=== PATIENT | female | born 1945 | race Caucasian/White ===

== ENCOUNTER 2016-07-20 14:56 | Emergency (ER) | payer MEDICARE, OTHER ==
[~2016-07-20] VITALS: Ht 170.2 cm; Wt 95.3 kg
[~2016-07-20 14:56] MED LIST: AMOX500C2 PO; ASP81TEC PO; CALC-80 PO; CIPR500T78 PO; CODE-54 PO; CYCL10TA45 PO; ESTR0.5T PO; HYDR-3583 PO; METO-272 PO; METO50TA2 PO; METR500T PO; MULT-608 PO; OMEG-9 PO; Sertraline Hcl PO; TRIA1CAP15 PO; TRIA1CAP4 PO; VANC125C4 PO
--- NOTE | 2016-07-20 15:04 | ED Fall/Injury ---
General Stated Complaint: FALL Source: patient, EMS Exam Limitations: no limitations History of Present Illness Time seen by provider: 15:02 Initial Comments To ER per EMS with reports of a fall that occurred at the all the grocery store. Patient normally walks with a "walking stick". She states that she was going inside to get some Lysol spray and while walking across the parking lot she fell face first. She does not recall why she fell as to whether or not she tripped/stumbled but she states she did not have any preceding lightheadedness, shortness of breath, chest pain or palpitations. At this time she feels back to normal other than that she does have some neck pain, bilateral knee pain, right foot pain. She arrives in a hard cervical collar Occurred: just prior to arrival Severity: moderate Injuries/Pain Location: neck, lower extremity Associated Symptoms (Fall): Denies Symptoms Allergies and Home Medications Allergies Coded Allergies: clindamycin (Verified Allergy, Unknown, SEVERE DIARRHEA, 09/07/14) acetaminophen (Verified Adverse Reaction, Severe, NAUSEA, 09/07/14) codeine (Verified Adverse Reaction, Severe, NAUSEA, 09/07/14) Home Medications Metoprolol Tartrate 50 Mg Tablet, 50 MG PO BID, (Reported) Metronidazole 500 Mg Tab, 1 EACH PO TID, #21 Ref 0 Prescribed by: ANAT BERNABE on 09/09/14 1003 Vancomycin Hcl 125 Mg Capsule, 125 MG PO QID, #28 Ref 0 Prescribed by: ANAT BERNABE on 09/09/14 1003 [Sertraline Hcl] 50 MG TABLET, 25 MG PO HS, #30 Ref 2 Prescribed by: ANAT BERNABE on 09/09/14 1003 Constitutional: see HPI Eyes: No Symptoms Reported Ears, Nose, Mouth, Throat: no symptoms reported Respiratory: no symptoms reported Cardiovascular: no symptoms reported Genitourinary: no symptoms reported Musculoskeletal: see HPI, neck pain Skin: no symptoms reported Psychiatric/Neurological: No Symptoms Reported Past Nkfvdjo-Fjqvjr-Jzrnwr Hx Immunizations Up To Date Tetanus Booster (TDap): More than 5yrs PED Vaccines UTD: Yes Seasonal Allergies Seasonal Allergies: No Surgeries HX Surgeries: Yes Surgeries: Adenoidectomy, Tonsillectomy Respiratory Hx Respiratory Disorders: No Cardiovascular Hx Cardiac Disorders: Yes Cardiac Disorders: Hypertension Neurological Hx Neurological Disorders: No Reproductive System Hx Reproductive Disorders: No Sexually Transmitted Disease: No Female Reproductive Disorders: Denies Genitourinary Hx Genitourinary Disorders: No Gastrointestinal Hx Gastrointestinal Disorders: No Musculoskeletal Hx Musculoskeletal Disorders: Yes (ARTHRITIS) Endocrine Hx Endocrine Disorders: No HEENT HX ENT Disorders: No Cancer Hx Cancer: No Psychosocial Hx Psychiatric Problems: No Integumentary HX Skin/Integumentary Disorder: No Blood Transfusions Hx Blood Disorders: No Family Medical History Family Medial History: Arthritis Completed stroke Seizure disorder No Family History of: AIDS Abdominal aortic aneurysm Sutter's disease Alcoholism Alzheimer's disease Aphasia Asthma Cancer of mouth Cardiovascular disease Cataracts Colon cancer Congenital disease Congenital heart disease Coronary thrombosis Cystic fibrosis Deafness or hearing loss Dementia Diabetes mellitus Drug abuse Dysphasia Fibrocystic disease of breast Gastroenteritis Glaucoma Headache disorder Hypercholesterolemia Hypertension Infertility Kidney disease Myocardial infarction Neoplasm Not obtainable due to adoption Osteoporosis Parkinson's disease Prostate cancer Psychosocial problem Respiratory disorder Severe allergy Thyroid disease Tuberculosis Visual disorder Physical Exam Vital Signs Vital Sign - Last 12Hours 07/20/16 07/20/16 15:12 15:18 Temp 97.5 Pulse 70 Resp 18 B/P (MAP) 155/86 Pulse Ox 98 O2 Delivery Room Air Capillary Refill : General Appearance: WD/WN, no apparent distress HEENT: PERRL/EOMI, normal ENT inspection Neck: normal inspection, other (she is in a rigid cervical collar) Respiratory: lungs clear, normal breath sounds, no respiratory distress, no accessory muscle use Gastrointestinal: normal bowel sounds, non tender, soft Neurologic/Psychiatric: alert, normal mood/affect, oriented x 3 Comments GCS 15, laughing, joking, very pleasant. Shari Coma Score Best Eye Response: (4) Open Spontaneously Best Verbal Response: (5) Oriented Best Motor Response: (6) Obeys Commands [place] Total: 15 Progress/Results/Core Measures Results/Orders Lab Results Laboratory Tests Test 07/20/16 15:37 Range/Units White Blood Count 7.9 4.3-11.0 10^3/uL Red Blood Count 3.85 L 4.35-5.85 10^6/uL Hemoglobin 11.2 L 11.5-16.0 G/DL Hematocrit 34 L 35-52 % Mean Corpuscular Volume 88 80-99 FL Mean Corpuscular Hemoglobin 29 25-34 PG Mean Corpuscular Hemoglobin Concent 33 32-36 G/DL Red Cell Distribution Width 14.0 10.0-14.5 % Platelet Count 252 130-400 10^3/uL Mean Platelet Volume 9.4 7.4-10.4 FL Neutrophils (%) (Auto) 59 42-75 % Lymphocytes (%) (Auto) 27 12-44 % Monocytes (%) (Auto) 10 0-12 % Eosinophils (%) (Auto) 4 0-10 % Basophils (%) (Auto) 0 0-10 % Neutrophils # (Auto) 4.7 1.8-7.8 X 10^3 Lymphocytes # (Auto) 2.2 1.0-4.0 X 10^3 Monocytes # (Auto) 0.8 0.0-1.0 X 10^3 Eosinophils # (Auto) 0.3 0.0-0.3 10^3/uL Basophils # (Auto) 0.0 0.0-0.1 10^3/uL Sodium Level 141 135-145 MMOL/L Potassium Level 4.3 3.6-5.0 MMOL/L Chloride Level 109 H 98-107 MMOL/L Carbon Dioxide Level 28 21-32 MMOL/L Anion Gap 4 L 5-14 MMOL/L Blood Urea Nitrogen 23 H 7-18 MG/DL Creatinine 1.34 H 0.60-1.30 MG/DL Estimat Glomerular Filtration Rate 39 BUN/Creatinine Ratio 17 Glucose Level 95 70-105 MG/DL Calcium Level 9.2 8.5-10.1 MG/DL Total Bilirubin 0.3 0.1-1.0 MG/DL Aspartate Amino Transf (AST/SGOT) 28 5-34 U/L Alanine Aminotransferase (ALT/SGPT) 25 0-55 U/L Alkaline Phosphatase 120 40-136 U/L Total Protein 6.8 6.4-8.2 G/DL Albumin 3.6 3.2-4.5 G/DL My Orders Orders - AVRIL STANLEY APRN Cbc With Automated Diff (07/20/16 15:02) Comprehensive Metabolic Panel (07/20/16 15:02) Ct Head/Face/Cervical Wo (07/20/16 15:02) Knee, 3 Views, Bilateral (07/20/16 15:02) Foot, Right, 3 View (07/20/16 15:02) Vital Signs/I&O Vital Sign - Last 12Hours 07/20/16 07/20/16 15:12 15:18 Temp 97.5 97.5 Pulse 70 70 Resp 18 16 B/P (MAP) 155/86 155/86 (109) Pulse Ox 98 98 O2 Delivery Room Air Diagnostic Imaging Diagonstic Imaging: CT Comments NAME: LYNNETTE CHOI [facility] REC#: [id number] PT STATUS: REG ER : 1945 PHYSICIAN: AVRIL STANLEY APRN ADMIT DATE: 07/20/16/ER Draft Date of Exam:07/20/16 CT HEAD/FACE/CERVICAL WO PROCEDURE: CT head, face, and cervical spine without contrast. TECHNIQUE: Multiple contiguous axial images were obtained through the head, neck, and facial bones without the use of intravenous contrast. Sagittal and coronal reformations through the cervical spine and facial bones were also performed. INDICATION: Fall. Split lip. FINDINGS: CT facial bones: There is soft tissue swelling over the upper lip on the right. No fractures are demonstrated throughout the facial bones. Paranasal sinuses are well-aerated. Nasal septum is mildly deviated to the right. No evidence of dental fractures. IMPRESSION: Soft tissue swelling over the lip with no dental fractures or bony fractures of the face. CT head: The ventricles and cortical gyral pattern show mild atrophic changes. No evidence of intracranial hemorrhage. There is no mass effect. No extra-axial fluid collection. Basal cisterns are clear. Mastoid air cells and paranasal sinuses are clear. Bone windows show no calvarial fractures. IMPRESSION: Cortical atrophy otherwise negative CT head. CT cervical spine: Sagittal and coronal reformatted images show good alignment of the vertebral bodies. Body heights are well maintained. There is loss of disc space at the C6-C7 level with hypertrophic lipping both anteriorly and posteriorly along the endplates. There is no evidence of fracture or subluxation. Facets show good alignment with mild degenerative change. The atlantoaxial joint is in good alignment with degenerative change. The prevertebral soft tissues appear normal. IMPRESSION: Degenerative cervical disc disease with no acute abnormalities. Dictated on workstation # [id number] Dict: 07/20/16 1533 Trans: 07/20/16 1615 [facility] [id number] Interpreted by: MAMADOU MORALES MD Electronically signed by: Departure Communication Progress Notes 1814-cervical collar removed at this time. Impression Impression: Primary Impression: Fall Additional Impression: Cervical sprain Disposition: HOME, SELF-CARE Condition: Stable Departure-Patient Inst. Decision time for Depature: 16:29 Referrals: ANAT BERNABE DO (PCP/Family) Primary Care Physician Add. Discharge Instructions: 1. Return to ER for any concerns 2. Follow-up with your doctor next week 3. AVRIL STANLEY APRN Jul 20, 2016 15:04
--- NOTE | 2016-07-20 15:44 | Diagnostic Imaging Report ---
INDICATION: Bilateral knee pain. History of fall. EXAMINATION: Nonweightbearing images of the knee were obtained. FINDINGS: Diffuse osteoarthritic changes throughout both knees. Hypertrophic bony lipping along the medial and lateral femoral condyles and tibial plateau as well as the patellofemoral joint. There are no fractures. IMPRESSION: Diffuse osteoarthritis, bilaterally, with no acute changes. Dictated by: Dictated on workstation # [id number]
--- NOTE | 2016-07-20 15:45 | Diagnostic Imaging Report ---
INDICATION: Fall. Foot pain. EXAMINATION: Three views of the right foot were obtained. FINDINGS: There are no fractures or dislocations. MP joints are in good alignment as are the interphalangeal joints. There is considerable osteoarthritic disease along the metatarsal tarsal joints. IMPRESSION: Degenerative osteoarthritic changes of the midfoot with no acute abnormalities. Dictated by: Dictated on workstation # [id number]
[2016-07-20 16:04] LABS: BASOPHILS % (AUTO) 0 % (0-10); EOSINOPHILS # (AUTO) 0.3 10^3/uL (0.0-0.3); EOSINOPHILS % (AUTO) 4 % (0-10); LYMPHOCYTES # (AUTO) 2.2 X 10^3 (1.0-4.0); LYMPHOCYTES % (AUTO) 27 % (12-44); MEAN CORPUSCULAR HEMOGLOBIN 29 PG (25-34); MEAN CORPUSCULAR HGB CONC 33 G/DL (32-36); MEAN CORPUSCULAR VOLUME 88 FL (80-99); MEAN PLATELET VOLUME 9.4 FL (7.4-10.4); MONOCYTES # (AUTO) 0.8 X 10^3 (0.0-1.0); MONOCYTES % (AUTO) 10 % (0-12); NEUTROPHILS # (AUTO) 4.7 X 10^3 (1.8-7.8); NEUTROPHILS % (AUTO) 59 % (42-75); PLATELET COUNT 252 10^3/uL (130-400); RED BLOOD COUNT 3.85 10^6/uL (4.35-5.85); WHITE BLOOD COUNT 7.9 10^3/uL (4.3-11.0)
--- NOTE | 2016-07-20 16:16 | Diagnostic Imaging Report ---
PROCEDURE: CT head, face, and cervical spine without contrast. TECHNIQUE: Multiple contiguous axial images were obtained through the head, neck, and facial bones without the use of intravenous contrast. Sagittal and coronal reformations through the cervical spine and facial bones were also performed. INDICATION: Fall. Split lip. FINDINGS: CT facial bones: There is soft tissue swelling over the upper lip on the right. No fractures are demonstrated throughout the facial bones. Paranasal sinuses are well-aerated. Nasal septum is mildly deviated to the right. No evidence of dental fractures. IMPRESSION: Soft tissue swelling over the lip with no dental fractures or bony fractures of the face. CT head: The ventricles and cortical gyral pattern show mild atrophic changes. No evidence of intracranial hemorrhage. There is no mass effect. No extra-axial fluid collection. Basal cisterns are clear. Mastoid air cells and paranasal sinuses are clear. Bone windows show no calvarial fractures. IMPRESSION: Cortical atrophy otherwise negative CT head. CT cervical spine: Sagittal and coronal reformatted images show good alignment of the vertebral bodies. Body heights are well maintained. There is loss of disc space at the C6-C7 level with hypertrophic lipping both anteriorly and posteriorly along the endplates. There is no evidence of fracture or subluxation. Facets show good alignment with mild degenerative change. The atlantoaxial joint is in good alignment with degenerative change. The prevertebral soft tissues appear normal. IMPRESSION: Degenerative cervical disc disease with no acute abnormalities. Dictated by: Dictated on workstation # [id number]
[2016-07-20 16:22] LABS: ALBUMIN 3.6 G/DL (3.2-4.5); BILIRUBIN,TOTAL 0.3 MG/DL (0.1-1.0); CALCIUM 9.2 MG/DL (8.5-10.1); CREATININE SERUM 1.34 MG/DL (0.60-1.30); POTASSIUM 4.3 MMOL/L (3.6-5.0); TOTAL PROTEIN 6.8 G/DL (6.4-8.2)
[2016-07-20 16:55] VITALS: BP 152/76
--- OUTSIDE RECORDS SUMMARY | 2016-08-12 08:51 | XMS REPORT | Continuity of Care Document ---
Author Author [facility] Organization [facility] Address Unknown Phone Unavailable Allergies Active Description Code Type Severity Reaction Onset Reported/Identified Relationship to Patient Clinical Status Yes No Known Drug Allergies [id number] Drug Allergy Unknown N/ A 07/17/2011 Yes acetaminophen [id number] Drug Allergy Severe NAUSEA 09/07/2014 Yes codeine [id number] Drug Allergy Severe NAUSEA 09/07/2014 Yes clindamycin [id number] Drug Allergy Unknown SEVERE DIARRHEA 09/07/2014 Medications Problems Date Dx Coded Attending Type Code Diagnosis Diagnosed By 07/17/2011 Ot 610.2 FIBROADENOSIS OF BREAST 07/17/2011 Ot 610.3 FIBROSCLEROSIS OF BREAST 07/17/2011 Ot 610.4 MAMMARY DUCT ECTASIA 07/17/2011 Ot 610.8 BENIGN MAMM DYSPLAS NEC 07/17/2011 Ot 722.4 CERVICAL DISC DEGEN 09/30/2011 Ot 451.2 THROMBOPHLEBITIS LEG NOS 09/30/2011 Ot 729.5 PAIN IN LIMB 11/30/2011 Ot 459.9 CIRCULATORY DISEASE NOS 04/18/2012 Ot 300.00 ANXIETY STATE NOS 04/18/2012 Ot 401.9 HYPERTENSION NOS 04/18/2012 Ot 473.9 CHRONIC SINUSITIS NOS 04/18/2012 Ot 785.1 PALPITATIONS 04/18/2012 Ot 787.02 NAUSEA ALONE 02/12/2014 ANAT GRIFFIN DO Ot 599.0 URIN TRACT INFECTION NOS 02/12/2014 ANAT GRIFFIN DO Ot 847.0 SPRAIN OF NECK 02/12/2014 ANAT GRIFFIN DO Ot 847.1 SPRAIN THORACIC REGION 02/12/2014 ANAT GRIFFIN DO Ot 847.2 SPRAIN LUMBAR REGION 02/12/2014 ANAT GRIFFIN DO Ot 920 CONTUSION FACE/SCALP/NCK 02/12/2014 ANAT GRIFFIN DO Ot 923.00 CONTUSION SHOULDER REG 02/12/2014 ANAT GRIFFIN DO Ot 924.11 CONTUSION OF KNEE 02/12/2014 ELIAS KIMBALL ANAT Toney Ot 959.09 INJURY OF FACE AND NECK 02/12/2014 ANAT GRIFFIN DO Ot E000.8 OTHER EXTERNAL CAUSE STATUS 02/12/2014 ANAT GRIFFIN DO Ot E849.0 ACCIDENT IN HOME 02/12/2014 ANAT GRIFFIN DO Ot E888.1 FALL STRIKING OBJECT NEC 04/21/2014 Ot V76.12 04/21/2014 Ot 626.8 04/21/2014 Ot 611.72 04/21/2014 Ot V76.12 04/21/2014 Ot 793.80 04/21/2014 Ot 610.0 04/21/2014 Ot 611.72 04/21/2014 Ot 610.3 04/21/2014 Ot 610.3 04/21/2014 Ot 793.89 04/21/2014 Ot V67.09 04/21/2014 Ot 610.0 04/21/2014 Ot 611.72 04/21/2014 Ot V72.63 04/21/2014 Ot V74.8 04/21/2014 Ot V67.09 04/21/2014 Ot 721.3 04/21/2014 Ot 722.4 04/21/2014 Ot 729.5 04/21/2014 Ot E000.8 04/21/2014 Ot E849.0 04/21/2014 Ot E888.9 04/21/2014 ANAT BERNABE DO Ot V76.12 04/21/2014 ANAT BERNABE DO Ot 722.4 04/21/2014 ANAT BERNABE DO Ot 959.9 04/21/2014 ANAT BERNABE DO Ot E928.9 04/21/2014 KELLI BERNABE LINOLEUM TILE LAYER Ot 729.5 04/21/2014 KELLI BERNABE LINOLEUM TILE LAYER Ot 729.81 04/21/2014 ANAT BERNABE DO Ot 959.4 04/21/2014 ANAT BERNABE DO Ot E000.8 04/21/2014 ANAT BERNABE DO Ot E849.0 04/21/2014 ANAT BERNABE DO Ot E888.9 05/22/2014 ANAT BERNABE DO Ot 465.9 05/22/2014 ANAT BERNABE DO Ot 787.91 08/23/2014 Ot V76.12 08/23/2014 Ot 626.8 08/23/2014 Ot 611.72 08/23/2014 Ot V76.12 08/23/2014 Ot 793.80 08/23/2014 Ot 610.0 08/23/2014 Ot 611.72 08/23/2014 Ot 610.3 08/23/2014 Ot 610.3 08/23/2014 Ot 793.89 08/23/2014 Ot V67.09 08/23/2014 Ot 610.0 08/23/2014 Ot 611.72 08/23/2014 Ot V72.63 08/23/2014 Ot V74.8 08/23/2014 Ot V67.09 08/23/2014 Ot 721.3 08/23/2014 Ot 722.4 08/23/2014 Ot 729.5 08/23/2014 Ot E000.8 08/23/2014 Ot E849.0 08/23/2014 Ot E888.9 08/23/2014 ANAT BERNABE DO Ot V76.12 08/23/2014 ANAT BERNABE DO Ot 722.4 08/23/2014 ANAT BERNABE DO Ot 959.9 08/23/2014 ANAT BERNABE DO Ot E928.9 08/23/2014 KELLI BERNABE LINOLEUM TILE LAYER Ot 729.5 08/23/2014 KELLI BERNABE LINOLEUM TILE LAYER Ot 729.81 08/23/2014 ANAT BERNABE DO Ot 959.4 08/23/2014 ANAT BERNABE DO Ot E000.8 08/23/2014 ANAT BERNABE DO Ot E849.0 08/23/2014 ANAT BERNABE DO Ot E888.9 08/23/2014 ANAT BERNABE DO Ot 465.9 08/23/2014 ANAT BERNABE DO Ot 787.91 09/09/2014 ANAT BERNABE DO Ot 008.45 INTESTINAL INFECTION DUE TO CLOSTRIDIUM 09/09/2014 ANAT BERNABE DO Ot 276.51 DEHYDRATION 09/09/2014 ANAT BERNABE DO Ot 278.00 OBESITY, NOS 09/09/2014 ANAT BERNABE DO Ot 311 DEPRESSIVE DISORDER NEC 09/09/2014 ANAT BERNABE DO Ot 401.9 HYPERTENSION NOS 09/09/2014 ANAT BERNABE DO Ot 455.6 HEMORRHOIDS NOS 09/09/2014 ANAT BERNABE DO Ot 459.81 VENOUS INSUFFICIENCY NOS 09/09/2014 ANAT BERNABE DO Ot 477.9 ALLERGIC RHINITIS NOS 09/09/2014 ANAT BERNABE DO Ot 584.9 ACUTE RENAL FAILURE, UNSPECIFIED 09/09/2014 ANAT BERNABE DO Ot 588.89 OTH SPEC DISORDERS RESULTING FROM IMPAIR 09/09/2014 ANAT BERNABE DO Ot 715.89 OSTEOARTHROSIS-MULT SITE 09/09/2014 ANAT BERNABE DO, Ot E930.9 ADV EFF ANTIBIOTIC NOS 09/09/2014 ANAT BERNABE DO, Ot E944.5 ADV EFF ELECTROLYTE AGNT 09/09/2014 ANAT BERNABE DO, Ot V58.62 ENCOUNT FOR LONG-TERM(CURRENT) USE OF AN 09/09/2014 ANAT BERNABE DO Ot V85.25 BODY MASS INDEX 29.0-29.9, ADULT 10/27/2014 ANAT BERNABE DO Ot 787.91 11/21/2014 ANAT BERNABE DO Ot 787.91 DIARRHEA 02/20/2016 Ot 610.0 SOLITARY CYST OF BREAST 02/20/2016 Ot 611.72 LUMP OR MASS IN BREAST 02/20/2016 Ot 610.3 FIBROSCLEROSIS OF BREAST 02/20/2016 Ot 610.3 FIBROSCLEROSIS OF BREAST 02/20/2016 Ot 793.89 OTH (ABN) FINDINGS ON RADIOLOGICAL EXAMI 02/20/2016 Ot V67.09 SURGERY FOLLOW-UP, OTHER SURGERY 02/20/2016 Ot 610.0 SOLITARY CYST OF BREAST 02/20/2016 Ot 611.72 LUMP OR MASS IN BREAST 02/20/2016 Ot V72.63 PRE-PROCEDURAL LABORATORY EXAMINATION 02/20/2016 Ot V74.8 SCREEN-BACTERIAL DIS NEC 02/20/2016 Ot V67.09 SURGERY FOLLOW-UP, OTHER SURGERY 02/20/2016 Ot 721.3 LUMBOSACRAL SPONDYLOSIS 02/20/2016 Ot 722.4 CERVICAL DISC DEGEN 02/20/2016 Ot 729.5 PAIN IN LIMB 02/20/2016 Ot E000.8 OTHER EXTERNAL CAUSE STATUS 02/20/2016 Ot E849.0 ACCIDENT IN HOME 02/20/2016 Ot E888.9 FALL NOS 02/20/2016 ANAT BERNABE DO Ot V76.12 OTH SCREEN MAMMO-MALIGN NEOPLASM OF ANITA 02/20/2016 ANAT BERNABE DO Ot 722.4 CERVICAL DISC DEGEN 02/20/2016 ANAT BERNABE DO Ot 959.9 INJURY-SITE NOS 02/20/2016 ANAT BERNABE DO Ot E928.9 ACCIDENT NOS 02/20/2016 FLORECITAKELLI Bryon LINOLEUM TILE LAYER Ot 729.5 PAIN IN LIMB 02/20/2016 KELLI BERNABE LINOLEUM TILE LAYER Ot 729.81 SWELLING OF LIMB 02/20/2016 ANAT BERNABE DO Ot 959.4 HAND INJURY NOS 02/20/2016 ANAT BERNABE DO Ot E000.8 OTHER EXTERNAL CAUSE STATUS 02/20/2016 ANAT BERNABE DO Ot E849.0 ACCIDENT IN HOME 02/20/2016 ANAT BERNABE DO Ot E888.9 FALL NOS 02/20/2016 ANAT BERNABE DO Ot 465.9 ACUTE URI NOS 02/20/2016 ANAT BERNABE DO Ot 787.91 DIARRHEA 02/20/2016 ANAT BERNABE DO Ot 787.91 DIARRHEA 02/24/2016 ANAT BERNABE DO Ot Z12.31 ENCNTR SCREEN MAMMOGRAM FOR MALIGNANT NE 03/01/2016 ANAT BERNABE DO Ot Z12.31 ENCNTR SCREEN MAMMOGRAM FOR MALIGNANT NE 03/06/2016 ANAT BERNABE DO Ot R92.8 OTH ABN AND INCONCLUSIVE FINDINGS ON DX 03/27/2016 ANAT BERNABE DO Ot R92.8 OTH ABN AND INCONCLUSIVE FINDINGS ON DX 07/23/2016 AVRIL STANLEY APRN Ot I10 ESSENTIAL (PRIMARY) HYPERTENSION 07/23/2016 AVRIL STANLEY APRN Ot M17.0 BILATERAL PRIMARY OSTEOARTHRITIS OF KNEE 07/23/2016 AVRIL STANLEY APRN Ot M19.071 PRIMARY OSTEOARTHRITIS, RIGHT ANKLE AND 07/23/2016 AVRIL STANLEY APRN Ot S13.4XXA SPRAIN OF LIGAMENTS OF CERVICAL SPINE, I 07/23/2016 AVRIL STANLEY APRN Ot S19.9XXA UNSPECIFIED INJURY OF NECK, INITIAL ENCO 07/23/2016 AVRIL STANLEY APRN Ot W18.30XA FALL ON SAME LEVEL, UNSPECIFIED, INITIAL 07/23/2016 AVRIL STANLEY APRN Ot Y92.[address] OF OCCURRENCE O 07/23/2016 AVRIL STANLEY APRN Ot Y99.8 OTHER EXTERNAL CAUSE STATUS 07/23/2016 AVRIL STANLEY APRN Ot Z79.899 OTHER RETORT ENGINEER (CURRENT) DRUG THERAPY Procedures Results Test Result Range Complete blood count (CBC) with automated white blood cell (WBC) differential - 07/20/16 15:37 Blood leukocytes automated count (number/volume) 7.9 10*3/ uL 4.3-11.0 Blood erythrocytes automated count (number/volume) 3.85 10*6 /uL 4.35-5.85 Venous blood hemoglobin measurement (mass/volume) 11.2 g/dL 11.5-16.0 Blood hematocrit (volume fraction) 34 % 35-52 Automated erythrocyte mean corpuscular volume 88 [foz_us] 80-99 Automated erythrocyte mean corpuscular hemoglobin (mass per erythrocyte) 29 pg 25-34 Automated erythrocyte mean corpuscular hemoglobin concentration measurement ( mass/volume) 33 g/dL 32-36 Automated erythrocyte distribution width ratio 14.0 % 10.0-14.5 Automated blood platelet count (count/volume) 252 10*3/uL 130-400 Automated blood platelet mean volume measurement 9.4 [foz_us ] 7.4-10.4 Automated blood neutrophils/100 leukocytes 59 % 42-75 Automated blood lymphocytes/100 leukocytes 27 % 12-44 Blood monocytes/100 leukocytes 10 % 0-12 Automated blood eosinophils/100 leukocytes 4 % 0-10 Automated blood basophils/100 leukocytes 0 % 0-10 Blood neutrophils automated count (number/volume) 4.7 10*3 1.8-7.8 Blood lymphocytes automated count (number/volume) 2.2 10*3 1.0-4.0 Blood monocytes automated count (number/volume) 0.8 10*3 0.0-1.0 Automated eosinophil count 0.3 10*3/uL 0.0-0.3 Automated blood basophil count (count/volume) 0.0 10*3/uL 0.0-0.1 Comprehensive metabolic panel - 07/20/16 15:37 Serum or plasma sodium measurement (moles/volume) 141 mmol/ L 135-145 Serum or plasma potassium measurement (moles/volume) 4.3 mmol/L 3.6-5.0 Serum or plasma chloride measurement (moles/volume) 109 mmol /L 98-107 Carbon dioxide 28 mmol/L 21-32 Serum or plasma anion gap determination (moles/volume) 4 mmol/L 5-14 Serum or plasma urea nitrogen measurement (mass/volume) 23 mg/dL 7-18 Serum or plasma creatinine measurement (mass/volume) 1.34 mg /dL 0.60-1.30 Serum or plasma urea nitrogen/creatinine mass ratio 17 NRG Serum or plasma creatinine measurement with calculation of estimated glomerular filtration rate 39 NRG Serum or plasma glucose measurement (mass/volume) 95 mg/dL 70-105 Serum or plasma calcium measurement (mass/volume) 9.2 mg/dL 8.5-10.1 Serum or plasma total bilirubin measurement (mass/volume) 0.3 mg/dL 0.1-1.0 Serum or plasma alkaline phosphatase measurement (enzymatic activity/volume) 120 U/L 40-136 Serum or plasma aspartate aminotransferase measurement (enzymatic activity/ volume) 28 U/L 5-34 Serum or plasma alanine aminotransferase measurement (enzymatic activity/volume ) 25 U/L 0-55 Serum or plasma protein measurement (mass/volume) 6.8 g/dL 6.4-8.2 Serum or plasma albumin measurement (mass/volume) 3.6 g/dL 3.2-4.5 Encounters ACCT No. Visit Date/Time Discharge Status Pt. Type Provider Facility Loc./Unit Complaint [id number] 07/20/2016 14:58:00 2016 16:55:00 DIS Outpatient AVRIL STANLEY APRN [facility] ER FALL [id number] 11/22/2014 00:14:00 2014 23:59:59 CLS Preadmit ANAT BERNABE DO [facility] LAB DIARRHEA [id number] 08/23/2014 16:43:00 2014 00:01:00 DIS Outpatient ANAT BERNABE DO [facility] LAB DIARRHEA [id number] 09/06/2014 17:39:00 2014 12:30:00 DIS Inpatient ANAT BERNABE DO [facility] SURGICAL DEHYDRATION CDIFF [id number] 04/21/2014 14:41:00 2013 23:59:59 CLS Outpatient ANAT BERNABE DO [facility] LAB DIZZINES,UTI [id number] 02/12/2014 18:54:00 2013 23:59:59 CLS Emergency ELIAS ANAT KIMBALL [facility] ER FALL ABDOMINAL/NECK PAIN [id number] 12/30/2013 17:27:00 2013 23:59:59 CLS Outpatient ANAT BERNABE DO [facility] RAD TRAUMA [id number] 09/18/2013 11:17:00 2013 23:59:59 CLS Outpatient KELLI BERNABE Bryon MARKS [facility] RAD LOWER BILAT SWELLING [id number] 09/03/2013 16:18:00 2013 23:59:59 CLS Outpatient ANAT BERNABE DO [facility] RAD TRAUMA [id number] 07/08/2013 10:56:00 2013 23:59:59 CLS Outpatient ANAT BERNABE DO [facility] RAD SCREENING [id number] 03/05/2016 08:07:00 ACT Outpatient ANAT BERNABE DO [facility] RAD ABNORMAL MAMMO [id number] 02/20/2016 10:51:00 ACT Outpatient ANAT BERNABE DO [facility] RAD SCREENING [id number] 05/02/2012 10:39:00 Document Registration [id number] 04/18/2012 12:08:00 Document Registration [id number] 02/06/2012 13:08:00 Document Registration [id number] 11/30/2011 02:42:00 Document Registration [id number] 09/30/2011 19:53:00 Document Registration [id number] 07/17/2011 05:38:00 Document Registration [id number] 07/10/2011 08:37:00 Document Registration [id number] 07/03/2011 08:49:00 Document Registration [id number] 06/04/2011 12:20:00 Document Registration [id number] 11/01/2010 11:33:00 Document Registration [id number] 09/20/2010 14:12:00 Document Registration [id number] 06/21/2010 10:54:00 Document Registration [id number] 06/12/2010 09:54:00 Document Registration [id number] 05/17/2010 10:48:00 Document Registration [id number] 04/20/2009 09:58:00 Document Registration
== END 2016-07-20 16:55 | disposition home or self-care (01) ==
LOC: EDUNIT# 14:56 → ER 14:58
DX: S13.4XXA Sprain of ligaments of cervical spine, initial encounter (principal); M17.0 Bilateral primary osteoarthritis of knee; M19.071 Primary osteoarthritis, right ankle and foot; I10 Essential (primary) hypertension; Z79.899 Other long term (current) drug therapy; W18.30XA Fall on same level, unspecified, initial encounter; Y92.481 Parking lot as the place of occurrence of the external cause; Y99.8 Other external cause status
CPT/HCPCS: 36415; 70450; 70486; 72125; 73630; 80053; 85025; 99283

== ENCOUNTER → 2016-11-23 | Outpatient (CLI) | payer MEDICARE, OTHER ==
--- NOTE | 2016-11-23 18:10 | Diagnostic Imaging Report ---
PROCEDURE: MR imaging of the brain without contrast. TECHNIQUE: Multiplanar, multisequence MR imaging of the brain was performed without contrast. INDICATION: Hit head on wall in August 2016. Continued headaches. FINDINGS: There is no restricted diffusion to suggest ischemic process. The ventricles and cortical gyral pattern are normal. There is no intracranial hemorrhage or mass effect. There is no extra-axial fluid collection. Basal cisterns are clear. CP angles appear normal. T2 FLAIR sequence shows diffuse periventricular white matter changes throughout the centrum semiovale. These do not significantly involve the corpus callosum and are more peripheral in nature. Brainstem appears normal. The optic chiasm and pituitary are normal. There are no intracranial masses. There is a very small amount of fluid noted in the right mastoid air cells. Left mastoid air cells are clear. Paranasal sinuses are clear. Orbital contents are symmetrical. IMPRESSION: 1. Bilateral white matter changes felt most likely to represent chronic small vessel disease. Mild cortical atrophy. 2. No acute intracranial abnormalities or masses demonstrated. Dictated by: Dictated on workstation # [id number]
== END ==
LOC: RAD 15:13
PROVIDERS: ATTEND Otolaryngology Otolaryngology/Facial Plastic Surgery
DX: R51 Headache (principal); R43.2 Parageusia
CPT/HCPCS: 70551

== ENCOUNTER → 2016-12-27 | Outpatient (CLI) | payer MEDICARE, OTHER ==
--- NOTE | 2016-12-27 13:39 | Diagnostic Imaging Report ---
INDICATION: Cough. PA and lateral views were obtained. FINDINGS: The heart size, mediastinal configuration, and pulmonary vascularity are within normal limits. There is no pleural effusion, pneumothorax, or pneumonia. The osseous structures are unremarkable. IMPRESSION: No acute cardiopulmonary abnormality. Dictated by: Dictated on workstation # [id number]
== END ==
LOC: RAD 12:54
PROVIDERS: ATTEND Internal Medicine
DX: R05 Cough (principal)
CPT/HCPCS: 71020

== ENCOUNTER → 2017-01-02 | Outpatient (CLI) | payer MEDICARE, OTHER ==
[~2017-01-02] MED LIST changes: +ALBU90AE; +AMOX-355 PO; +CETI10TA17 PO; +FLUT16SP22 NS; +FLUT1BLS INH; +MONT10TA24 PO; +MULT-1029 PO; +NAPR220T66 PO; +NYST1000 PO; +OMEP20CA12 PO; +PRD10T; +RT-ALBUINH INH; +TRIA1TAB3 PO
[2017-01-06 15:55] LABS: B PARAPERTUSIS DNA Not Detected (Not Detected); B PERTUSSIS DNA Not Detected (Not Detected)
== END ==
LOC: LAB 12:14
PROVIDERS: ATTEND Internal Medicine
DX: R05 Cough (principal)
CPT/HCPCS: 87798

== ENCOUNTER 2017-01-18 08:18 | Emergency (ER) | payer MEDICARE, OTHER ==
[~2017-01-18] VITALS: Ht 165.1 cm; Wt 94.3 kg
[~2017-01-18 08:18] MED LIST changes: -ALBU90AE; -AMOX-355 PO; -CETI10TA17 PO; -FLUT16SP22 NS; -FLUT1BLS INH; -MONT10TA24 PO; -MULT-1029 PO; -NAPR220T66 PO; -NYST1000 PO; -OMEP20CA12 PO; -PRD10T; -RT-ALBUINH INH; -TRIA1TAB3 PO
[2017-01-18] MEDS ORDERED: PRD10T (08:38)
[2017-01-18] MEDS ORDERED: OMEP20CA12 (08:38)
[2017-01-18] MEDS ORDERED: FLUT16SP22 (08:38)
[2017-01-18] MEDS ORDERED: ALBU90AE (08:38)
[2017-01-18] MEDS ORDERED: MONT10TA24 (08:38)
[2017-01-18 09:15] LABS: BASOPHILS % (AUTO) 0 % (0-10); EOSINOPHILS # (AUTO) 0.1 10^3/uL (0.0-0.3); EOSINOPHILS % (AUTO) 1 % (0-10); LYMPHOCYTES # (AUTO) 1.2 X 10^3 (1.0-4.0); LYMPHOCYTES % (AUTO) 14 % (12-44); MEAN CORPUSCULAR HEMOGLOBIN 30 PG (25-34); MEAN CORPUSCULAR HGB CONC 33 G/DL (32-36); MEAN CORPUSCULAR VOLUME 89 FL (80-99); MEAN PLATELET VOLUME 8.9 FL (7.4-10.4); MONOCYTES # (AUTO) 0.5 X 10^3 (0.0-1.0); MONOCYTES % (AUTO) 5 % (0-12); NEUTROPHILS # (AUTO) 6.8 X 10^3 (1.8-7.8); NEUTROPHILS % (AUTO) 79 % (42-75); PLATELET COUNT 287 10^3/uL (130-400); RED BLOOD COUNT 4.07 10^6/uL (4.35-5.85); RED CELL DISTRIBUTION WIDTH 13.1 % (10.0-14.5); WHITE BLOOD COUNT 8.7 10^3/uL (4.3-11.0)
--- NOTE | 2017-01-18 09:31 | Diagnostic Imaging Report ---
PROCEDURE: CT sinuses without contrast TECHNIQUE: Multiple contiguous axial images were obtained through the sinuses without the use of intravenous contrast. Coronal and sagittal reformations were then performed. INDICATION: Cough and sinus drainage. Visualized paranasal sinuses reveal no air-fluid level. There is minimal mural thickening within right ethmoid air cells and right maxillary sinus. The ostiomeatal complexes are patent with note made of right walter bullosa. There is also mild rightward bowing of the nasal septum with rightward septal spurring. Mastoid air cells are unremarkable in appearance. Note is made of horizontally oriented tooth along the floor of the right maxillary sinus. IMPRESSION: Minimal chronic right ethmoiditis and right maxillary sinusitis without evidence of acute sinusitis or air-fluid level. Dictated by: Dictated on workstation # [id number]
[2017-01-18 09:35] LABS: ALBUMIN 3.4 GM/DL (3.2-4.5); BILIRUBIN,TOTAL 0.4 MG/DL (0.1-1.0); CALCIUM 9.7 MG/DL (8.5-10.1); CREATININE SERUM 1.45 MG/DL (0.60-1.30); POTASSIUM 3.8 MMOL/L (3.6-5.0); TOTAL PROTEIN 7.4 GM/DL (6.4-8.2)
[2017-01-18 09:43] LABS: ERYTHROCYTE SEDIMENTATION RATE 77 MM/HR (0-30)
--- NOTE | 2017-01-18 10:14 | ED General ---
General Chief Complaint: Cough/Cold/Flu Symptoms Stated Complaint: WEAK,SINUS ISSUE Nursing Triage Note: SINUS SYMPTOMS SINCE AUGUST WAS TREATED X1 WEEK AGO WITH A PACK BY DR NGUYEN. SAW DR DESAI YESTERDAY WAS GIVEN STEROID IM AND WAS TO START ON PREDISON AND NASAL SPRAY HAS NOT USED IT YET Nursing Sepsis Screen: No Definite Risk Source of Information: Patient Exam Limitations: No Limitations History of Present Illness Time Seen by Provider: 10:09 Initial Comments The patient is a 71-year-old white female who presents the emergency room with a complaint of a cough since August. She reports the sensation of heavy thick postnasal drainage. She is seen Dr. Nguyen her primary physician several times. She is avoided antibiotics as she had a previous severe bout of C. difficile that about 2 years ago she recently saw Dr. Meneses. A variety of medications has been prescribed many of which she is loathe to take. She was given a shot of the cortisone yesterday. She was prescribed a steroid nasal spray and oral prednisone to be taken. She has not taken the prednisone because she states she has to take it 6 times a day. She was informed that this was 6 tablets a day and not 6 times a day. Timing/Duration: Other (4 months) Allergies and Home Medications Allergies Coded Allergies: clindamycin (Verified Allergy, Unknown, SEVERE DIARRHEA, 09/07/14) acetaminophen (Verified Adverse Reaction, Severe, NAUSEA, 09/07/14) codeine (Verified Adverse Reaction, Severe, NAUSEA, 09/07/14) Home Medications Albuterol Sulfate 90 Mcg Aer.pow.ba, (Reported) Fluticasone Propionate 16 Gm Bradford.susp, (Reported) Metoprolol Tartrate 50 Mg Tablet, 50 MG PO BID, (Reported) Montelukast Sodium 10 Mg Tablet, (Reported) Omeprazole 20 Mg Capsule.dr, (Reported) Prednisone 10 Mg Tab, (Reported) [Sertraline Hcl] 50 MG TABLET, 25 MG PO HS, #30 Ref 2 Prescribed by: ANAT NGUYEN on 09/09/14 1003 Constitutional: see HPI EENTM: hoarseness, nose congestion, throat pain Respiratory: cough Cardiovascular: no symptoms reported Gastrointestinal: no symptoms reported Genitourinary: no symptoms reported Musculoskeletal: no symptoms reported Skin: no symptoms reported Psychiatric/Neurological: No Symptoms Reported Past Zzoxzxy-Jdqxck-Vsaaiw Hx Patient Social History Alcohol Use: Denies Use Recreational Drug Use: No Smoking Status: Never a Smoker Recent Foreign Travel: No Contact w/Someone Who Travel: No Recent Infectious Disease Expo: No Immunizations Up To Date Tetanus Booster (TDap): More than 5yrs PED Vaccines UTD: Yes Seasonal Allergies Seasonal Allergies: No Surgeries History of Surgeries: Yes Surgeries: Adenoidectomy, Tonsillectomy Respiratory History of Respiratory Disorde: No Cardiovascular History of Cardiac Disorders: Yes Cardiac Disorders: Hypertension Neurological History of Neurological Disord: No Reproductive System Hx Reproductive Disorders: No Sexually Transmitted Disease: No Female Reproductive Disorders: Denies Gastrointestinal History of Gastrointestinal Di: No Musculoskeletal History of Musculoskeletal Dis: Yes (ARTHRITIS) Endocrine History of Endocrine Disorders: No Cancer History of Cancer: No Psychosocial History of Psychiatric Problem: No Integumentary History of Skin or Integumenta: No Blood Transfusions History of Blood Disorders: No Family Medical History Family Medial History: Arthritis Completed stroke Seizure disorder No Family History of: AIDS Abdominal aortic aneurysm Reeves's disease Alcoholism Alzheimer's disease Aphasia Asthma Cancer of mouth Cardiovascular disease Cataracts Colon cancer Congenital disease Congenital heart disease Coronary thrombosis Cystic fibrosis Deafness or hearing loss Dementia Diabetes mellitus Drug abuse Dysphasia Fibrocystic disease of breast Gastroenteritis Glaucoma Headache disorder Hypercholesterolemia Hypertension Infertility Kidney disease Myocardial infarction Neoplasm Not obtainable due to adoption Osteoporosis Parkinson's disease Prostate cancer Psychosocial problem Respiratory disorder Severe allergy Thyroid disease Tuberculosis Visual disorder Physical Exam Vital Signs Vital Sign - Last 12Hours 01/18/17 08:23 Temp 97.7 Pulse 74 Resp 18 B/P (MAP) 161/86 Pulse Ox 96 O2 Delivery Room Air Capillary Refill : Less Than 3 Seconds General Appearance: Mild Distress Eyes: Bilateral Eye Normal Inspection HEENT: Other (dry sticky tongue) Neck: Full Range of Motion, Normal Inspection, Non Tender, Supple, Carotid Bruit Respiratory: Chest Non Tender, Lungs Clear, Normal Breath Sounds, No Accessory Muscle Use, No Respiratory Distress Cardiovascular: Regular Rate, Rhythm, No Edema, No Gallop, No JVD, No Murmur, Normal Peripheral Pulses Gastrointestinal: Normal Bowel Sounds, No Organomegaly, No Pulsatile Mass, Non Tender, Soft Back: Normal Inspection, No CVA Tenderness, No Vertebral Tenderness Extremity: Normal Capillary Refill, Normal Inspection, Normal Range of Motion, Non Tender, No Calf Tenderness, No Pedal Edema Neurologic/Psychiatric: Alert, Oriented x3, No Motor/Sensory Deficits, Normal Mood/Affect Skin: Normal Color, Warm/Dry Lymphatic: No Adenopathy Progress/Results/Core Measures Results/Orders Lab Results Laboratory Tests Test 01/18/17 09:02 Range/Units White Blood Count 8.7 4.3-11.0 10^3/uL Red Blood Count 4.07 L 4.35-5.85 10^6/uL Hemoglobin 12.0 11.5-16.0 G/DL Hematocrit 36 35-52 % Mean Corpuscular Volume 89 80-99 FL Mean Corpuscular Hemoglobin 30 25-34 PG Mean Corpuscular Hemoglobin Concent 33 32-36 G/DL Red Cell Distribution Width 13.1 10.0-14.5 % Platelet Count 287 130-400 10^3/uL Mean Platelet Volume 8.9 7.4-10.4 FL Neutrophils (%) (Auto) 79 H 42-75 % Lymphocytes (%) (Auto) 14 12-44 % Monocytes (%) (Auto) 5 0-12 % Eosinophils (%) (Auto) 1 0-10 % Basophils (%) (Auto) 0 0-10 % Neutrophils # (Auto) 6.8 1.8-7.8 X 10^3 Lymphocytes # (Auto) 1.2 1.0-4.0 X 10^3 Monocytes # (Auto) 0.5 0.0-1.0 X 10^3 Eosinophils # (Auto) 0.1 0.0-0.3 10^3/uL Basophils # (Auto) 0.0 0.0-0.1 10^3/uL Erythrocyte Sedimentation Rate 77 H 0-30 MM/HR Sodium Level 139 135-145 MMOL/L Potassium Level 3.8 3.6-5.0 MMOL/L Chloride Level 103 98-107 MMOL/L Carbon Dioxide Level 25 21-32 MMOL/L Anion Gap 11 5-14 MMOL/L Blood Urea Nitrogen 36 H 7-18 MG/DL Creatinine 1.45 H 0.60-1.30 MG/DL Estimat Glomerular Filtration Rate 35 BUN/Creatinine Ratio 25 Glucose Level 111 H 70-105 MG/DL Calcium Level 9.7 8.5-10.1 MG/DL Total Bilirubin 0.4 0.1-1.0 MG/DL Aspartate Amino Transf (AST/SGOT) 16 5-34 U/L Alanine Aminotransferase (ALT/SGPT) 15 0-55 U/L Alkaline Phosphatase 105 40-136 U/L Total Protein 7.4 6.4-8.2 GM/DL Albumin 3.4 3.2-4.5 GM/DL My Orders Orders - ARIEL AVELAR MD Cbc With Automated Diff (01/18/17 08:31) Comprehensive Metabolic Panel (01/18/17 08:31) Erythrocyte Sedimentation Rate (01/18/17 08:31) Ct Sinus Complete Wo (01/18/17 08:31) Vital Signs/I&O Vital Sign - Last 12Hours 01/18/17 08:23 Temp 97.7 Pulse 74 Resp 18 B/P (MAP) 161/86 Pulse Ox 96 O2 Delivery Room Air Blood Pressure Mean: 111 Departure Impression Impression: Primary Impression: chronic cough Disposition: 01 HOME, SELF-CARE Condition: Stable/Unchanged Departure-Patient Inst. Decision time for Depature: 10:15 Referrals: ANAT NGUYEN DO (PCP/Family) Primary Care Physician Patient Instructions: Cough, Adult (DC) Add. Discharge Instructions: All discharge instructions reviewed with patient and/or family. Voiced understanding. Take all 6 of the prednisone at one time. Follow the taper instructions taking the number stated all at one time in the morning each day. Use the nasal spray as directed. Given the duration of your symptoms it may take at least 2 weeks before you are able to determine any improvement. See her provider's if problems. ARIEL AVELAR MD Jan 18, 2017 10:14
[2017-01-18 10:24] VITALS: BP 140/79
== END 2017-01-18 10:18 | disposition home or self-care (01) ==
LOC: EDUNIT# 08:18 → ER 08:20
DX: R05 Cough (principal); I10 Essential (primary) hypertension; Z79.899 Other long term (current) drug therapy
CPT/HCPCS: 36415; 70486; 80053; 85025; 85652

== ENCOUNTER → 2017-02-04 | Outpatient (CLI) | payer MEDICARE, OTHER ==
[~2017-02-04] MED LIST changes: +ALBU90AE; +FLUT16SP22; +MONT10TA24; +OMEP20CA12; +PRD10T
--- NOTE | 2017-02-04 16:41 | Diagnostic Imaging Report ---
EXAMINATION: Right upper extremity venous duplex ultrasound. INDICATION: Right arm pain and tingling. FINDINGS: There is compressibility, venous waveforms, and color Doppler seen within the right internal jugular vein, the right subclavian, the axillary, the basilic, brachial, cephalic, radial, and ulnar veins with no evidence of right upper extremity DVT seen. IMPRESSION: No evidence of right upper extremity DVT seen. Dictated by: Dictated on workstation # [id number]
== END ==
LOC: RAD 15:23
PROVIDERS: ATTEND Internal Medicine
DX: M79.601 Pain in right arm (principal); R59.0 Localized enlarged lymph nodes

== ENCOUNTER 2017-02-08 08:38 | Observation (INO) | payer MEDICARE, OTHER ==
[~2017-02-08] VITALS: Ht 165.1 cm; Wt 99.0 kg
[~2017-02-08 08:38] MED LIST changes: -FLUT16SP22; +FLUT16SP22 NS; -MONT10TA24; +MONT10TA24 PO; -OMEP20CA12; +OMEP20CA12 PO
[2017-02-08] MEDS ORDERED: RT-ALBUINH INH (08:47)
[2017-02-08 09:17] LABS: BASOPHILS # (AUTO) 0.1 10^3/uL (0.0-0.1); BASOPHILS % (AUTO) 1 % (0-10); EOSINOPHILS # (AUTO) 0.1 10^3/uL (0.0-0.3); EOSINOPHILS % (AUTO) 1 % (0-10); LYMPHOCYTES # (AUTO) 1.4 X 10^3 (1.0-4.0); LYMPHOCYTES % (AUTO) 16 % (12-44); MEAN CORPUSCULAR HEMOGLOBIN 30 PG (25-34); MEAN CORPUSCULAR HGB CONC 34 G/DL (32-36); MEAN CORPUSCULAR VOLUME 89 FL (80-99); MEAN PLATELET VOLUME 9.1 FL (7.4-10.4); MONOCYTES # (AUTO) 0.6 X 10^3 (0.0-1.0); MONOCYTES % (AUTO) 7 % (0-12); NEUTROPHILS # (AUTO) 6.5 X 10^3 (1.8-7.8); NEUTROPHILS % (AUTO) 75 % (42-75); PLATELET COUNT 243 10^3/uL (130-400); RED BLOOD COUNT 4.37 10^6/uL (4.35-5.85); WHITE BLOOD COUNT 8.6 10^3/uL (4.3-11.0)
[2017-02-08 09:32] LABS: BILIRUBIN,URINE NEGATIVE (NEGATIVE); KETONES,URINE NEGATIVE (NEGATIVE); LEUKOCYTE ESTERASE ,URINE 2+ (NEGATIVE); NITRITE,URINE NEGATIVE (NEGATIVE); PH,URINE 5 (5-9); PROTEIN,URINE NEGATIVE (NEGATIVE); UROBILINOGEN,URINE NORMAL (NORMAL)
[2017-02-08 09:37] LABS: ALBUMIN 4.2 GM/DL (3.2-4.5); BILIRUBIN,TOTAL 0.6 MG/DL (0.1-1.0); CALCIUM 10.4 MG/DL (8.5-10.1); CREATININE SERUM 1.72 MG/DL (0.60-1.30); POTASSIUM 3.8 MMOL/L (3.6-5.0)
[2017-02-08 09:47] LABS: WBC,URINE 25-50 /HPF
--- NOTE | 2017-02-08 10:12 | ED General ---
General Chief Complaint: Trauma-Non Activation Stated Complaint: WEAKNESS/FALLING-1 MONTH Nursing Triage Note: TO ED PER EMS PATIENT AND REPORT THAT SHE HAS BEEN WEAK FOR 1 WEEK AND NEEDED HELP WITH WALKING. TODAY FELL TODAY AND HURTS ALL OVER. Nursing Sepsis Screen: No Definite Risk Source of Information: Patient, Family Exam Limitations: No Limitations History of Present Illness Time Seen by Provider: 10:07 Initial Comments The patient is a 71-year-old white female known to me from a previous ER visit on 01/18. Her states that for the past week she has been getting increasingly weak. The first of the week he was able to assist her in standing and she could then walk. This morning he helped her to the bathroom to use the commode and she fell off the commode. She has no specific complaints other than yeast in her mouth and tongue. On her previous visit on 01/18 she had just seen Dr. Meneses for pulmonary complaints. She had been started on a prednisone taper and apparently developed he used after that. She has been on nystatin since the . Complaints about the tongue seem to predominate her thought process. Timing/Duration: 1 Week Allergies and Home Medications Allergies Coded Allergies: clindamycin (Verified Allergy, Unknown, SEVERE DIARRHEA, 09/07/14) acetaminophen (Verified Adverse Reaction, Severe, NAUSEA, 09/07/14) codeine (Verified Adverse Reaction, Severe, NAUSEA, 09/07/14) Home Medications Albuterol Sulfate 90 Mcg Aer.pow.ba, (Reported) Albuterol Sulfate 1 Puff Puff, (Reported) Fluticasone Propionate 16 Gm [place].susp, (Reported) Metoprolol Tartrate 50 Mg Tablet, 50 MG PO BID, (Reported) Montelukast Sodium 10 Mg Tablet, (Reported) Omeprazole 20 Mg Capsule., (Reported) [Sertraline Hcl] 50 MG TABLET, 25 MG PO HS, #30 Ref 2 Prescribed by: ANAT BERNABE on 09/09/14 1003 Constitutional: see HPI EENTM: other Respiratory: cough, dyspnea on exertion Gastrointestinal: no symptoms reported Genitourinary: no symptoms reported Musculoskeletal: muscle weakness, other Skin: no symptoms reported Psychiatric/Neurological: Depressed, Weakness Hematologic/Lymphatic: No Symptoms Reported Immunological/Allergic: no symptoms reported Past Hicugdk-Tqgmbs-Pdvdaz Hx Patient Social History Alcohol Use: Denies Use Recreational Drug Use: No Smoking Status: Never a Smoker Recent Foreign Travel: No Contact w/Someone Who Travel: No Recent Infectious Disease Expo: No Immunizations Up To Date Tetanus Booster (TDap): More than 5yrs PED Vaccines UTD: Yes Seasonal Allergies Seasonal Allergies: No Surgeries History of Surgeries: Yes Surgeries: Adenoidectomy, Tonsillectomy Respiratory History of Respiratory Disorde: No Cardiovascular History of Cardiac Disorders: Yes Cardiac Disorders: Hypertension Neurological History of Neurological Disord: No Reproductive System Hx Reproductive Disorders: No Sexually Transmitted Disease: No Female Reproductive Disorders: Denies Gastrointestinal History of Gastrointestinal Di: No Musculoskeletal History of Musculoskeletal Dis: Yes (ARTHRITIS) Endocrine History of Endocrine Disorders: No Cancer History of Cancer: No Psychosocial History of Psychiatric Problem: No Integumentary History of Skin or Integumenta: No Blood Transfusions History of Blood Disorders: No Family Medical History Family Medial History: Arthritis Completed stroke Seizure disorder No Family History of: AIDS Abdominal aortic aneurysm Graves's disease Alcoholism Alzheimer's disease Aphasia Asthma Cancer of mouth Cardiovascular disease Cataracts Colon cancer Congenital disease Congenital heart disease Coronary thrombosis Cystic fibrosis Deafness or hearing loss Dementia Diabetes mellitus Drug abuse Dysphasia Fibrocystic disease of breast Gastroenteritis Glaucoma Headache disorder Hypercholesterolemia Hypertension Infertility Kidney disease Myocardial infarction Neoplasm Not obtainable due to adoption Osteoporosis Parkinson's disease Prostate cancer Psychosocial problem Respiratory disorder Severe allergy Thyroid disease Tuberculosis Visual disorder Physical Exam Vital Signs Vital Sign - Last 12Hours 02/08/17 08:53 Temp 97.6 Pulse 86 Resp 18 B/P (MAP) 168/89 Capillary Refill : Less Than 3 Seconds General Appearance: Mild Distress Eyes: Bilateral Eye Normal Inspection HEENT: Other (white chalky discoloration to time) Neck: Full Range of Motion Respiratory: Chest Non Tender, Lungs Clear, Normal Breath Sounds, No Accessory Muscle Use, No Respiratory Distress Cardiovascular: Regular Rate, Rhythm, No Edema, No Gallop, No JVD, No Murmur, Normal Peripheral Pulses Gastrointestinal: Normal Bowel Sounds, No Organomegaly, No Pulsatile Mass, Non Tender, Soft Back: Normal Inspection, No CVA Tenderness, No Vertebral Tenderness Extremity: Normal Capillary Refill, Normal Inspection, Normal Range of Motion, Non Tender, No Calf Tenderness, No Pedal Edema Skin: Normal Color, Warm/Dry Lymphatic: No Adenopathy Progress/Results/Core Measures Results/Orders Lab Results Laboratory Tests Test 02/08/17 09:05 02/08/17 09:20 Range/Units White Blood Count 8.6 4.3-11.0 10^3/uL Red Blood Count 4.37 4.35-5.85 10^6/uL Hemoglobin 13.2 11.5-16.0 G/DL Hematocrit 39 35-52 % Mean Corpuscular Volume 89 80-99 FL Mean Corpuscular Hemoglobin 30 25-34 PG Mean Corpuscular Hemoglobin Concent 34 32-36 G/DL Red Cell Distribution Width 14.0 10.0-14.5 % Platelet Count 243 130-400 10^3/uL Mean Platelet Volume 9.1 7.4-10.4 FL Neutrophils (%) (Auto) 75 42-75 % Lymphocytes (%) (Auto) 16 12-44 % Monocytes (%) (Auto) 7 0-12 % Eosinophils (%) (Auto) 1 0-10 % Basophils (%) (Auto) 1 0-10 % Neutrophils # (Auto) 6.5 1.8-7.8 X 10^3 Lymphocytes # (Auto) 1.4 1.0-4.0 X 10^3 Monocytes # (Auto) 0.6 0.0-1.0 X 10^3 Eosinophils # (Auto) 0.1 0.0-0.3 10^3/uL Basophils # (Auto) 0.1 0.0-0.1 10^3/uL Sodium Level 141 135-145 MMOL/L Potassium Level 3.8 3.6-5.0 MMOL/L Chloride Level 104 98-107 MMOL/L Carbon Dioxide Level 25 21-32 MMOL/L Anion Gap 12 5-14 MMOL/L Blood Urea Nitrogen 28 H 7-18 MG/DL Creatinine 1.72 H 0.60-1.30 MG/DL Estimat Glomerular Filtration Rate 29 BUN/Creatinine Ratio 16 Glucose Level 113 H 70-105 MG/DL Calcium Level 10.4 H 8.5-10.1 MG/DL Total Bilirubin 0.6 0.1-1.0 MG/DL Aspartate Amino Transf (AST/SGOT) 22 5-34 U/L Alanine Aminotransferase (ALT/SGPT) 20 0-55 U/L Alkaline Phosphatase 93 40-136 U/L Total Protein 8.0 6.4-8.2 GM/DL Albumin 4.2 3.2-4.5 GM/DL Urine Color YELLOW Urine Clarity CLEAR Urine pH 5 5-9 Urine Specific [place] 1.015 L 1.016-1.022 Urine Protein NEGATIVE NEGATIVE Urine Glucose (UA) NEGATIVE NEGATIVE Urine Ketones NEGATIVE NEGATIVE Urine Nitrite NEGATIVE NEGATIVE Urine Bilirubin NEGATIVE NEGATIVE Urine Urobilinogen NORMAL NORMAL MG/DL Urine Leukocyte Esterase 2+ H NEGATIVE Urine RBC (Auto) NEGATIVE NEGATIVE Urine RBC NONE /HPF Urine WBC 25-50 H /HPF Urine Squamous Epithelial Cells 2-5 /HPF Urine Crystals NONE /LPF Urine Bacteria FEW H /HPF Urine Casts NONE /LPF Urine Mucus NEGATIVE /LPF Urine Culture Indicated YES My Orders Orders - ARIEL AVELAR MD Cbc With Automated Diff (02/08/17 08:45) Comprehensive Metabolic Panel (02/08/17 08:45) Ua Culture If Indicated (02/08/17 08:45) Urine Culture (02/08/17 09:20) Blood Culture (02/08/17 10:02) Ceftriaxone Injection (Rocephin Injectio (02/08/17 10:15) Vital Signs/I&O Vital Sign - Last 12Hours 02/08/17 08:53 Temp 97.6 Pulse 86 Resp 18 B/P (MAP) 168/89 Blood Pressure Mean: 115 Departure Communication (Admissions) Progress Notes [address] Morrissey of the hospitalist service. The patient will be admitted to observation status Impression Impression: Primary Impression: urinary tract infection Additional Impression: Generalized weakness Disposition: ADMITTED INPATIENT Condition: Stable/Unchanged Admissions Decision to Admit Reason: Admit from ER (General) Decision to Admit/Date: Feb 08, 2017 Time/Decision to Admit Time: 10:15 Departure-Patient Inst. Referrals: ANAT BERNABE DO (PCP/Family) Primary Care Physician ARIEL AVELAR MD Feb 08, 2017 10:12
[2017-02-08] MEDS ORDERED: cefTRIAXone INJECTION 1,000 MG in NS (IVPB) 50 ML IV ONE (10:15)
[2017-02-08 10:45] VITALS: BP 147/73
[2017-02-08] MEDS ORDERED: FLUT1BLS INH (10:58)
[2017-02-08] MEDS ORDERED: TRIA1TAB3 PO (10:59)
[2017-02-08] MEDS ORDERED: CETI10TA17 PO (11:08)
[2017-02-08] MEDS ORDERED: NYST1000 PO (11:08)
[2017-02-08] MEDS ORDERED: METO50TA2 PO (11:10)
[2017-02-08] MEDS ORDERED: MULT-1029 PO (11:13)
[2017-02-08] MEDS ORDERED: NAPR220T66 PO (11:14)
[2017-02-08] MEDS ORDERED: CATHETER FLUSH 10 ML SYR IV PRN (11:15)
[2017-02-08] MEDS ORDERED: RT-ALBUTEROL SULF 2.5 MG/3 ML PRE-MIX VIAL IH PRN (11:15)
[2017-02-08] MEDS: NS IV 1000 ML 1,000 ML IV SCH ×2 (11:28→21:37)
[2017-02-08] MEDS: fluCOnazole (DIFLUCAN) 100 MG TAB PO SCH (11:28)
[2017-02-08] MEDS ORDERED: RT-ALBUTEROL HFA (VENTOLIN) PER PUFF IH PRN (11:45)
[2017-02-08 12:00] VITALS: BP 150/67
[2017-02-08] MEDS ORDERED: PANTOPRAZOLE 40 MG (PROTONIX) TAB PO NR (12:00)
--- NOTE | 2017-02-08 12:12 | History & Physical-Hospitalist ---
HPI History of Present Illness: HPI/Chief Complaint CC: Dehydration with UTI HPI: This is a 71-year-old white female clinic patient of Dr. Nguyen that has had issues for the past couple of months mostly related to a chronic cough that ultimately has improved after completing a Z-Giuliano but began feeling badly not able to eat or drink for the past couple of days came to the ER due to overall weakness can't really walk much due to weakness and found to have a UTI and dehydration with acute renal failure 1.7. At this current time she reports pain in her back and knees from arthritis and she reports that overall she is feeling very badly and has for years. At this current time we have placed her in observation status I told the to go home and get her meds to be able to take her home meds so not to be charged in observation status and will continue IV fluid gently and resume normal activities and hopefully follow up on your culture and discharge sometime this weekend. 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) Alcohol Use: Denies Use Recreational Drug Use: No Smoking Status: Never a Smoker Recent Foreign Travel: No Contact w/other who traveled: No Recent Infectious Disease Expo: No Immunizations Up To Date Tetanus Booster (TDap): More than 5yrs Pediatric: Yes Seasonal Allergies Seasonal Allergies: No Surgeries Yes Adenoidectomy, Tonsillectomy Respiratory Yes Asthma Cardiovascular Yes Hypertension Neurological No Reproductive System Hx Reproductive Disorders: No Sexually Transmitted Disease: No Female Reproductive Disorders: Denies Gastrointestinal Yes Gastroesophageal Reflux Musculoskeletal Yes (ARTHRITIS) Arthritis Endocrine History of Endocrine Disorders: No Cancer No Psychosocial History of Psychiatric Problem: No Integumentary History of Skin or Integumenta: No Blood Transfusions History of Blood Disorders: No Family Medical History Family Hx: Arthritis Completed stroke Seizure disorder No Family History of: AIDS Abdominal aortic aneurysm Clint's disease Alcoholism Alzheimer's disease Aphasia Asthma Cancer of mouth Cardiovascular disease Cataracts Colon cancer Congenital disease Congenital heart disease Coronary thrombosis Cystic fibrosis Deafness or hearing loss Dementia Diabetes mellitus Drug abuse Dysphasia Fibrocystic disease of breast Gastroenteritis Glaucoma Headache disorder Hypercholesterolemia Hypertension Infertility Kidney disease Myocardial infarction Neoplasm Not obtainable due to adoption Osteoporosis Parkinson's disease Prostate cancer Psychosocial problem Respiratory disorder Severe allergy Thyroid disease Tuberculosis Visual disorder Review of Systems Constitutional: see HPI, dizziness, malaise, weakness EENTM: no symptoms reported Respiratory: no symptoms reported Cardiovascular: no symptoms reported Gastrointestinal: loss of appetite, nausea Genitourinary: decreased output, frequency, hematuria Musculoskeletal: no symptoms reported Skin: no symptoms reported Psychiatric/Neurological: No Symptoms Reported All Other Systems Reviewed Negative Unless Noted: Yes Physical Exam Physical Exam Vital Signs Vital Sign - Last 12Hours 02/08/17 02/08/17 08:53 10:40 Temp 97.6 Pulse 86 Resp 18 B/P (MAP) 168/89 Pulse Ox 97 O2 Delivery Room Air Capillary Refill : Less Than 3 Seconds General Appearance: No Apparent Distress, WD/WN, Chronically ill, Obese Eyes: Bilateral Eye Normal Inspection, Bilateral Eye PERRL HEENT: PERRL/EOMI, Normal ENT Inspection, Pharynx Normal Neck: Full Range of Motion, Normal Inspection, Non Tender, Supple, Carotid Bruit Respiratory: Chest Non Tender, Lungs Clear, Normal Breath Sounds, No Accessory Muscle Use, No Respiratory Distress Cardiovascular: Regular Rate, Rhythm, No Edema, No Gallop, No JVD, No Murmur, Normal Peripheral Pulses Gastrointestinal: Normal Bowel Sounds, No Organomegaly, No Pulsatile Mass, Non Tender, Soft Back: Normal Inspection, No CVA Tenderness, No Vertebral Tenderness Extremity: Normal Capillary Refill, Normal Inspection, Normal Range of Motion, Non Tender, No Calf Tenderness, No Pedal Edema Neurologic/Psychiatric: Alert, Oriented x3, No Motor/Sensory Deficits, Depressed Affect Skin: Normal Color, Warm/Dry Lymphatic: No Adenopathy Results Results/Procedures Lab Laboratory Tests 02/08/17 09:05 Assessment/Plan Admission Diagnosis Assessment: Severe weakness due to dehydration with acute renal failure and UTI Hypertension but holding Dyazide due to diuretic component in acute renal failure and dehydration status GERD Recent chronic cough resolved with Z-Giuliano OA Assessment and Plan Plan: Gentle IV fluids Home meds except for Dyazide Check labs in a.m. Out of bed as tolerated Advance diet GRACY MORRISSEY DO Feb 08, 2017 12:12
[2017-02-08] MEDS ORDERED: PATIENT MAY USE OWN MEDS, ALL MC SCH (12:15)
[2017-02-08] MEDS: NYSTATIN ORAL SUSP 5 ML UDC PO SCH ×4 (12:33→20:55)
--- NOTE | 2017-02-08 14:33 | Physical Therapy Evaluation ---
PT Evaluation-General Medical Diagnosis Admission Date Feb 08, 2017 at 10:26 Medical Diagnosis: UTI Onset Date: Feb 08, 2017 Therapy Diagnosis Therapy Diagnosis: impaired mobility, strength, endurance Height/Weight Height (Feet): 5 Height (Inches): 5.00 Weight (Pounds): 218 Weight (Ounces): 4.0 Precautions Precautions/Isolations: Fall Prevention, Standard Precautions Referral Physician: Gracy Morrissey DO Reason for Referral: Evaluation/Treatment Medical History Pertinent Medical History: Arthritis, GERD, HTN Additional Medical History asthma, surg (adenoidectomy, tonsillectomy) Current History went to ER with UTI, dehydration, and acute renal failure Reviewed History: Yes Social History Home: Single Level Current Living Status: Spouse Entry Into Home: Ramp Prior/Core FIM Prior Level of Function Functional [place] Measure 0=Not Assessed/NA 4=Minimal Assistance 1=Total Assistance 5=Supervision or Setup 2=Maximal Assistance 6=Modified [place] 3=Moderate Assistance 7=Complete [place] Bed Mobility: 7 Transfers (B,C,W/C) (FIM): 7 Gait: 7 PT Evaluation-Current Subjective Patient in bed pre tx, agrees to PT, no complaints of pain other than pain from her UTI. Pt/Family Goals "to get better" Objective Patient Orientation: Person, Place, Situation Attachments: IV ROM/Strength ROM Lower Extremities WNL Strength Lower Extremities right lower extremity (hip flexion 3/5, knee flexion 4/5, knee extension 4/5, dorsiflexion 4+/5), left lower extremity (hip flexion 3/5, knee flexion 4/5, knee extension 4/5, dorsiflexion 4+/5) Neuromuscular (Tone, Coordination, Reflexes) WNL Sensory Vision: Wears Glasses Hearing: Functional Sensation Right Lower Extremit: Intact Sensation Left Lower Extremity: Intact Sensation Lower Extremities Patient states she does have some impaired sensation in her feet due to neuropathy. Transfers Functional [place] Measure 0=Not Assessed/NA 4=Minimal Assistance 1=Total Assistance 5=Supervision or Setup 2=Maximal Assistance 6=Modified [place] 3=Moderate Assistance 7=Complete [place] Transfers (B, C, W/C) (FIM): 5 Scootin Rollin Supine to/from Sit: 5 Sit to/from Stand: 5 cues for hand placement and safety Gait Mode of Locomotion: Walk Anticipated Mode of Locomotion: Walk Gait (FIM): 1 Distance: 30' Gait Level of Assist: 5 Gait Persons Needed: 1 Gait Assistive Device: FWW Comments/Gait Description steady, no LOB Balance Sitting Static: Normal Sitting Dynamic: Normal Standing Static: Good Standing Dynamic: Good Treatment seated exercises x15 (AP, LAQ, hip flexion) Assessment/Needs Patient has impaired mobility, strength, endurance associated with UTI and dehydration. Rehab Potential: Fair PT Short Term Goals Short Term Goals Time Frame: Feb 15, 2017 Transfers (B,C,W/C) (FIM): 6 Gait (FIM): 6 Gait Distance Comment: 150' Gait Level of Assist: 6 Gait Assistive Device: FWW PT Plan Problem List Problem List: Activity Tolerance, Functional Strength, Safety, Balance, Gait, Transfer, Bed Mobility Treatment/Plan Treatment Plan: Continue Plan of Care Treatment Plan: Bed Mobility, Education, Functional Activity Stephani, Functional Strength, Gait, Safety, Therapeutic Exercise, Transfers Treatment Duration: Feb 15, 2017 Frequency: 6 times per week Estimated Hrs Per Day: .25 hour per day (15-30') Patient and/or Family Agrees t: Yes Safety Risks/Education Patient Education: Gait Training, Transfer Techniques, Correct Positioning, Safety Issues Teaching Recipient: Patient Teaching Methods: Demonstration, Discussion Response to Teaching: Reinforcement Needed Discharge Recommendations Plan Patient will perform bed mobility and transfer training, balance and endurance training, functional strengthening, stair training, gait training, and education , to improve functional mobility and independence at home. Therapy D/C Recommendations: Home w/ Family Support Time/GCodes Time In: 1410 Time Out: 1427 Total Billed Treatment Time: 17 Total Billed Treatment 1 visit EVBryon 17' JAMIL OLSON PT Feb 08, 2017 14:32
[2017-02-08] MEDS ORDERED: INFLUENZA TRIvalent 2017-2018 0.5 ML/45 MCG SYR IM ONE (14:45)
[2017-02-08 16:18] VITALS: BP 142/68
--- NOTE | 2017-02-08 17:16 | Occupational Therapy Eval ---
OT Evaluation-General/PLF Medical Diagnosis Admission Date Feb 08, 2017 at 10:26 Medical Diagnosis: UTI Onset Date: Feb 08, 2017 Therapy Diagnosis Therapy Diagnosis: decr activity tolerance, decr self care, weakness Height/Weight Height (Feet): 5 Height (Inches): 5.00 Weight (Pounds): 218 Weight (Ounces): 4.0 Precautions Precautions/Isolations: Standard Precautions Referral Physician: Gracy Morrissey DO Referral Reason: Evaluation/Treatment Medical History Pertinent Medical History: Arthritis, GERD, HTN, Neuropathy (feet ) Additional Medical History Pt reported neuropathy in feet. Also reported knees "need fixed" and back and neck pain "need fixed". Asthma. Sinusitis Current History Admitted with UTI and weakness Reviewed History: Yes Social History Home: Single Level Current Living Status: Spouse Entry Into Home: Ramp ADL-Prior Level of Function ADL PLOF Comments Pt reported that she has been able to manage her basic self care needs prior to admission. She still drives. Drive Self: Yes OT Current Status Subjective Pt seen in room, up in bed, agreeable to OT. pt reported pain "all over" and did not rate or describe it. Appearance Alert, cooperative Mental Status/Objective Patient Orientation: Person, Place, Time Current Glasses/Contacts: Yes Hearing Aids: No Dentures/Partials: No Hand Dominance: Right Upper Extremity ROM grossly WFL bilat Upper Extremity Strength grossly 4/5 bilat ADL-Treatment ADL-Current Pt was able to move from supine to sit with SBA. Sit to stand SBA. Pt walked to bathroom with CGA, FWW, got on and off toilet with SBA and grab bar, walked back to bed SBA, FWW and got into bed with SBA. help to manage IV pole Functional [place] Measure 0=Not Assessed/NA 4=Minimal Assistance 1=Total Assistance 5=Supervision or Setup 2=Maximal Assistance 6=Modified [place] 3=Moderate Assistance 7=Complete IndependenceIRFPAI Quality Coding Scale 6 Independent with activity with or without an assistive device 5 Patient requires set up or clean up by helper. Patient completes activity by themselves 4 Supervision or touching assist (CGA). [place] provide cues , steadying assist 3 The helper provides less than half the effort to complete the activity 2 The helper provides more than half the effort to complete the activity 1 Dependent. The helper does all the effort to complete an activity 7 Patient refused to complete or attempt activity 9 The patient did not perform the activity before the current illness or injury 88 Not attempted due to Medical conditions or safety concerns Toileting (FIM): 5 Toilet/Commode Transfer (FIM): 5 Pt left up in bed, 4 rails up, all needs met. 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 2=Patient will verbalize/demonstrate understanding of assistive devices/ modifications for ADL. 3=Patient will improve strength/tolerance for activity to enable patient to perform ADL's. OT Education/Plan Problem List/Assessment Assessment: Decreased Activ Tolerance, Decreased UE Strength, Impaired Self- Care Skills Pt would benefit from skilled OT to increase her independence in basic self care to allow her to safely return home to live with . Discharge Recommendations Plan/Recommendations: Continue POC Treatment Plan/Plan of Care Treatment,Training & Education: Yes Patient would benefit from OT for education, treatment and training to promote independence in ADL's, mobility, safety and/or upper extremity function for ADL' s. Plan of Care: ADL Retraining, Functional Mobility, UE Funct Exercise/Act Treatment Duration: Feb 15, 2017 Frequency: 5 times per week Estimated Hrs Per Day: .25 hour per day Agreement: Yes Rehab Potential: Good Time/GCodes Start Time: 13:20 Stop Time: 13:50 Total Time Billed (hr/min): 30 Billed Treatment Time visit, 15 minutes evaluation, 15 minutes ADL RAVI TREJO OT Feb 08, 2017 17:16
[2017-02-08] MEDS: OMEPRAZOLE 20 MG (PriLOSEC) CAP NON-FORMULARY PO SCH (17:52)
[2017-02-08 20:04] VITALS: BP 148/67
[2017-02-08] MEDS: meTOprolol TARTRATE 50 MG (LOPRESSOR) TAB PO SCH (20:42)
[2017-02-08] MEDS ORDERED: LORATADINE (CLARITIN) 10 MG TAB PO SCH (21:00)
[2017-02-08] MEDS ORDERED: NAPROXEN 250 MG (NAPROSYN) TABLET PO SCH (21:00)
[2017-02-08] MEDS ORDERED: meTOprolol TARTRATE 50 MG (LOPRESSOR) TAB PO SCH (21:00)
[2017-02-08] MEDS ORDERED: ceTIRizine 10 MG (ZyrTEC) TAB NON-FORMULARY PO SCH (21:00)
[2017-02-08] MEDS ORDERED: MONTELUKAST 10 MG (SINGULAIR) TAB PO SCH (21:00)
[2017-02-08] MEDS ORDERED: PANTOPRAZOLE 20 MG TABLET (PROTONIX) PO SCH (21:00)
[2017-02-09] VITALS: BP 123/69
[2017-02-09 04:00] VITALS: BP 146/70
[2017-02-09] MEDS: NS IV 1000 ML 1,000 ML IV SCH (06:17)
[2017-02-09] MEDS: OMEPRAZOLE 20 MG (PriLOSEC) CAP NON-FORMULARY PO SCH (06:19)
[2017-02-09 06:34] LABS: BASOPHILS % (AUTO) 1 % (0-10); EOSINOPHILS # (AUTO) 0.1 10^3/uL (0.0-0.3); EOSINOPHILS % (AUTO) 2 % (0-10); LYMPHOCYTES # (AUTO) 1.6 X 10^3 (1.0-4.0); LYMPHOCYTES % (AUTO) 25 % (12-44); MEAN CORPUSCULAR HEMOGLOBIN 30 PG (25-34); MEAN CORPUSCULAR HGB CONC 33 G/DL (32-36); MEAN CORPUSCULAR VOLUME 90 FL (80-99); MEAN PLATELET VOLUME 9.5 FL (7.4-10.4); MONOCYTES # (AUTO) 0.6 X 10^3 (0.0-1.0); MONOCYTES % (AUTO) 10 % (0-12); NEUTROPHILS % (AUTO) 63 % (42-75); PLATELET COUNT 218 10^3/uL (130-400); RED BLOOD COUNT 3.54 10^6/uL (4.35-5.85); RED CELL DISTRIBUTION WIDTH 14.2 % (10.0-14.5); WHITE BLOOD COUNT 6.4 10^3/uL (4.3-11.0)
[2017-02-09 06:55] LABS: ALBUMIN 3.2 GM/DL (3.2-4.5); BILIRUBIN,TOTAL 0.4 MG/DL (0.1-1.0); CALCIUM 8.7 MG/DL (8.5-10.1); CREATININE SERUM 1.36 MG/DL (0.60-1.30); POTASSIUM 3.9 MMOL/L (3.6-5.0)
[2017-02-09] MEDS ORDERED: MULTIVIT W/MINERALS TAB (THERAGRAN M) PO SCH (07:00)
[2017-02-09 08:00] VITALS: BP 146/83
[2017-02-09] MEDS: fluCOnazole (DIFLUCAN) 100 MG TAB PO SCH (08:22)
[2017-02-09] MEDS: NYSTATIN ORAL SUSP 5 ML UDC PO SCH (08:23)
[2017-02-09] MEDS: meTOprolol TARTRATE 50 MG (LOPRESSOR) TAB PO SCH (08:24)
[2017-02-09] MEDS ORDERED: FLUTICASONE NASAL SPRAY (FLONASE) 16 GM BTL NS SCH ×2 (09:00)
[2017-02-09] MEDS ORDERED: cefTRIAXone 1 GM/NS 50 ML IVPB IV SCH ×2 (09:00)
[2017-02-09 12:00] VITALS: BP 149/84
[2017-02-09] MEDS ORDERED: AMOX-355 PO (12:52)
--- NOTE | 2017-02-09 12:55 | Discharge Summary-Hospitalist ---
Diagnosis/Chief Complaint Date of Admission Feb 08, 2017 at 10:26 Date of Discharge Discharge Date: Feb 09, 2017 Admission Diagnosis Assessment: Severe weakness due to dehydration with acute renal failure and UTI Hypertension but holding Dyazide due to diuretic component in acute renal failure and dehydration status GERD Recent chronic cough resolved with Z-Giuliano OA Discharge Diagnosis Patient doing much better but she doesn't think so Needs walker so ordered prior to discharge Overall very pessimistic about her overall status but tried to encourage her and give her positive feedback in room and agrees with discharge We'll send antibiotic into [facility] and Dr. Nguyen will need to follow up on urine culture next week to be sure Augmentin is adequate coverage No fever, vital signs stable, pleasant, flat affect, delayed responses when spoken to Regular rate and rhythm, clear to auscultation bilaterally Walking back from bathroom with walker unassisted Laboratory Tests 02/09/17 05:59 Assessment: Severe weakness due to dehydration with acute renal failure and UTI Hypertension but holding Dyazide due to diuretic component in acute renal failure and dehydration status GERD Recent chronic cough resolved with Z-Giuliano OA Plan: DC home on Po abx Walker ordered Discharge Summary Discharge Physical Examination Allergies: Coded Allergies: clindamycin (Verified Allergy, Unknown, SEVERE DIARRHEA, 02/08/17) Vitals & I&Os Vital Signs Date Time Temp Pulse Resp B/P (MAP) Pulse Ox O2 Delivery O2 Flow Rate FiO2 02/09/17 08:00 97.5 72 18 146/83 97 02/09/17 04:00 Room Air Hospital Course Labs (last 24 hrs) Laboratory Tests 02/09/17 05:59: White Blood Count 6.4, Red Blood Count 3.54L, Hemoglobin 10.7L, Hematocrit 32L, Mean Corpuscular Volume 90, Mean Corpuscular Hemoglobin 30, Mean Corpuscular Hemoglobin Concent 33, Red Cell Distribution Width 14.2, Platelet Count 218, Mean Platelet Volume 9.5, Neutrophils (%) (Auto) 63, Lymphocytes (%) (Auto) 25, Monocytes (%) (Auto) 10, Eosinophils (%) (Auto) 2, Basophils (%) (Auto) 1, Neutrophils # (Auto) 4.0, Lymphocytes # (Auto) 1.6, Monocytes # (Auto) 0.6, Eosinophils # (Auto) 0.1, Basophils # (Auto) 0.0, Sodium Level 138, Potassium Level 3.9, Chloride Level 105, Carbon Dioxide Level 26, Anion Gap 7, Blood Urea Nitrogen 19H, Creatinine 1.36H, Estimat Glomerular Filtration Rate 38, BUN/ Creatinine Ratio 14, Glucose Level 98, Calcium Level 8.7, Total Bilirubin 0.4, Aspartate Amino Transf (AST/SGOT) 18, Alanine Aminotransferase (ALT/SGPT) 16, Alkaline Phosphatase 71, Total Protein 6.0L, Albumin 3.2 Microbiology 02/08/17 Urine Culture - Preliminary, Resulted Gram Negative Satnam Pending Labs Laboratory Tests 02/09/17 05:59: White Blood Count 6.4, Red Blood Count 3.54, Hemoglobin 10.7, Hematocrit 32, Mean Corpuscular Volume 90, Mean Corpuscular Hemoglobin 30, Mean Corpuscular Hemoglobin Concent 33, Red Cell Distribution Width 14.2, Platelet Count 218, Mean Platelet Volume 9.5, Neutrophils (%) (Auto) 63, Lymphocytes (%) (Auto) 25, Monocytes (%) (Auto) 10, Eosinophils (%) (Auto) 2, Basophils (%) (Auto) 1, Neutrophils # (Auto) 4.0, Lymphocytes # (Auto) 1.6, Monocytes # (Auto) 0.6, Eosinophils # (Auto) 0.1, Basophils # (Auto) 0.0, Sodium Level 138, Potassium Level 3.9, Chloride Level 105, Carbon Dioxide Level 26, Anion Gap 7, Blood Urea Nitrogen 19, Creatinine 1.36, Estimat Glomerular Filtration Rate 38, BUN/ Creatinine Ratio 14, Glucose Level 98, Calcium Level 8.7, Total Bilirubin 0.4, Aspartate Amino Transf (AST/SGOT) 18, Alanine Aminotransferase (ALT/SGPT) 16, Alkaline Phosphatase 71, Total Protein 6.0, Albumin 3.2 Discharge Home Medications: Active Scripts Active Augmentin 500-125 Tablet (Amoxicillin/Potassium Clav) 1 Each Tablet 1 Each PO BID Reported Aleve (Naproxen Sodium) 220 Mg Tablet 440 Mg PO HS TAKES 2 (220MG) TABLETS Centrum Silver Tablet (Multivit-Min/FA/Lycopene/Lut) 1 Each Tablet 1 Tab PO DAILY Metoprolol Tartrate 50 Mg Tablet 50 Mg PO BID Cetirizine HCl 10 Mg Tablet 10 Mg PO HS Nystatin 100,000 Unit/1 Ml Oral.susp 5 Mm PO QID 7 Days SWISH AND SPIT X 7 DAYS FILLED --17 Triamterene-Hctz 37.5-25 mg Tb (Triamterene/Hydrochlorothiazid) 1 Each Tablet 2 Tab PO DAILY Proair Hfa (Albuterol Sulfate) 1 Puff Puff 2 Puff INH QID PRN Omeprazole 20 Mg Capsule.dr 20 Mg PO BID Montelukast Sodium 10 Mg Tablet 10 Mg PO HS Fluticasone Propionate 16 Gm Cataldo.susp 1 Cataldo NS DAILY Instructions to patient/family Please see electronic discharge instructions given to patient. Clinical Quality Measures DVT/VTE Risk/Contraindication: Risk Factor Score Per Nursin RFS Level Per Nursing on Admit: 4+=Very High AGUSTINA OROZCO DO Feb 09, 2017 12:55
[2017-02-09 13:20] VITALS: BP 148/88
== END 2017-02-09 12:52 | disposition home or self-care (01) ==
LOC: EDUNIT# 08:38 → ER 08:40 → UNDOADMOB 10:26 → 4TH 10:26 → UNDODISOB 02-09 13:20
PROVIDERS: ADMIT Internal Medicine; ATTEND Internal Medicine
DX: E86.0 Dehydration (principal); N39.0 Urinary tract infection, site not specified; N17.9 Acute kidney failure, unspecified; R53.83 Other fatigue; K21.9 Gastro-esophageal reflux disease without esophagitis; I10 Essential (primary) hypertension; M17.0 Bilateral primary osteoarthritis of knee; M47.819 Spondylosis without myelopathy or radiculopathy, site unspecified; Z79.899 Other long term (current) drug therapy
CPT/HCPCS: 36415; 80053; 81000; 83605; 85025; 87040; 87077; 87088; 87186; 96365; G0378

== ENCOUNTER → 2018-03-10 | Outpatient (CLI) | payer MEDICARE, OTHER ==
[~2018-03-10] MED LIST changes: +AMOX-355 PO; +CETI10TA17 PO; +FLUT1BLS INH; +METO50TA15 PO; +MULT-1029 PO; +NAPR220T66 PO; +NYST1000 PO; +RT-ALBUINH INH; +TRIA1TAB3 PO
--- NOTE | 2018-03-11 10:19 | Diagnostic Imaging Report ---
EXAMINATION: Ultrasound of the left breast limited. INDICATION: Abnormal mammogram The diagnostic mammogram performed earlier today noted dystrophic calcifications and increased scar formation in the upper-outer quadrant of the left breast. These findings were felt to be most likely related to fat necrosis and scar formation from the patient's prior biopsy. On this exam there is an avascular hypoechoic area with shadowing in the 2 o'clock position of the breast roughly 8 CM from the nipple. This area measures 1.6 x 1.3 x 1.1 CM. I suspect that this corresponds to the calcifications and scar formation seen on the mammogram. I do suspect that this is a benign process. Even so, as the scar formation has increased since the previous exam in 2016, it may prove worthwhile to have a short-term (6 month) followup mammogram of the left breast for continued evaluation. During the course of exam a few small (3 mm) cysts were also seen. These have a benign appearance. IMPRESSION: The avascular hypoechoic shadowing lesion in the 2 o'clock position of the breast is more likely due to scar formation and not to neoplasm. Recommendations as above. ACR BI-RADS Category 3: Probably benign findings. Dictated by: Dictated on workstation # [id number]
--- NOTE | 2018-03-11 10:58 | Diagnostic Imaging Report ---
Digital mammogram. Bilateral diagnostic with 3-D tomosynthesis. The study was compared to prior exams of 02/20/2016, 07/08/2013 and 02/06/2012. At this time there are no current complaints. The previous screening mammogram 02/20/2016 noted new calcifications in the upper-outer quadrant of the left breast. The diagnostic mammogram performed on 03/05/2016 suggested dystrophic type calcifications related to a prior biopsy. A six-month followup mammogram was recommended for continued evaluation. However the followup study was not performed. On this exam the calcifications in question have increased in number. These do have the typical appearance for fat necrosis although the scar formation in this area is somewhat greater than on the prior exam as well. I would recommend ultrasound be performed for further evaluation of this area. The fibroglandular tissue in both breasts is heterogeneously dense. This does limit the sensitivity of this exam. The calcifications in the retroareolar region of the right breast seen previously are again evident. The stereotactic clip in the right breast noted previously is also unchanged when compared to the prior exam. There is no primary or secondary sign of malignancy noted. Impression: 1. There has been increase in the coarse calcifications in the upper-outer quadrant of the left breast since the prior exam. These calcifications are most likely related to fat necrosis. There does seem to be greater scar formation in this area as well. Ultrasound would be recommended for further study. 2. The overall appearance of the breasts is otherwise stable. There is no sign of malignancy. ACR BI-RADS Category 0: Incomplete. (Needs additional imaging evaluation). Result letter will be mailed to the patient. Note: At least 10% of breast cancer is not imaged by mammography. Dictated by: Dictated on workstation # [id number]
== END ==
LOC: RAD 12:59
PROVIDERS: ATTEND Internal Medicine
DX: N64.89 Other specified disorders of breast (principal); R92.1 Mammographic calcification found on diagnostic imaging of breast
CPT/HCPCS: 76642; 77066

== ENCOUNTER 2018-11-15 17:30 | Emergency (ER) | payer MEDICARE, OTHER ==
[~2018-11-15] VITALS: Ht 165.1 cm; Wt 104.3 kg
[2018-11-15] MEDS ORDERED: TETANUS,DIPTH,PERTUSS P/F (BOOSTRIX) 0.5 ML VIAL IM ONE (18:30)
--- NOTE | 2018-11-15 19:00 | NUR ---
assumed care of this patient at this time. patient is at ct right now introduced to self to patient .
--- NOTE | 2018-11-15 19:00 | NUR ---
was reported to this rn by steve that she was unable to obtain iv access
--- NOTE | 2018-11-15 19:06 | Diagnostic Imaging Report ---
PROCEDURE: CT head, face, and cervical spine without contrast. TECHNIQUE: Multiple contiguous axial images were obtained through the head, neck, and facial bones without the use of intravenous contrast. Sagittal and coronal reformations through the cervical spine and facial bones were also performed. Auto Exposure Controls were utilized during the CT exam to meet ALARA standards for radiation dose reduction. INDICATION: Fall striking the head, pain Head CT: There is no hemorrhage, hydrocephalus, edema, mass or mass effect. Facial CT: No facial fracture or hemo-sinus. CT cervical spine: Alignment within normal limits. No fracture. No paravertebral hematoma. IMPRESSION: No acute or posttraumatic sequelae identified at CT head, facial bones, and cervical spine. Dictated by: Dictated on workstation # [id number]
--- NOTE | 2018-11-15 19:09 | Diagnostic Imaging Report ---
PROCEDURE: CT thoracic and lumbar spine without contrast. TECHNIQUE: Multiple contiguous axial images were obtained through the thoracic and lumbar spine without the use of intravenous contrast. Sagittal and coronal reformations were then performed. INDICATION: Fall, back pain Reconstruction views revealed thoracolumbar vertebral body heights to be within normal limits. There was no acute or suspicious appearing endplate irregularity. There is no evidence for paravertebral hematoma. The partially visualized posterior rib segments bilaterally appeared intact. No demonstrated pleural fluid. No appreciable abdominal pelvic intra-or retroperitoneal hemorrhage. There are degenerative changes throughout the spine greatest in the lumbar where there is grade 1 degenerative retrolisthesis L2 on L3 and L1 on L2 with multilevel disc bulge, facet arthrosis and thickening of the ligamenta flava. Findings result in moderate severity of canal stenosis at L3-L4 and severe canal stenosis at L4-L5 but there is also substantial narrowing of the bilateral lateral recesses but only mild foraminal stenosis. IMPRESSION: No thoracolumbar spinal fracture demonstrated. Lumbar spondylosis with multilevel stenoses on a chronic basis noted. Dictated by: Dictated on workstation # [id number]
--- OUTSIDE RECORDS SUMMARY | 2018-11-15 19:30 | XMS REPORT | Continuity of Care Document ---
Author Organization Unknown Address Unknown Phone Unavailable Allergies Active Description Code Type Severity Reaction Onset Reported/Identified Relationship to Patient Clinical Status Yes No Known Drug Allergies [id number] Drug Allergy Unknown N/A 07/17/2011 Yes acetaminophen [id number] Drug Allergy Severe NAUSEA 09/07/2014 Yes codeine [id number] Drug Allergy Severe NAUSEA 09/07/2014 Yes clindamycin [id number] Drug Allergy Unknown SEVERE DIARRHEA 02/08/2017 Medications There is no data. Problems Date Dx Coded Attending Type Code [...] Ot 923.00 CONTUSION SHOULDER REG 02/12/2014 ANAT RGIFFIN DO Ot 924.11 CONTUSION OF KNEE 02/12/2014 ANAT GRIFFIN DO Ot 959.09 INJURY OF FACE AND NECK 02/12/2014 ANAT GRIFFIN DO Ot E000.8 OTHER EXTERNAL CAUSE STATUS 02/12/2014 ELIAS ANAT KIMBALL Ot E849.0 ACCIDENT IN HOME 02/12/2014 ELIAS ANAT KIMBALL Ot E888.1 FALL STRIKING OBJECT NEC 04/21/2014 [...] BERNABE DO Ot E928.9 04/21/2014 KELLI BERNABE CHIEF PILOT Ot 729.5 04/21/2014 KELLI BERNABE CHIEF PILOT Ot 729.81 04/21/2014 ANAT BERNABE DO Ot [...] 08/23/2014 ANAT BERNABE DO Ot V76.12 08/23/2014 ANTA BERNABE DO Ot 722.4 08/23/2014 ANAT BERNABE DO Ot 959.9 08/23/2014 ANAT BERNABE DO Ot E928.9 08/23/2014 KELLI BERNABE CHIEF PILOT Ot 729.5 08/23/2014 KELLI BERNABE CHIEF PILOT Ot 729.81 08/23/2014 ANAT BERNABE DO Ot [...] Ot 715.89 OSTEOARTHROSIS-MULT SITE 09/09/2014 ANAT BERNABE DO Ot E930.9 ADV EFF ANTIBIOTIC NOS 09/09/2014 [...] ON RADIOLOGICAL EXAMI 02/20/2016 Ot V67.09 SURGERY FOLLOW- UP, OTHER SURGERY 02/20/2016 Ot 610.0 SOLITARY CYST OF BREAST 02/20/2016 Ot 611.72 LUMP OR MASS IN BREAST 02/20/2016 Ot V72.63 PRE-PROCEDURAL LABORATORY EXAMINATION 02/20/2016 Ot V74.8 SCREEN-BACTERIAL DIS NEC 02/20/2016 Ot V67.09 SURGERY FOLLOW- UP, OTHER SURGERY 02/20/2016 Ot 721.3 LUMBOSACRAL SPONDYLOSIS [...] BERNABE DO Ot E928.9 ACCIDENT NOS 02/20/2016 KELLI BERNABE CHIEF PILOT Ot 729.5 PAIN IN LIMB 02/20/2016 KELLI BERNABE CHIEF PILOT Ot 729.81 SWELLING OF LIMB 02/20/2016 ANAT [...] OTH ABN AND INCONCLUSIVE FINDINGS ON DX 07/20/2016 AVRIL STANLEY APRN Ot I10 ESSENTIAL (PRIMARY) HYPERTENSION 07/20/2016 AVRIL STANLEY APRN Ot M17.0 BILATERAL PRIMARY OSTEOARTHRITIS OF KNEE 07/20/2016 AVRIL STANLEY APRN Ot M19.071 PRIMARY OSTEOARTHRITIS, RIGHT ANKLE AND 07/20/2016 AVRIL STANLEY APRN Ot S13.4XXA SPRAIN OF LIGAMENTS OF CERVICAL SPINE, I 07/20/2016 AVRIL STANLEY APRN Ot S19.9XXA UNSPECIFIED INJURY OF NECK, INITIAL ENCO 07/20/2016 AVRIL STANLEY APRN Ot W18.30XA FALL ON SAME LEVEL, UNSPECIFIED, INITIAL 07/20/2016 AVRIL STANLEY APRN Ot Y92.[address] OF OCCURRENCE O 07/20/2016 AVRIL STANLEY APRN Ot Y99.8 OTHER EXTERNAL CAUSE STATUS 07/20/2016 AVRIL STANLEY APRN Ot Z79.899 OTHER LINE CONTROLLER (CURRENT) DRUG THERAPY 07/23/2016 AVRIL STANLEY APRN Ot I10 ESSENTIAL [...] 07/23/2016 AVRIL STANLEY APRN Ot Z79.899 OTHER DETENTION (CURRENT) DRUG THERAPY 12/15/2016 PAYTON CADE, KRISTY Bahena Ot R43.2 PARAGEUSIA 12/15/2016 KRISTY CAIN MD Ot R51 HEADACHE 12/27/2016 Ot 611.72 LUMP OR MASS IN BREAST 12/27/2016 Ot V72.63 PRE-PROCEDURAL LABORATORY EXAMINATION 12/27/2016 Ot V74.8 SCREEN-BACTERIAL DIS NEC 12/27/2016 Ot V67.09 SURGERY FOLLOW- UP, OTHER SURGERY 12/27/2016 Ot 721.3 LUMBOSACRAL SPONDYLOSIS 12/27/2016 Ot 722.4 CERVICAL DISC DEGEN 12/27/2016 Ot 729.5 PAIN IN LIMB 12/27/2016 Ot E000.8 OTHER EXTERNAL CAUSE STATUS 12/27/2016 Ot E849.0 ACCIDENT IN HOME 12/27/2016 Ot E888.9 FALL NOS 12/27/2016 ANAT BERNABE DO Ot V76.12 OTH SCREEN MAMMO-MALIGN NEOPLASM OF ANITA 12/27/2016 ANAT BERNABE DO Ot 722.4 CERVICAL DISC DEGEN 12/27/2016 ANAT BERNABE DO Ot 959.9 INJURY-SITE NOS 12/27/2016 ANAT BERNABE DO Ot E928.9 ACCIDENT NOS 12/27/2016 KELLI BERNABE CHIEF PILOT Ot 729.5 PAIN IN LIMB 12/27/2016 KELLI BERNABE CHIEF PILOT Ot 729.81 SWELLING OF LIMB 12/27/2016 ANAT BERNABE DO Ot 959.4 HAND INJURY NOS 12/27/2016 ANAT BERNABE DO Ot E000.8 OTHER EXTERNAL CAUSE STATUS 12/27/2016 ANAT BERNABE DO Ot E849.0 ACCIDENT IN HOME 12/27/2016 ANAT BERNABE DO Ot E888.9 FALL NOS 12/27/2016 ANAT BERNABE DO Ot 465.9 ACUTE URI NOS 12/27/2016 ANAT BERNABE DO Ot 787.91 DIARRHEA 12/27/2016 ANAT BERNABE DO Ot 787.91 DIARRHEA 12/27/2016 ANAT BERNABE DO Ot Z12.31 ENCNTR SCREEN MAMMOGRAM FOR MALIGNANT NE 12/27/2016 ANAT BERNABE DO Ot R92.8 OTH ABN AND INCONCLUSIVE FINDINGS ON DX 12/27/2016 KRISTY CAIN MD Ot R43.2 PARAGEUSIA 12/27/2016 KRISTY CAIN MD Ot R51 HEADACHE 12/28/2016 ANAT BERNABE DO Ot R05 COUGH 01/03/2017 ANAT BERNABE DO Ot R05 COUGH 01/18/2017 ARIEL AVELAR MD Ot I10 ESSENTIAL (PRIMARY) HYPERTENSION 01/18/2017 ARIEL AVELAR MD Ot J32.9 CHRONIC SINUSITIS, UNSPECIFIED 01/18/2017 ARIEL AVELAR MD Ot R05 COUGH 01/18/2017 ARIEL AVELAR MD Ot Z79.899 OTHER LINE CONTROLLER (CURRENT) DRUG THERAPY 01/18/2017 ARIEL AVELAR MD Ot I10 ESSENTIAL (PRIMARY) HYPERTENSION 01/18/2017 ARIEL AVELAR MD Ot J32.9 CHRONIC SINUSITIS, UNSPECIFIED 01/18/2017 ARIEL AVELAR MD Ot R05 COUGH 01/18/2017 ARIEL AVELAR MD Ot Z79.899 OTHER LINE CONTROLLER (CURRENT) DRUG THERAPY 01/28/2017 ANAT BERNABE DO Ot R05 COUGH 01/29/2017 ANAT BERNABE DO Ot R05 COUGH 02/04/2017 ANAT BERNABE DO Ot M79.601 PAIN IN RIGHT ARM 02/05/2017 ANAT BERNABE DO Ot M79.601 PAIN IN RIGHT ARM 02/05/2017 ANAT BERNABE DO Ot R59.0 LOCALIZED ENLARGED LYMPH NODES 02/08/2017 ANAT BERNABE DO Ot 787.91 DIARRHEA 02/09/2017 ERNESTO KIMBALL AGUSTINA Ot E86.0 DEHYDRATION 02/09/2017 AGUSTINA OROZCO DO Ot I10 ESSENTIAL (PRIMARY) HYPERTENSION 02/09/2017 ERNESTO KIMBALL AGUSTINA Ot K21.9 GASTRO-ESOPHAGEAL REFLUX DISEASE WITHOUT 02/09/2017 ERNESTO KIMBALL AGUSTINA Ot M17.0 BILATERAL PRIMARY OSTEOARTHRITIS OF KNEE 02/09/2017 VIOLET OROZCO DOI Ot 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 02/09/2017 VIOLET OROZCO DOI Ot N17.9 ACUTE KIDNEY FAILURE, UNSPECIFIED 02/09/2017 AGUSTINA OROZCO DO Ot N39.0 URINARY TRACT INFECTION, SITE NOT SPECIF 02/09/2017 ERNESTO KIMBALL AGUSTINA Ot R53.83 OTHER FATIGUE 02/09/2017 ERNESTO KIMBALL AGUSTINA Ot Z79.899 OTHER LINE CONTROLLER (CURRENT) DRUG THERAPY 02/09/2017 ERNESTO KIMBALL AGUSTINA Ot E86.0 DEHYDRATION 02/09/2017 ERNESTO KIMBALL AGUSTIAN Ot I10 ESSENTIAL (PRIMARY) HYPERTENSION 02/09/2017 ERNESTO KIMBALL AGUSTINA Ot K21.9 GASTRO-ESOPHAGEAL REFLUX DISEASE WITHOUT 02/09/2017 ERNESTO DO AGUSTINA Ot M17.0 BILATERAL PRIMARY OSTEOARTHRITIS OF KNEE 02/09/2017 ERNESTO KIMBALL AGUSTINA Ot 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 02/09/2017 OROZCO DO, AGUSTINA Ot N17.9 ACUTE KIDNEY FAILURE, UNSPECIFIED 02/09/2017 OROZCO DO, AGUSTINA Ot N39.0 URINARY TRACT INFECTION, SITE NOT SPECIF 02/09/2017 OROZCO DO, AGUSTINA Ot R53.83 OTHER FATIGUE 02/09/2017 OROZCO DO, AGUSTINA Ot Z79.899 OTHER DETENTION (CURRENT) DRUG THERAPY 02/26/2017 ARIEL AVELAR MD Ot E83.42 HYPOMAGNESEMIA 02/26/2017 ARIEL AVELAR MD Ot E87.1 HYPO-OSMOLALITY AND HYPONATREMIA 02/26/2017 ARIEL AVELAR MD Ot E87.6 HYPOKALEMIA 02/26/2017 ARIEL AVELAR MD Ot G89.29 OTHER CHRONIC PAIN 02/26/2017 ARIEL AVELAR MD Ot G93.41 METABOLIC ENCEPHALOPATHY 02/26/2017 ARIEL AVELAR MD Ot I10 ESSENTIAL (PRIMARY) HYPERTENSION 02/26/2017 ARIEL AVELAR MD Ot I44.0 ATRIOVENTRICULAR BLOCK, FIRST DEGREE 02/26/2017 ARIEL AVELAR MD Ot J45.909 UNSPECIFIED ASTHMA, UNCOMPLICATED 02/26/2017 ARIEL AVELAR MD Ot K21.9 GASTRO-ESOPHAGEAL REFLUX DISEASE WITHOUT 02/26/2017 ARIEL AVELAR MD Ot M19.91 PRIMARY OSTEOARTHRITIS, UNSPECIFIED SITE 02/26/2017 ARIEL AVELAR MD Ot R63.1 POLYDIPSIA 02/26/2017 ARIEL AVELAR MD Ot Z66 DO NOT RESUSCITATE 02/26/2017 ARIEL AVELAR MD Ot Z87.440 PERSONAL HISTORY OF URINARY (TRACT) INFE 02/27/2017 ARIEL AVELAR MD Ot E83.42 HYPOMAGNESEMIA 02/27/2017 ARIEL AVELAR MD Ot E87.1 HYPO-OSMOLALITY AND HYPONATREMIA 02/27/2017 ARIEL AVELAR MD Ot E87.6 HYPOKALEMIA 02/27/2017 ARIEL AVELAR MD Ot G89.29 OTHER CHRONIC PAIN 02/27/2017 ARIEL AVELAR MD Ot G93.41 METABOLIC ENCEPHALOPATHY 02/27/2017 ARIEL AVELAR MD Ot I10 ESSENTIAL (PRIMARY) HYPERTENSION 02/27/2017 ARIEL AVELAR MD Ot I44.0 ATRIOVENTRICULAR BLOCK, FIRST DEGREE 02/27/2017 ARIEL AVELAR MD Ot J45.909 UNSPECIFIED ASTHMA, UNCOMPLICATED 02/27/2017 ARIEL AVELAR MD Ot K21.9 GASTRO-ESOPHAGEAL REFLUX DISEASE WITHOUT 02/27/2017 ARIEL AVELAR MD Ot M19.91 PRIMARY OSTEOARTHRITIS, UNSPECIFIED SITE 02/27/2017 ARIEL AVELAR MD Ot R63.1 POLYDIPSIA 02/27/2017 ARIEL AVELAR MD Ot Z66 DO NOT RESUSCITATE 02/27/2017 ARIEL AVELAR MD Ot Z87.440 PERSONAL HISTORY OF URINARY (TRACT) INFE 02/27/2017 ARIEL AVELAR MD Ot D64.9 ANEMIA, UNSPECIFIED 02/27/2017 ARIEL AVELAR MD Ot E83.42 HYPOMAGNESEMIA 02/27/2017 ARIEL AVELAR MD Ot E87.1 HYPO-OSMOLALITY AND HYPONATREMIA 02/27/2017 ARIEL AVELAR MD Ot E87.6 HYPOKALEMIA 02/27/2017 ARIEL AVELAR MD Ot G89.29 OTHER CHRONIC PAIN 02/27/2017 ARIEL AVELAR MD Ot G93.41 METABOLIC ENCEPHALOPATHY 02/27/2017 ARIEL AVELAR MD Ot I10 ESSENTIAL (PRIMARY) HYPERTENSION 02/27/2017 ARIEL AVELAR MD Ot I44.0 ATRIOVENTRICULAR BLOCK, FIRST DEGREE 02/27/2017 AIREL AVELAR MD Ot J45.909 UNSPECIFIED ASTHMA, UNCOMPLICATED 02/27/2017 ARIEL AVELAR MD Ot K21.9 GASTRO-ESOPHAGEAL REFLUX DISEASE WITHOUT 02/27/2017 ARIEL AVELAR MD Ot M19.91 PRIMARY OSTEOARTHRITIS, UNSPECIFIED SITE 02/27/2017 ARIEL AVELAR MD Ot R63.1 POLYDIPSIA 02/27/2017 ARIEL AVELAR MD Ot Z66 DO NOT RESUSCITATE 02/27/2017 ARIEL AVELAR MD Ot Z87.440 PERSONAL HISTORY OF URINARY (TRACT) INFE 02/27/2017 ANAT BERNABE DO Ot M79.601 PAIN IN RIGHT ARM 02/27/2017 ANAT BERNABE DO Ot R59.0 LOCALIZED ENLARGED LYMPH NODES 03/10/2018 ANAT BERNABE DO Ot V76.12 OTH SCREEN MAMMO-MALIGN NEOPLASM OF ANITA 03/10/2018 ANAT BERNABE DO Ot 722.4 CERVICAL DISC DEGEN 03/10/2018 ANAT BERNABE DO Ot 959.9 INJURY-SITE NOS 03/10/2018 ANAT BERNABE DO Ot E928.9 ACCIDENT NOS 03/10/2018 FLORECITA KELLI Bryon CHIEF PILOT Ot 729.5 PAIN IN LIMB 03/10/2018 KELLI BERNABE CHIEF PILOT Ot 729.81 SWELLING OF LIMB 03/10/2018 ANAT BERNABE DO Ot 959.4 HAND INJURY NOS 03/10/2018 ANAT BERNABE DO Ot E000.8 OTHER EXTERNAL CAUSE STATUS 03/10/2018 ANAT BERNABE DO Ot E849.0 ACCIDENT IN HOME 03/10/2018 ANAT BERNABE DO Ot E888.9 FALL NOS 03/10/2018 ANAT BERNABE DO Ot 465.9 ACUTE URI NOS 03/10/2018 ANAT BERNABE DO Ot 787.91 DIARRHEA 03/10/2018 ANAT BERNABE DO Ot 787.91 DIARRHEA 03/10/2018 ANAT BERNABE DO Ot Z12.31 ENCNTR SCREEN MAMMOGRAM FOR MALIGNANT NE 03/10/2018 ANAT BERNABE DO Ot R92.8 OTH ABN AND INCONCLUSIVE FINDINGS ON DX 03/10/2018 PAYTON CADE, KRISTY Bahena Ot R43.2 PARAGEUSIA 03/10/2018 PAYTON CADE, KRISTY Bahena Ot R51 HEADACHE 03/10/2018 ANAT BERNABE DO Ot R05 COUGH 03/10/2018 ANAT BERNABE DO Ot R05 COUGH 03/10/2018 ANAT BERNABE DO Ot M79.601 PAIN IN RIGHT ARM 03/10/2018 ANAT BERNABE DO Ot R59.0 LOCALIZED ENLARGED LYMPH NODES 03/10/2018 ANAT BERNABE DO Ot R92.8 OTH ABN AND INCONCLUSIVE FINDINGS ON DX 03/12/2018 ANAT BERNABE DO Ot N64.89 OTHER SPECIFIED DISORDERS OF BREAST 03/12/2018 ANAT BERNABE DO Ot R92.1 MAMMOGRAPHIC CALCIFCN FOUND ON DIAGNOSTI 04/03/2018 ANAT BERNABE DO, Ot N64.89 OTHER SPECIFIED DISORDERS OF BREAST 04/03/2018 FLORECITA KIMBALL ANAT Dinora Ot R92.1 MAMMOGRAPHIC CALCIFCN FOUND ON DIAGNOSTI Procedures There is no data. Results Test Result Range Complete blood count (CBC) with automated white blood cell (WBC) differential - 07/20/16 15:37 Blood leukocytes automated count (number/volume) 7.9 10*3/uL 4.3-11.0 Blood erythrocytes automated count (number/volume) 3.85 10*6/uL 4.35-5.85 Venous blood hemoglobin measurement (mass/volume) 11.2 g/dL 11.5-16.0 Blood hematocrit (volume fraction) 34 % 35-52 Automated erythrocyte mean corpuscular volume 88 [foz_us] 80-99 Automated erythrocyte mean corpuscular hemoglobin (mass per erythrocyte) 29 pg 25-34 Automated erythrocyte mean corpuscular hemoglobin concentration measurement (mass/volume) 33 g/dL 32-36 Automated erythrocyte distribution width ratio 14.0 % 10.0- 14.5 Automated blood platelet count (count/volume) 252 10*3/uL 130-400 Automated blood platelet mean volume measurement 9.4 [foz_us] 7.4-10.4 Automated blood neutrophils/100 leukocytes 59 % 42-75 Automated blood lymphocytes/100 leukocytes 27 % 12-44 Blood monocytes/100 leukocytes 10 % 0-12 Automated blood eosinophils/100 leukocytes 4 % 0-10 Automated blood basophils/100 leukocytes 0 % 0-10 Blood neutrophils automated count (number/volume) 4.7 10*3 1.8-7.8 Blood lymphocytes automated count (number/volume) 2.2 10*3 1.0-4.0 Blood monocytes automated count (number/volume) 0.8 10*3 0.0- 1.0 Automated eosinophil count 0.3 10*3/uL 0.0-0.3 Automated blood basophil count (count/volume) 0.0 10*3/uL 0.0-0.1 Comprehensive metabolic panel - 07/20/16 15:37 Serum or plasma sodium measurement (moles/volume) 141 mmol/L 135-145 Serum or plasma potassium measurement (moles/volume) 4.3 mmol/L 3.6-5.0 Serum or plasma chloride measurement (moles/volume) 109 mmol/L 98-107 Carbon dioxide 28 mmol/L 21-32 Serum or plasma anion gap determination (moles/volume) 4 mmol/L 5-14 Serum or plasma urea nitrogen measurement (mass/volume) 23 mg/dL 7-18 Serum or plasma creatinine measurement (mass/volume) 1.34 mg/dL 0.60-1.30 Serum or plasma urea nitrogen/creatinine mass [...] Serum or plasma aspartate aminotransferase measurement (enzymatic activity/volume) 28 U/L 5-34 Serum or plasma alanine aminotransferase measurement (enzymatic activity/volume) 25 U/L 0-55 Serum or plasma protein measurement (mass/volume) 6.8 g/dL 6.4-8.2 Serum or plasma albumin measurement (mass/volume) 3.6 g/dL 3.2-4.5 Bordetella pertussis and parapertussis DNA detection - 01/02/17 12:25 Bordetella parapertussis DNA detection by probe and target amplification method Not Detected Not Detected Bordetella pertussis and parapertussis DNA detection Not Detected Not Detected Complete blood count (CBC) with automated white blood cell (WBC) differential - 01/18/17 09:02 Blood leukocytes automated count (number/volume) 8.7 10*3/uL 4.3-11.0 Blood erythrocytes automated count (number/volume) 4.07 10*6/uL 4.35-5.85 Venous blood hemoglobin measurement (mass/volume) 12.0 g/dL 11.5-16.0 Blood hematocrit (volume fraction) 36 % 35-52 Automated erythrocyte mean corpuscular volume 89 [foz_us] 80-99 Automated erythrocyte mean corpuscular hemoglobin (mass per erythrocyte) 30 pg 25-34 Automated erythrocyte mean corpuscular hemoglobin concentration measurement (mass/volume) 33 g/dL 32-36 Automated erythrocyte distribution width ratio 13.1 % 10.0- 14.5 Automated blood platelet count (count/volume) 287 10*3/uL 130-400 Automated blood platelet mean volume measurement 8.9 [foz_us] 7.4-10.4 Automated blood neutrophils/100 leukocytes 79 % 42-75 Automated blood lymphocytes/100 leukocytes 14 % 12-44 Blood monocytes/100 leukocytes 5 % 0-12 Automated blood eosinophils/100 leukocytes 1 % 0-10 Automated blood basophils/100 leukocytes 0 % 0-10 Blood neutrophils automated count (number/volume) 6.8 10*3 1.8-7.8 Blood lymphocytes automated count (number/volume) 1.2 10*3 1.0-4.0 Blood monocytes automated count (number/volume) 0.5 10*3 0.0- 1.0 Automated eosinophil count 0.1 10*3/uL 0.0-0.3 Automated blood basophil count (count/volume) 0.0 10*3/uL 0.0-0.1 Comprehensive metabolic panel - 01/18/17 09:02 Serum or plasma sodium measurement (moles/volume) 139 mmol/L 135-145 Serum or plasma potassium measurement (moles/volume) 3.8 mmol/L 3.6-5.0 Serum or plasma chloride measurement (moles/volume) 103 mmol/L 98-107 Carbon dioxide 25 mmol/L 21-32 Serum or plasma anion gap determination (moles/volume) 11 mmol/L 5-14 Serum or plasma urea nitrogen measurement (mass/volume) 36 mg/dL 7-18 Serum or plasma creatinine measurement (mass/volume) 1.45 mg/dL 0.60-1.30 Serum or plasma urea nitrogen/creatinine mass ratio 25 NRG Serum or plasma creatinine measurement with calculation of estimated glomerular filtration rate 35 NRG Serum or plasma glucose measurement (mass/volume) 111 mg/dL 70-105 Serum or plasma calcium measurement (mass/volume) 9.7 mg/dL 8.5-10.1 Serum or plasma total bilirubin measurement (mass/volume) 0.4 mg/dL 0.1-1.0 Serum or plasma alkaline phosphatase measurement (enzymatic activity/volume) 105 U/L 40-136 Serum or plasma aspartate aminotransferase measurement (enzymatic activity/volume) 16 U/L 5-34 Serum or plasma alanine aminotransferase measurement (enzymatic activity/volume) 15 U/L 0-55 Serum or plasma protein measurement (mass/volume) 7.4 g/dL 6.4-8.2 Serum or plasma albumin measurement (mass/volume) 3.4 g/dL 3.2-4.5 Erythrocyte sedimentation rate by westergren method - 01/18/17 09:02 Erythrocyte sedimentation rate by westergren method 77 mm 0-30 Complete blood count (CBC) with automated white blood cell (WBC) differential - 02/08/17 09:05 Blood leukocytes automated count (number/volume) 8.6 10*3/uL 4.3-11.0 Blood erythrocytes automated count (number/volume) 4.37 10*6/uL 4.35-5.85 Venous blood hemoglobin measurement (mass/volume) 13.2 g/dL 11.5-16.0 Blood hematocrit (volume fraction) 39 % 35-52 Automated erythrocyte mean corpuscular volume 89 [foz_us] 80-99 Automated erythrocyte mean corpuscular hemoglobin (mass per erythrocyte) 30 pg 25-34 Automated erythrocyte mean corpuscular hemoglobin concentration measurement (mass/volume) 34 g/dL 32-36 Automated erythrocyte distribution width ratio 14.0 % 10.0- 14.5 Automated blood platelet count (count/volume) 243 10*3/uL 130-400 Automated blood platelet mean volume measurement 9.1 [foz_us] 7.4-10.4 Automated blood neutrophils/100 leukocytes 75 % 42-75 Automated blood lymphocytes/100 leukocytes 16 % 12-44 Blood monocytes/100 leukocytes 7 % 0-12 Automated blood eosinophils/100 leukocytes 1 % 0-10 Automated blood basophils/100 leukocytes 1 % 0-10 Blood neutrophils automated count (number/volume) 6.5 10*3 1.8-7.8 Blood lymphocytes automated count (number/volume) 1.4 10*3 1.0-4.0 Blood monocytes automated count (number/volume) 0.6 10*3 0.0- 1.0 Automated eosinophil count 0.1 10*3/uL 0.0-0.3 Automated blood basophil count (count/volume) 0.1 10*3/uL 0.0-0.1 Comprehensive metabolic panel - 02/08/17 09:05 Serum or plasma sodium measurement (moles/volume) 141 mmol/L 135-145 Serum or plasma potassium measurement (moles/volume) 3.8 mmol/L 3.6-5.0 Serum or plasma chloride measurement (moles/volume) 104 mmol/L 98-107 Carbon dioxide 25 mmol/L 21-32 Serum or plasma anion gap determination (moles/volume) 12 mmol/L 5-14 Serum or plasma urea nitrogen measurement (mass/volume) 28 mg/dL 7-18 Serum or plasma creatinine measurement (mass/volume) 1.72 mg/dL 0.60-1.30 Serum or plasma urea nitrogen/creatinine mass ratio 16 NRG Serum or plasma creatinine measurement with calculation of estimated glomerular filtration rate 29 NRG Serum or plasma glucose measurement (mass/volume) 113 mg/dL 70-105 Serum or plasma calcium measurement (mass/volume) 10.4 mg/dL 8.5-10.1 Serum or plasma total bilirubin measurement (mass/volume) 0.6 mg/dL 0.1-1.0 Serum or plasma alkaline phosphatase measurement (enzymatic activity/volume) 93 U/L 40-136 Serum or plasma aspartate aminotransferase measurement (enzymatic activity/volume) 22 U/L 5-34 Serum or plasma alanine aminotransferase measurement (enzymatic activity/volume) 20 U/L 0-55 Serum or plasma protein measurement (mass/volume) 8.0 g/dL 6.4-8.2 Serum or plasma albumin measurement (mass/volume) 4.2 g/dL 3.2-4.5 Complete urinalysis with reflex to culture - 02/08/17 09:20 Urine color determination YELLOW NRG Urine clarity determination CLEAR NRG Urine pH measurement by test strip 5 5-9 Specific gravity of urine by test strip 1.015 1.016-1.022 Urine protein assay by test strip, semi-quantitative NEGATIVE NEGATIVE Urine glucose detection by automated test strip NEGATIVE NEGATIVE Erythrocytes detection in urine sediment by light microscopy NEGATIVE NEGATIVE Urine ketones detection by automated test strip NEGATIVE NEGATIVE Urine nitrite detection by test strip NEGATIVE NEGATIVE Urine total bilirubin detection by test strip NEGATIVE NEGATIVE Urine urobilinogen measurement by automated test strip (mass/volume) NORMAL NORMAL Urine leukocyte esterase detection by dipstick 2+ NEGATIVE Automated urine sediment erythrocyte count by microscopy (number/high power field) NONE NRG Automated urine sediment leukocyte count by microscopy (number/high power field) [HPF] NRG Bacteria detection in urine sediment by light microscopy FEW NRG Squamous epithelial cells detection in urine sediment by light microscopy 2-5 NRG Crystals detection in urine sediment by light microscopy NONE NRG Casts detection in urine sediment by light microscopy NONE NRG Mucus detection in urine sediment by light microscopy NEGATIVE NRG Complete urinalysis with reflex to culture YES NRG Bacterial urine culture - 02/08/17 09:20 Bacterial urine culture [id number] NRG COLONY COUNT >100,000/ML NRG FTX;REPORTABLE SENSITIVITY REPORTED AT 0849, 02-10-17 NRG URINE CULTURE RESULTS PLUS NR Bacterial susceptibility panel - 02/08/17 09:20 Gentamicin susceptibility test by minimum inhibitory concentration <= NRG Trimethoprim/sulfamethoxazole susceptibility test by minimum inhibitoryconcentration >= NRG Ampicillin susceptibility test by minimum inhibitory concentration >= NRG Tobramycin susceptibility test by minimum inhibitory concentration <= NRG Cefazolin susceptibility test by minimum inhibitory concentration <= NRG Ceftriaxone susceptibility test by minimum inhibitory concentration <= NRG Ampicillin/sulbactam susceptibility test by minimum inhibitory concentration >= NRG Piperacillin/tazobactam susceptibility test by minimum inhibitory concentration <= NRG Ciprofloxacin susceptibility test by minimum inhibitory concentration <= NRG Meropenem susceptibility test by minimum inhibitory concentration <= NRG Nitrofurantoin susceptibility test by minimum inhibitory concentration <= NRG Aztreonam susceptibility test by minimum inhibitory concentration <= NRG Extended spectrum beta lactamase (ESBL) producing bacteria susceptibility test by minimum inhibitory concentration - [facility] Bacterial blood culture - 02/08/17 10:07 FREE TEXT EXTERNAL SEE COMMENT NRG QUANTITY OF GROWTH Isolated NRG Bacterial blood culture [id number] [facility] Bacterial blood culture - 02/08/17 10:21 Bacterial blood culture NG NR Blood lactic acid measurement (moles/volume) - 02/08/17 10:25 Blood lactic acid measurement (moles/volume) 0.95 mmol/L 0.50- 2.00 Complete blood count (CBC) with automated white blood cell (WBC) differential - 02/09/17 05:59 Blood leukocytes automated count (number/volume) 6.4 10*3/uL 4.3-11.0 Blood erythrocytes automated count (number/volume) 3.54 10*6/uL 4.35-5.85 Venous blood hemoglobin measurement (mass/volume) 10.7 g/dL 11.5-16.0 Blood hematocrit (volume fraction) 32 % 35-52 Automated erythrocyte mean corpuscular volume 90 [foz_us] 80-99 Automated erythrocyte mean corpuscular hemoglobin (mass per erythrocyte) 30 pg 25-34 Automated erythrocyte mean corpuscular hemoglobin concentration measurement (mass/volume) 33 g/dL 32-36 Automated erythrocyte distribution width ratio 14.2 % 10.0- 14.5 Automated blood platelet count (count/volume) 218 10*3/uL 130-400 Automated blood platelet mean volume measurement 9.5 [foz_us] 7.4-10.4 Automated blood neutrophils/100 leukocytes 63 % 42-75 Automated blood lymphocytes/100 leukocytes 25 % 12-44 Blood monocytes/100 leukocytes 10 % 0-12 Automated blood eosinophils/100 leukocytes 2 % 0-10 Automated blood basophils/100 leukocytes 1 % 0-10 Blood neutrophils automated count (number/volume) 4.0 10*3 1.8-7.8 Blood lymphocytes automated count (number/volume) 1.6 10*3 1.0-4.0 Blood monocytes automated count (number/volume) 0.6 10*3 0.0- 1.0 Automated eosinophil count 0.1 10*3/uL 0.0-0.3 Automated blood basophil count (count/volume) 0.0 10*3/uL 0.0-0.1 Comprehensive metabolic panel - 02/09/17 05:59 Serum or plasma sodium measurement (moles/volume) 138 mmol/L 135-145 Serum or plasma potassium measurement (moles/volume) 3.9 mmol/L 3.6-5.0 Serum or plasma chloride measurement (moles/volume) 105 mmol/L 98-107 Carbon dioxide 26 mmol/L 21-32 Serum or plasma anion gap determination (moles/volume) 7 mmol/L 5-14 Serum or plasma urea nitrogen measurement (mass/volume) 19 mg/dL 7-18 Serum or plasma creatinine measurement (mass/volume) 1.36 mg/dL 0.60-1.30 Serum or plasma urea nitrogen/creatinine mass ratio 14 NRG Serum or plasma creatinine measurement with calculation of estimated glomerular filtration rate 38 NRG Serum or plasma glucose measurement (mass/volume) 98 mg/dL 70-105 Serum or plasma calcium measurement (mass/volume) 8.7 mg/dL 8.5-10.1 Serum or plasma total bilirubin measurement (mass/volume) 0.4 mg/dL 0.1-1.0 Serum or plasma alkaline phosphatase measurement (enzymatic activity/volume) 71 U/L 40-136 Serum or plasma aspartate aminotransferase measurement (enzymatic activity/volume) 18 U/L 5-34 Serum or plasma alanine aminotransferase measurement (enzymatic activity/volume) 16 U/L 0-55 Serum or plasma protein measurement (mass/volume) 6.0 g/dL 6.4-8.2 Serum or plasma albumin measurement (mass/volume) 3.2 g/dL 3.2-4.5 Complete blood count (CBC) with automated white blood cell (WBC) differential - 02/25/17 20:00 Blood leukocytes automated count (number/volume) 9.5 10*3/uL 4.3-11.0 Blood erythrocytes automated count (number/volume) 4.01 10*6/uL 4.35-5.85 Venous blood hemoglobin measurement (mass/volume) 12.5 g/dL 11.5-16.0 Blood hematocrit (volume fraction) 33 % 35-52 Automated erythrocyte mean corpuscular volume 83 [foz_us] 80-99 Automated erythrocyte mean corpuscular hemoglobin (mass per erythrocyte) 31 pg 25-34 Automated erythrocyte mean corpuscular hemoglobin concentration measurement (mass/volume) 38 g/dL 32-36 Automated erythrocyte distribution width ratio 12.8 % 10.0- 14.5 Automated blood platelet count (count/volume) 255 10*3/uL 130-400 Automated blood platelet mean volume measurement 8.7 [foz_us] 7.4-10.4 Automated blood neutrophils/100 leukocytes 71 % 42-75 Automated blood lymphocytes/100 leukocytes 18 % 12-44 Blood monocytes/100 leukocytes 10 % 0-12 Automated blood eosinophils/100 leukocytes 1 % 0-10 Automated blood basophils/100 leukocytes 0 % 0-10 Blood neutrophils automated count (number/volume) 6.7 10*3 1.8-7.8 Blood lymphocytes automated count (number/volume) 1.7 10*3 1.0-4.0 Blood monocytes automated count (number/volume) 1.0 10*3 0.0- 1.0 Automated eosinophil count 0.1 10*3/uL 0.0-0.3 Automated blood basophil count (count/volume) 0.0 10*3/uL 0.0-0.1 Comprehensive metabolic panel - 02/25/17 20:00 Serum or plasma sodium measurement (moles/volume) 115 mmol/L 135-145 Serum or plasma potassium measurement (moles/volume) 3.4 mmol/L 3.6-5.0 Serum or plasma chloride measurement (moles/volume) 81 mmol/L 98-107 Carbon dioxide 22 mmol/L 21-32 Serum or plasma anion gap determination (moles/volume) 12 mmol/L 5-14 Serum or plasma urea nitrogen measurement (mass/volume) 6 mg/dL 7-18 Serum or plasma creatinine measurement (mass/volume) 0.83 mg/dL 0.60-1.30 Serum or plasma urea nitrogen/creatinine mass ratio 7 NRG Serum or plasma creatinine measurement with calculation of estimated glomerular filtration rate > NRG Serum or plasma glucose measurement (mass/volume) 95 mg/dL 70-105 Serum or plasma calcium measurement (mass/volume) 9.2 mg/dL 8.5-10.1 Serum or plasma total bilirubin measurement (mass/volume) 0.6 mg/dL 0.1-1.0 Serum or plasma alkaline phosphatase measurement (enzymatic activity/volume) 87 U/L 40-136 Serum or plasma aspartate aminotransferase measurement (enzymatic activity/volume) 25 U/L 5-34 Serum or plasma alanine aminotransferase measurement (enzymatic activity/volume) 20 U/L 0-55 Serum or plasma protein measurement (mass/volume) 7.1 g/dL 6.4-8.2 Serum or plasma albumin measurement (mass/volume) 4.1 g/dL 3.2-4.5 Magnesium - 02/25/17 20:00 Magnesium 1.4 mg/dL 1.8-2.4 Serum or plasma creatine kinase measurement (enzymatic activity/volume) - 02/25/17 20:00 Serum or plasma creatine kinase measurement (enzymatic activity/volume) 187 U/L 29-168 Serum or plasma creatine kinase MB measurement (enzymatic activity/volume) - 02/25/17 20:00 Serum or plasma creatine kinase MB measurement (enzymatic activity/volume) 3.8 ng/mL <6.6 Serum or plasma troponin i.cardiac measurement (mass/volume) - 02/25/17 20:00 Serum or plasma troponin i.cardiac measurement (mass/volume) < ng/mL <0.30 Serum or plasma thyrotropin measurement by detection limit <=0.05 miu/l (units/volume) - 02/25/17 20:00 Serum or plasma thyrotropin measurement by detection limit <=0.05 miu/l (units/volume) 1.19 u[iU]/mL 0.35-4.94 Complete urinalysis with reflex to culture - 02/25/17 21:55 Urine color determination YELLOW NRG Urine clarity determination CLEAR NRG Urine pH measurement by test strip 6 5-9 Specific gravity of urine by test strip 1.005 1.016-1.022 Urine protein assay by test strip, semi-quantitative NEGATIVE NEGATIVE Urine glucose detection by automated test strip NEGATIVE NEGATIVE Erythrocytes detection in urine sediment by light microscopy 1+ NEGATIVE Urine ketones detection by automated test strip NEGATIVE NEGATIVE Urine nitrite detection by test strip NEGATIVE NEGATIVE Urine total bilirubin detection by test strip NEGATIVE NEGATIVE Urine urobilinogen measurement by automated test strip (mass/volume) NORMAL NORMAL Urine leukocyte esterase detection by dipstick NEGATIVE NEGATIVE Automated urine sediment erythrocyte count by microscopy (number/high power field) RARE NRG Automated urine sediment leukocyte count by microscopy (number/high power field) RARE NRG Bacteria detection in urine sediment by light microscopy NEGATIVE NRG Squamous epithelial cells detection in urine sediment by light microscopy 0-2 NRG Crystals detection in urine sediment by light microscopy NONE NRG Casts detection in urine sediment by light microscopy NONE NRG Mucus detection in urine sediment by light microscopy NEGATIVE NRG Complete urinalysis with reflex to culture NO NRG Methicillin resistant Staphylococcus aureus (MRSA) screening culture - 02/25/17 22:23 Methicillin resistant Staphylococcus aureus (MRSA) screening culture NEG NRG Complete blood count (CBC) with automated white blood cell (WBC) differential - 02/26/17 04:20 Blood leukocytes automated count (number/volume) 7.4 10*3/uL 4.3-11.0 Blood erythrocytes automated count (number/volume) 3.42 10*6/uL 4.35-5.85 Venous blood hemoglobin measurement (mass/volume) 10.4 g/dL 11.5-16.0 Blood hematocrit (volume fraction) 28 % 35-52 Automated erythrocyte mean corpuscular volume 83 [foz_us] 80-99 Automated erythrocyte mean corpuscular hemoglobin (mass per erythrocyte) 30 pg 25-34 Automated erythrocyte mean corpuscular hemoglobin concentration measurement (mass/volume) 37 g/dL 32-36 Automated erythrocyte distribution width ratio 12.9 % 10.0- 14.5 Automated blood platelet count (count/volume) 241 10*3/uL 130-400 Automated blood platelet mean volume measurement 8.5 [foz_us] 7.4-10.4 Automated blood neutrophils/100 leukocytes 68 % 42-75 Automated blood lymphocytes/100 leukocytes 18 % 12-44 Blood monocytes/100 leukocytes 13 % 0-12 Automated blood eosinophils/100 leukocytes 1 % 0-10 Automated blood basophils/100 leukocytes 0 % 0-10 Blood neutrophils automated count (number/volume) 5.0 10*3 1.8-7.8 Blood lymphocytes automated count (number/volume) 1.4 10*3 1.0-4.0 Blood monocytes automated count (number/volume) 1.0 10*3 0.0- 1.0 Automated eosinophil count 0.0 10*3/uL 0.0-0.3 Automated blood basophil count (count/volume) 0.0 10*3/uL 0.0-0.1 Whole blood basic metabolic panel - 02/26/17 04:20 Serum or plasma sodium measurement (moles/volume) 127 mmol/L 135-145 Serum or plasma potassium measurement (moles/volume) 3.2 mmol/L 3.6-5.0 Serum or plasma chloride measurement (moles/volume) 95 mmol/L 98-107 Carbon dioxide 20 mmol/L 21-32 Serum or plasma anion gap determination (moles/volume) 12 mmol/L 5-14 Serum or plasma urea nitrogen measurement (mass/volume) 5 mg/dL 7-18 Serum or plasma creatinine measurement (mass/volume) 0.72 mg/dL 0.60-1.30 Serum or plasma urea nitrogen/creatinine mass ratio 7 NRG Serum or plasma creatinine measurement with calculation of estimated glomerular filtration rate > NRG Serum or plasma glucose measurement (mass/volume) 87 mg/dL 70-105 Serum or plasma calcium measurement (mass/volume) 8.6 mg/dL 8.5-10.1 Serum or plasma phosphate measurement (mass/volume) - 02/26/17 04:20 Serum or plasma phosphate measurement (mass/volume) 2.8 mg/dL 2.3-4.7 Magnesium - 02/26/17 04:20 Magnesium 1.7 mg/dL 1.8-2.4 Serum or plasma lithium measurement (moles/volume) - 02/26/17 04:20 BNP level 208.6 pg/mL <100.0 Whole blood basic metabolic panel - 02/26/17 10:13 Serum or plasma sodium measurement (moles/volume) 132 mmol/L 135-145 Serum or plasma potassium measurement (moles/volume) 3.9 mmol/L 3.6-5.0 Serum or plasma chloride measurement (moles/volume) 100 mmol/L 98-107 Carbon dioxide 24 mmol/L 21-32 Serum or plasma anion gap determination (moles/volume) 8 mmol/L 5-14 Serum or plasma urea nitrogen measurement (mass/volume) 5 mg/dL 7-18 Serum or plasma creatinine measurement (mass/volume) 0.79 mg/dL 0.60-1.30 Serum or plasma urea nitrogen/creatinine mass ratio 6 NRG Serum or plasma creatinine measurement with calculation of estimated glomerular filtration rate > NRG Serum or plasma glucose measurement (mass/volume) 103 mg/dL 70-105 Serum or plasma calcium measurement (mass/volume) 9.4 mg/dL 8.5-10.1 Serum or plasma phosphate measurement (mass/volume) - 02/26/17 10:13 Serum or plasma phosphate measurement (mass/volume) 2.4 mg/dL 2.3-4.7 Magnesium - 02/26/17 10:13 Magnesium 2.5 mg/dL 1.8-2.4 Complete blood count (CBC) with automated white blood cell (WBC) differential - 02/27/17 04:15 Blood leukocytes automated count (number/volume) 6.2 10*3/uL 4.3-11.0 Blood erythrocytes automated count (number/volume) 3.44 10*6/uL 4.35-5.85 Venous blood hemoglobin measurement (mass/volume) 10.6 g/dL 11.5-16.0 Blood hematocrit (volume fraction) 30 % 35-52 Automated erythrocyte mean corpuscular volume 88 [foz_us] 80-99 Automated erythrocyte mean corpuscular hemoglobin (mass per erythrocyte) 31 pg 25-34 Automated erythrocyte mean corpuscular hemoglobin concentration measurement (mass/volume) 35 g/dL 32-36 Automated erythrocyte distribution width ratio 14.2 % 10.0- 14.5 Automated blood platelet count (count/volume) 241 10*3/uL 130-400 Automated blood platelet mean volume measurement 8.7 [foz_us] 7.4-10.4 Automated blood neutrophils/100 leukocytes 53 % 42-75 Automated blood lymphocytes/100 leukocytes 33 % 12-44 Blood monocytes/100 leukocytes 13 % 0-12 Automated blood eosinophils/100 leukocytes 1 % 0-10 Automated blood basophils/100 leukocytes 0 % 0-10 Blood neutrophils automated count (number/volume) 3.3 10*3 1.8-7.8 Blood lymphocytes automated count (number/volume) 2.0 10*3 1.0-4.0 Blood monocytes automated count (number/volume) 0.8 10*3 0.0- 1.0 Automated eosinophil count 0.1 10*3/uL 0.0-0.3 Automated blood basophil count (count/volume) 0.0 10*3/uL 0.0-0.1 Whole blood basic metabolic panel - 02/27/17 04:15 Serum or plasma sodium measurement (moles/volume) 138 mmol/L 135-145 Serum or plasma potassium measurement (moles/volume) 3.9 mmol/L 3.6-5.0 Serum or plasma chloride measurement (moles/volume) 107 mmol/L 98-107 Carbon dioxide 23 mmol/L 21-32 Serum or plasma anion gap determination (moles/volume) 8 mmol/L 5-14 Serum or plasma urea nitrogen measurement (mass/volume) 7 mg/dL 7-18 Serum or plasma creatinine measurement (mass/volume) 0.90 mg/dL 0.60-1.30 Serum or plasma urea nitrogen/creatinine mass ratio 8 NRG Serum or plasma creatinine measurement with calculation of estimated glomerular filtration rate > NRG Serum or plasma glucose measurement (mass/volume) 84 mg/dL 70-105 Serum or plasma calcium measurement (mass/volume) 9.0 mg/dL 8.5-10.1 Serum or plasma phosphate measurement (mass/volume) - 02/27/17 04:15 Serum or plasma phosphate measurement (mass/volume) 2.6 mg/dL 2.3-4.7 Magnesium - 02/27/17 04:15 Magnesium 1.8 mg/dL 1.8-2.4 Encounters ACCT No. Visit Date/Time Discharge Status Pt. Type Provider Facility Loc./Unit Complaint [id number] 08/22/2018 09:14:00 08/22/2018 23:59:59 CLS Preadmit ANAT BERNABE DO [facility] RAD F/U ABN MAMMO [id number] 03/10/2018 12:59:00 03/10/2018 23:59:59 CLS Outpatient FLORECITA KIMBALLANAT Dinora [facility] RAD YEARLY ABNORMAL MAMMOGRAM L [id number] 01/24/2018 11:29:00 01/24/2018 23:59:59 CLS Preadmit ANAT BERNABE DO [facility] RAD SCREENING [id number] 01/24/2018 11:21:00 01/24/2018 23:59:59 CLS Preadmit ANAT BERNABE DO [facility] RAD SCREEN [id number] 02/25/2017 21:35:00 02/27/2017 09:50:00 DIS Inpatient ARIEL AVELAR MD [facility] ICU PROFOUND HYPONATREMIA,HYPOMAGNESIUM,AMS [id number] 02/08/2017 10:26:00 02/09/2017 13:20:00 DIS Inpatient AGUSTINA OROZCO DO [facility] 4TH UTI [id number] 02/04/2017 15:23:00 02/04/2017 23:59:59 CLS Outpatient FLORECITA KIMBALL ANAT Dinora [facility] RAD R ARM PAIN [id number] 01/18/2017 08:20:00 01/18/2017 23:59:59 CLS Emergency ARIEL AVELAR MD [facility] ER WEAK,SINUS ISSUE [id number] 01/02/2017 12:14:00 01/02/2017 23:59:59 CLS Outpatient FLORECITA KIMBALL ANAT Dinora [facility] LAB R05 [id number] 12/27/2016 12:54:00 12/27/2016 23:59:59 CLS Outpatient ANAT BERNABE DO [facility] RAD R05 [id number] 11/23/2016 15:13:00 11/23/2016 23:59:59 CLS Outpatient KRISTY CAIN MD [facility] RAD HEADACHES, DECREASED TASTE [id number] 07/20/2016 14:58:00 07/20/2016 16:55:00 DIS Emergency AVRIL STANLEY [employer] [facility] ER FALL [id number] 03/05/2016 08:07:00 03/05/2016 23:59:59 CLS Outpatient ANAT BERNABE DO [facility] RAD ABNORMAL MAMMO [id number] 02/20/2016 10:51:00 02/20/2016 23:59:59 CLS Outpatient FLORECITA KIMBALL ANAT Dinora [facility] RAD SCREENING [id number] 11/22/2014 00:14:00 11/22/2014 23:59:59 CLS Preadmit FLORECITA KIMBALL ANAT Dinora [facility] LAB DIARRHEA [id number] 08/23/2014 16:43:00 11/21/2014 00:01:00 DIS Outpatient ANAT BERNABE DO [facility] LAB DIARRHEA [id number] 09/06/2014 17:39:00 09/09/2014 12:30:00 DIS Inpatient ANAT BERNABE DO [facility] SURGICAL DEHYDRATION CDIFF [id number] 04/21/2014 14:41:00 04/21/2014 23:59:59 CLS Outpatient ANAT BERNABE DO [facility] LAB DIZZINES,UTI [id number] 02/12/2014 18:54:00 02/12/2014 23:59:59 CLS Emergency ELIASANAT PAGAN DO [facility] ER FALL ABDOMINAL/NECK PAIN [id number] 12/30/2013 17:27:00 12/30/2013 23:59:59 CLS Outpatient ANAT BERNABE DO [facility] RAD TRAUMA [id number] 09/18/2013 11:17:00 09/18/2013 23:59:59 CLS Outpatient KELLI BERNABE CHIEF PILOT [facility] RAD LOWER BILAT SWELLING [id number] 09/03/2013 16:18:00 09/03/2013 23:59:59 CLS Outpatient ANAT BERNABE DO [facility] RAD TRAUMA [id number] 07/08/2013 10:56:00 07/08/2013 23:59:59 CLS Outpatient ANAT BERNABE DO [facility] RAD SCREENING [id number] 05/02/2012 10:39:00 Document Registration [id number] 04/18/2012 12:08:00 Document Registration [id number] 02/06/2012 13:08:00 Document Registration [id number] 11/30/2011 02:42:00 Document Registration [id number] 09/30/2011 19:53:00 Document Registration [id number] 07/17/2011 05:38:00 Document Registration [id number] 07/10/2011 08:37:00 Document Registration [id number] 07/03/2011 08:49:00 Document Registration [id number] 06/04/2011 12:20:00 Document Registration [id number] 11/01/2010 11:33:00 Document Registration [id number] 09/20/2010 14:12:00 Document Registration [id number] 06/21/2010 10:54:00 Document Registration [id number] 06/12/2010 09:54:00 Document Registration [id number] 05/17/2010 10:48:00 Document Registration [id number] 04/20/2009 09:58:00 Document Registration
--- NOTE | 2018-11-15 19:45 | ED Fall/Injury ---
General Chief Complaint: Trauma-Non Activation Stated Complaint: FELL OFF PORCH;HEAD,HIP,HAND PAIN Nursing Triage Note: pt fell off of porch and c/o pain in right side of neck, head, and back, bilateral knees, and has a laceration on left thumb. Source: patient (DIFFICULT HISTORIAN--TALKS NON-STOP--ABOUT EVERYTHING EXCEPT WHY SHE IS HERE) Allergies and Home Medications Allergies Coded Allergies: clindamycin (Verified Allergy, Unknown, SEVERE DIARRHEA, 02/08/17) Home Medications Albuterol Sulfate 1 Puff Puff, 2 PUFF INH QID PRN for SHORTNESS OF BREATH, (Reported) Cetirizine HCl 10 Mg Tablet, 10 MG PO HS, (Reported) Fluticasone Propionate 16 Gm [place].susp, 1 SPRAY NS DAILY, (Reported) Metoprolol Tartrate 50 Mg Tablet, 50 MG PO BID, (Reported) Montelukast Sodium 10 Mg Tablet, 10 MG PO HS, (Reported) Multivit-Min/FA/Lycopene/Lut 1 Each Tablet, 1 TAB PO DAILY, (Reported) Naproxen Sodium 220 Mg Tablet, 440 MG PO HS PRN for PAIN-MILD, (Reported) TAKES 2 (220MG) TABLETS Omeprazole 20 Mg Capsule.dr, 20 MG PO BID, (Reported) Past Jrnuguv-Jhxuph-Xowtbc Hx Patient Social History Alcohol Use: Denies Use Recreational Drug Use: No 2nd Hand Smoke Exposure: No Recent Foreign Travel: No Contact w/Someone Who Travel: No Recent Infectious Disease Expo: No Recent Hopitalizations: No Immunizations Up To Date Tetanus Booster (TDap): More than 5yrs PED Vaccines UTD: Yes Seasonal Allergies Seasonal Allergies: Yes Past Medical History Surgeries: Yes Adenoidectomy, Orthopedic, Tonsillectomy Respiratory: Yes Asthma Currently Using CPAP: No Currently Using BIPAP: No Cardiac: Yes Hypertension Neurological: No Reproductive Disorders: No Female 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 Sexually Transmitted Disease: No Genitourinary: Yes UTI-Chronic Gastrointestinal: Yes Gastroesophageal Reflux Musculoskeletal: Yes (ARTHRITIS, CHRONIC PAIN) Arthritis Endocrine: No HEENT: No Cancer: No Psychosocial: No Integumentary: No Blood Disorders: No Family Medical History Arthritis Completed stroke Seizure disorder No Family History of: AIDS Abdominal aortic aneurysm [place]'s disease Alcoholism Alzheimer's disease Aphasia Asthma Cancer of mouth Cardiovascular disease Cataracts Colon cancer Congenital disease Congenital heart disease Coronary thrombosis Cystic fibrosis Deafness or hearing loss Dementia Diabetes mellitus Drug abuse Dysphasia Fibrocystic disease of breast Gastroenteritis Glaucoma Headache disorder Hypercholesterolemia Hypertension Infertility Kidney disease Myocardial infarction Neoplasm Not obtainable due to adoption Osteoporosis Parkinson's disease Prostate cancer Psychosocial problem Respiratory disorder Severe allergy Thyroid disease Tuberculosis Visual disorder No Pertinent Family Hx Physical Exam Vital Signs Vital Signs - First Documented 11/15/18 18:10 Temp 97.7 Pulse 62 Resp 18 B/P (MAP) 151/89 (109) Pulse Ox 98 O2 Delivery Room Air Capillary Refill : Less Than 3 Seconds Height, Weight, BMI Height: 5'5.00" Weight: 230lbs. 4.8oz. 104.905415bk; 35.6 BMI Method:Stated Progress/Results/Core Measures Results/Orders My Orders Orders - KEENAN IYER DO Ed Iv/Invasive Line Start (11/15/18 18:17) Ct Thoracic/Lumbar Spine Wo (11/15/18 18:17) Chest 1 View, Ap/Pa Only (11/15/18 18:17) Shoulder, Right, 3 Views (11/15/18 18:17) Humerus, Right, 2 Views (11/15/18 18:17) Femur, Right, 2 Views (11/15/18 18:17) Pelvis With Right Hip 2-3views (11/15/18 18:17) Dipht,Pertuss(Acell),Tet Adult (Boostrix (11/15/18 18:30) Forearm, 2 Views, Bilateral (11/15/18 18:17) Tibia/Fibula, Bilateral, 2view (11/15/18 18:17) Ct Head/Face/Cervical Wo (11/15/18 18:41) Hand, 3 Views, Bilateral (11/15/18 18:17) Medications Given in ED Current Medications Medications Dose Ordered Sig/Negar Route Start Time Stop Time Status Last Admin Dose Admin Diphtheria/ Tetanus/Acell Pertussis 0.5 ml ONCE ONCE IM 11/15/18 18:30 11/15/18 18:31 DC 11/15/18 18:35 0.5 ML Vital Signs/I&O 11/15/18 18:10 Temp 97.7 Pulse 62 Resp 18 B/P (MAP) 151/89 (109) Pulse Ox 98 O2 Delivery Room Air Blood Pressure Mean: [address] HEAD/MAXILLOFACIALS/CERVICAL SPINE--NO ACUTE PROCESS, DEGENERATIVE CHANGES OF CERVICAL SPINE--PER RADIOLOGIST REPORT AT [address] CT THORACIC/LUMBAR SPINE--NO ACUTE PROCESS, DEGENERATIVE CHANGES OF SPINE--PER RADIOLOGIST REPORT AT 1930 XRAYS: BILATERAL HANDS BILATERAL FOREARMS RIGHT HUMERUS RIGHT SHOULDER PELVIS / RIGHT HIP RIGHT FEMUR RIGHT TIB-FIB Departure Impression Primary Impression: S/P FALL FROM PORCH Additional Impressions: Minor head injury without loss of consciousness Facial contusion CERVICAL SPINE STRAIN Back strain LEFT HIP AND LEG CONTUSIONS Contusion of right shoulder BILATERAL ARM CONTUSIONS Laceration of left thumb Jptzbuzoqv-mxhqeobuj-loxpqit (DPT) vaccination administered at current visit Disposition: HOME, SELF-CARE Condition: Improved Departure-Patient Inst. Referrals: ANAT BERNABE DO (PCP/Family) Primary Care Physician Patient Instructions: Black Eye, Contusion (DC), Diphtheria and Tetanus Toxoids, and Acellular Pertussis Vaccine, Laceration Repair With Stitches (DC), Minor Head Injury (DC), SPLINT CARE, Skin Abrasions (DC) Add. Discharge Instructions: ICE TO SORE AREAS AT 20 MINUTE INTERVALS ACTIVITIES TOLERATED WEAR SPLINT AT ALL TIMES CLEAN SUTURED WOUND TWICE A DAY WITH ANTIBACTERIAL SOAP AND WATER ON A Q-TIP, OTHERWISE KEEP CLEAN AND DRY TYLENOL NEEDED FOR PAIN KEEP YOUR APPOINTMENT WITH DR. BERNABE ON SATURDAY All discharge instructions reviewed with patient and/or family. Voiced understanding. Scripts Sulfamethoxazole/Trimethoprim (Bactrim Ds Tablet) 1 Each Tablet 1 EACH PO BID, #20 TAB Prov: KEENAN IYER DO 11/15/18 KEENAN IYER DO Nov 15, 2018 19:45
--- NOTE | 2018-11-15 19:55 | NUR ---
introduced self to patient, offered blanket. patient is resting quietly at this time, will continue to monitor.
--- NOTE | 2018-11-15 20:01 | Diagnostic Imaging Report ---
INDICATION: Pain FINDINGS: No lung contusion, pneumothorax or hemothorax. IMPRESSION: No acute abnormality apparent Dictated by: Dictated on workstation # [id number]
--- NOTE | 2018-11-15 20:06 | Diagnostic Imaging Report ---
INDICATION: Fall with pain all over FINDINGS: Two-view right femur showed no fracture or dislocation. IMPRESSION: No acute abnormality Dictated by: Dictated on workstation # [id number]
--- NOTE | 2018-11-15 20:14 | Diagnostic Imaging Report ---
INDICATION: Fall FINDINGS: Bilateral tib-fibs are performed. Arthritic changes to the bilateral knees and ankles. There is no fracture or dislocation. IMPRESSION: No acute appearing abnormality Dictated by: Dictated on workstation # [id number]
--- NOTE | 2018-11-15 20:18 | Diagnostic Imaging Report ---
INDICATION: Pain. EXAMINATION: Two-view humerus. FINDINGS: No fracture or dislocation. IMPRESSION: Negative. Dictated by: Dictated on workstation # [id number]
--- NOTE | 2018-11-15 20:19 | Diagnostic Imaging Report ---
INDICATION: Fall. EXAMINATION: AP pelvis and two-view right hip. FINDINGS: No fracture, dislocation, bony avulsion, suspicious foreign body or acute abnormality. No widening of the symphysis or SI joints. The pelvic rings intact. IMPRESSION: No acute appearing abnormality. Dictated by: Dictated on workstation # [id number]
--- NOTE | 2018-11-15 20:20 | Diagnostic Imaging Report ---
INDICATION: Fall, hurts all over, was imaged all over. FINDINGS: 3 views of the bilateral wrists are performed. There is no fracture, dislocation, or acute appearing abnormality. There was no focal swelling to alert attention to any particular site of localized pain. IMPRESSION: Degenerative changes but no acute finding at three-view bilateral hands. Dictated by: Dictated on workstation # [id number]
--- NOTE | 2018-11-15 20:20 | Diagnostic Imaging Report ---
INDICATION: Fall. EXAMINATION: Three-view right shoulder. FINDINGS: Glenohumeral osteoarthritis. There is no fracture or dislocation. The visualized adjacent ribs and pleura appear unremarkable. IMPRESSION: No acute appearing abnormality. Dictated by: Dictated on workstation # [id number]
--- NOTE | 2018-11-15 20:24 | Diagnostic Imaging Report ---
INDICATION: Fall, pain. EXAMINATION: Two views of bilateral forearms were performed. FINDINGS: On the left, there is an incidental tug lesion at the distal radius along the anterior aspect. No fracture or dislocation. No retained opaque foreign bodies. The articular surfaces are smooth. IMPRESSION: No acute finding at bilateral forearm radiographs. Dictated by: Dictated on workstation # [id number]
[2018-11-15] MEDS ORDERED: LIDOCAINE 1% INJ 20 ML 20 ML VIAL INJ ONE (20:30)
[2018-11-15] MEDS ORDERED: SULF1TAB35 PO (20:55)
[2018-11-15] MEDS ORDERED: TRIM/SULFAMETH 160/800 (SEPTRA DS) TAB PO ONE (21:00)
[2018-11-15 21:19] VITALS: BP 149/82
== END 2018-11-15 21:26 | disposition home or self-care (01) ==
LOC: EDUNIT# 17:30 → ER 17:35
DX: S09.90XA Unspecified injury of head, initial encounter (principal); S61.012A Laceration without foreign body of left thumb without damage to nail, initial encounter; S16.1XXA Strain of muscle, fascia and tendon at neck level, initial encounter; S39.012A Strain of muscle, fascia and tendon of lower back, initial encounter; S00.83XA Contusion of other part of head, initial encounter; S70.02XA Contusion of left hip, initial encounter; S80.12XA Contusion of left lower leg, initial encounter; S40.011A Contusion of right shoulder, initial encounter; S40.021A Contusion of right upper arm, initial encounter; S40.022A Contusion of left upper arm, initial encounter; I10 Essential (primary) hypertension; J45.909 Unspecified asthma, uncomplicated; K21.9 Gastro-esophageal reflux disease without esophagitis; Z88.1 Allergy status to other antibiotic agents; Z79.51 Long term (current) use of inhaled steroids; Z90.89 Acquired absence of other organs; W17.89XA Other fall from one level to another, initial encounter
CPT/HCPCS: 70450; 70486; 71045; 72125; 72128; 72131; 73030; 73060; 73552; 90715

== ENCOUNTER → 2018-11-26 | Outpatient (CLI) | payer MEDICARE, OTHER ==
[~2018-11-26] MED LIST changes: -OMEP20CA12 PO; +OMEP20CA13 PO; +SULF1TAB35 PO
--- NOTE | 2018-11-26 11:24 | Diagnostic Imaging Report ---
Indication: Six-month followup. Correlation is made with diagnostic mammogram earlier same day as well as left breast ultrasound from 03/10/2018. The area of hypoechogenicity with associated calcification 2 o'clock location of the left breast appears stable approximately 17 x 10 x 11 mm. This again most likely represents the area of fat necrosis and scarring mammographically. No new abnormality is seen. Impression: BI-RADS 3. Stable left breast ultrasound. Additional followup in 6 months could be performed to confirm stability. ACR BI-RADS Category 3: Probably benign findings. Dictated by: Dictated on workstation # [id number]
--- NOTE | 2018-11-26 16:23 | Diagnostic Imaging Report ---
INDICATION: Followup left breast scarring and fat necrosis. COMPARISON: 03/10/2018 and 02/20/2016. TECHNIQUE: Unilateral left 2D and 3D diagnostic mammography was performed with CAD. FINDINGS: The left breast remains heterogeneously dense, limiting the sensitivity of mammography. The area of fat necrosis and scarring in the upper-outer left breast appears stable. The fibronodular parenchymal pattern is stable. No new mass is seen. No suspicious calcifications are identified. IMPRESSION: Stable left mammogram. Further evaluation with ultrasound is recommended and will be performed today. ACR BI-RADS Category 0: Incomplete. (Needs additional imaging evaluation). Result letter will be mailed to the patient. Note: At least 10% of breast cancer is not imaged by mammography. Dictated by: Dictated on workstation # [id number]
== END ==
LOC: RAD 09:48
PROVIDERS: ATTEND Internal Medicine
DX: N64.1 Fat necrosis of breast (principal)
CPT/HCPCS: 76642

== ENCOUNTER 2019-03-16 07:43 | Emergency (ER) | payer MEDICARE, OTHER ==
[~2019-03-16] VITALS: Ht 165 cm; Wt 103.0 kg
[2019-03-16] MEDS ORDERED: KETOROLAC 30 MG/ML VIAL IVP STA (08:51)
[2019-03-16] MEDS ORDERED: LACTATED RINGERS 1,000 ML IV ONE (08:51)
--- NOTE | 2019-03-16 09:00 | ED General ---
General Chief Complaint: General Problems/Pain Stated Complaint: TROUBLE WALKING;PAIN ALL OVER Nursing Triage Note: PT TO ROOM 3 PER W/C CO CANNOT WALK TODAY, PT WAS ABLE TO STAND AND TRANSFER AND LIFT LEGS UP ON TO BED W ONLY VERBAL ASSISTANCE, PT STATES HAS PAIN ALL OVER AND WOKE UP NOT ABLE TO WALK WITHOUT TELLING HER EVERY STEP. STATES HAS NECK PROBLEMS. DENIES FALL Nursing Sepsis Screen: No Definite Risk Source of Information: Patient Exam Limitations: No Limitations History of Present Illness Date Seen by Provider: Mar 16, 2019 Time Seen by Provider: 08:40 Initial Comments Here with report of global weakness and all over body aches. This is actually been an ongoing problem with the pain. The weakness seems to be today. She is following with Dr. Nguyen and has CT of the head scheduled today. She also has chronic neck pain and states that it pops every time she turns her head. She denies taking anything for the pain. Denies nausea, vomiting, diarrhea or breathing problems. She has not taken anything for the pain. Also complains of constipation for 3 days. Timing/Duration: 1 Week, Changing Over Time, Getting Worse Severity: Moderate Associated Systoms: No Cough, No Diaphoresis, No Fever/Chills, No Nausea/Vomiting, No Shortness of Air; Weakness Allergies and Home Medications Allergies Coded Allergies: clindamycin (Verified Allergy, Unknown, SEVERE DIARRHEA, 02/08/17) Home Medications Albuterol Sulfate 1 Puff Puff, 2 PUFF INH QID PRN for SHORTNESS OF BREATH, (Reported) Cetirizine HCl 10 Mg Tablet, 10 MG PO HS, (Reported) Fluticasone Propionate 16 Gm Braggs.susp, 1 SPRAY NS DAILY, (Reported) Metoprolol Tartrate 50 Mg Tablet, 50 MG PO BID, (Reported) Montelukast Sodium 10 Mg Tablet, 10 MG PO HS, (Reported) Multivit-Min/FA/Lycopene/Lut 1 Each Tablet, 1 TAB PO DAILY, (Reported) Naproxen Sodium 220 Mg Tablet, 440 MG PO HS PRN for PAIN-MILD, (Reported) TAKES 2 (220MG) TABLETS Omeprazole 20 Mg Capsule.dr, 20 MG PO BID, (Reported) Sulfamethoxazole/Trimethoprim 1 Each Tablet, 1 EACH PO BID Prescribed by: KEENAN IYER on 11/15/182054 Patient Home Medication List Home Medication List Reviewed: Yes Review of Systems Review of Systems Constitutional: see HPI EENTM: no symptoms reported; No nose congestion, No throat pain Respiratory: No cough, No short of breath Cardiovascular: No chest pain, No edema Gastrointestinal: No abdominal pain, No nausea, No vomiting Genitourinary: no symptoms reported Musculoskeletal: back pain, joint pain, muscle pain, neck pain All Other Systems Reviewed Negative Unless Noted: Yes Past Jtycxuf-Xktarf-Phzunm Hx Past Med/Social Hx: Reviewed Nursing Past Med/Soc Hx Patient Social History Alcohol Use: Denies Use Recreational Drug Use: No Smoking Status: Never a Smoker 2nd Hand Smoke Exposure: No Recent Foreign Travel: No Contact w/Someone Who Travel: No Recent Infectious Disease Expo: No Recent Hopitalizations: No Immunizations Up To Date Tetanus Booster (TDap): More than 5yrs PED Vaccines UTD: Yes Seasonal Allergies Seasonal Allergies: Yes Past Medical History Surgeries: Yes Adenoidectomy, Orthopedic, Tonsillectomy Respiratory: Yes Asthma Currently Using CPAP: No Currently Using BIPAP: No Cardiac: Yes Hypertension Neurological: No Reproductive Disorders: No Female Reproductive Disorders: Denies 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 Sexually Transmitted Disease: No Genitourinary: Yes UTI-Chronic Gastrointestinal: Yes Gastroesophageal Reflux Musculoskeletal: Yes (ARTHRITIS, CHRONIC PAIN) Arthritis Endocrine: No HEENT: No Cancer: No Psychosocial: No Integumentary: No Blood Disorders: No Family Medical History Reviewed Nursing Family Hx Arthritis Completed stroke Seizure disorder No Family History of: AIDS Abdominal aortic aneurysm [place]'s disease Alcoholism Alzheimer's disease Aphasia Asthma Cancer of mouth Cardiovascular disease Cataracts Colon cancer Congenital disease Congenital heart disease Coronary thrombosis Cystic fibrosis Deafness or hearing loss Dementia Diabetes mellitus Drug abuse Dysphasia Fibrocystic disease of breast Gastroenteritis Glaucoma Headache disorder Hypercholesterolemia Hypertension Infertility Kidney disease Myocardial infarction Neoplasm Not obtainable due to adoption Osteoporosis Parkinson's disease Prostate cancer Psychosocial problem Respiratory disorder Severe allergy Thyroid disease Tuberculosis Visual disorder No Pertinent Family Hx Physical Exam Vital Signs Vital Signs - First Documented 03/16/19 08:20 Temp 36.4 Pulse 65 Resp 18 B/P (MAP) 153/87 (109) Pulse Ox 94 Capillary Refill : NONE Height, Weight, BMI Height: 5'5.00" Weight: 230lbs. 4.8oz. [id number]; 37.00 BMI Method:Stated General Appearance: No Apparent Distress, WD/WN HEENT: PERRL/EOMI, Pharynx Normal Neck: Supple, Limited Range of Motion, Other (reports some pain on turning her head that seems to have moderate range of motion bilaterally) Respiratory: Lungs Clear, Normal Breath Sounds Cardiovascular: Regular Rate, Rhythm, No Murmur Gastrointestinal: Normal Bowel Sounds, No Organomegaly, No Pulsatile Mass, Non Tender, Soft Back: Normal Inspection, No CVA Tenderness, No Vertebral Tenderness Extremity: Normal Inspection, Normal Range of Motion Neurologic/Psychiatric: Alert, Oriented x3 Skin: Normal Color, Warm/Dry Progress/Results/Core Measures Suspected Sepsis Recent Fever Within 48 Hours: No Infection Criteria Present: None New/Unexplained Altered Menta: No Sepsis Screen: No Definite Risk SIRS Temperature: Pulse: 65 Respiratory Rate: 18 Laboratory Tests 03/16/19 08:15: White Blood Count 7.8 Blood Pressure 153 /87 Mean: 109 Laboratory Tests 03/16/19 08:15: Creatinine 1.19, Platelet Count 224, Total Bilirubin 0.5 Results/Orders Lab Results Laboratory Tests Test 03/16/19 08:15 03/16/19 10:40 Range/Units White Blood Count 7.8 4.3-11.0 10^3/uL Red Blood Count 4.79 4.35-5.85 10^6/uL Hemoglobin 14.3 11.5-16.0 G/DL Hematocrit 42 35-52 % Mean Corpuscular Volume 88 80-99 FL Mean Corpuscular Hemoglobin 30 25-34 PG Mean Corpuscular Hemoglobin Concent 34 32-36 G/DL Red Cell Distribution Width 13.5 10.0-14.5 % Platelet Count 224 130-400 10^3/uL Mean Platelet Volume 10.1 7.4-10.4 FL Neutrophils (%) (Auto) 72 42-75 % Lymphocytes (%) (Auto) 18 12-44 % Monocytes (%) (Auto) 9 0-12 % Eosinophils (%) (Auto) 1 0-10 % Basophils (%) (Auto) 0 0-10 % Neutrophils # (Auto) 5.6 1.8-7.8 X 10^3 Lymphocytes # (Auto) 1.4 1.0-4.0 X 10^3 Monocytes # (Auto) 0.7 0.0-1.0 X 10^3 Eosinophils # (Auto) 0.1 0.0-0.3 10^3/uL Basophils # (Auto) 0.0 0.0-0.1 10^3/uL Sodium Level 141 135-145 MMOL/L Potassium Level 3.8 3.6-5.0 MMOL/L Chloride Level 105 98-107 MMOL/L Carbon Dioxide Level 25 21-32 MMOL/L Anion Gap 11 5-14 MMOL/L Blood Urea Nitrogen 18 7-18 MG/DL Creatinine 1.19 0.60-1.30 MG/DL Estimat Glomerular Filtration Rate 44 BUN/Creatinine Ratio 15 Glucose Level 110 H 70-105 MG/DL Calcium Level 9.8 8.5-10.1 MG/DL Corrected Calcium 9.6 8.5-10.1 MG/DL Magnesium Level 1.7 1.6-2.4 MG/DL Total Bilirubin 0.5 0.1-1.0 MG/DL Aspartate Amino Transf (AST/SGOT) 16 5-34 U/L Alanine Aminotransferase (ALT/SGPT) 16 0-55 U/L Alkaline Phosphatase 105 40-136 U/L C-Reactive Protein High Sensitivity 0.29 0.00-0.50 MG/DL Total Protein 7.5 6.4-8.2 GM/DL Albumin 4.2 3.2-4.5 GM/DL Thyroid Stimulating Hormone (TSH) 0.94 0.35-4.94 UIU/ML Urine Color YELLOW Urine Clarity CLEAR Urine pH 6.0 5-9 Urine Specific [place] 1.020 1.016-1.022 Urine Protein NEGATIVE NEGATIVE Urine Glucose (UA) NEGATIVE NEGATIVE Urine Ketones TRACE H NEGATIVE Urine Nitrite NEGATIVE NEGATIVE Urine Bilirubin NEGATIVE NEGATIVE Urine Urobilinogen 0.2 < = 1.0 MG/DL Urine Leukocyte Esterase NEGATIVE NEGATIVE Urine RBC (Auto) NEGATIVE NEGATIVE Urine RBC NONE /HPF Urine WBC RARE /HPF Urine Squamous Epithelial Cells 2-5 /HPF Urine Crystals NONE /LPF Urine Bacteria TRACE /HPF Urine Casts NONE /LPF Urine Mucus NEGATIVE /LPF Urine Culture Indicated NO My Orders Orders - OSCAR BORRERO MD Ketorolac Injection (Toradol Injection) (03/16/19 08:51) Cbc With Automated Diff (03/16/19 08:51) Comprehensive Metabolic Panel (03/16/19 08:51) Hs C Reactive Protein (03/16/19 08:51) Magnesium (03/16/19 08:51) Thyroid Stimulating Hormone (03/16/19 08:51) Ua Culture If Indicated (03/16/19 08:51) Ct Head/Cervical Spine Wo (03/16/19 08:51) Chest 1 View, Ap/Pa Only (03/16/19 08:51) Lactated Ringers (Lr 1000 Ml Iv Solution (03/16/19 08:51) Medications Given in ED Current Medications Medications Dose Ordered Sig/Negar Route Start Time Stop Time Status Last Admin Dose Admin Lactated Ringer's 1,000 ml @ 0 mls/hr Q0M ONCE IV 03/16/19 08:51 03/16/19 08:55 DC 03/16/19 10:00 1,000 MLS/HR Vital Signs/I&O 03/16/19 08:20 Temp 36.4 Pulse 65 Resp 18 B/P (MAP) 153/87 (109) Pulse Ox 94 Capillary Refill : NONE Blood Pressure Mean: 109 POS Progress Note : Progress Note Seen. IV, labs, UA, chest x-ray, LR 1 L bolus and Toradol 30 mg IV ordered. Monitor patient. 1105: UA ultimately obtained. Patient is a little better. She was able to transfer from wheelchair to toilet and from bed to wheelchair and back without difficulty. CT does not show any significant abnormality. She will get her mammogram today. I will send a copy of the chart to Dr. Nguyen. Discharged home with return precautions. Patient and family verbalize understanding instructions and agreement with plan. ECG Initial ECG Rhythm: V.Tach Diagnostic Imaging Diagonstic Imaging: Xray Comments [facility], [facility]. POS [place], [place] POS NAME: LYNNETTE CHOI [facility] REC#: [id number] PT STATUS: REG ER : 1945 PHYSICIAN: OSCAR BORRERO MD ADMIT DATE: 03/16/19/ER Draft POSDate of Exam:03/16/19 CHEST 1 VIEW, AP/PA ONLY INDICATION: Shortness of breath FINDINGS: The lungs are clear. The heart and vessels normal. There is no effusion or pneumothorax. IMPRESSION: No acute appearing abnormality. Dictated on workstation # [id number] Dict: 03/16/19 0940 Trans: 03/16/19 0942 [facility] [id number] Interpreted by: HOPE WONG Electronically signed by: Roxanna Imaging: CT Plain Films/CT/US/NM/MRI: c-spine, head Comments [facility]. POS [place], [place] POS NAME: LYNNETTE CHOI [facility] REC#: [id number] PT STATUS: REG ER : 1945 PHYSICIAN: OSCAR BORRERO MD ADMIT DATE: 03/16/19/ER Draft POSDate of Exam:03/16/19 CT HEAD/CERVICAL SPINE WO PROCEDURE: CT head and CT cervical spine without contrast. TECHNIQUE: Multiple contiguous axial images were obtained through the brain and cervical spine without the use of intravenous contrast. Sagittal and coronal reformations through the cervical spine were then performed. Auto Exposure Controls were utilized during the CT exam to meet ALARA standards for radiation dose reduction. INDICATION: Weakness. Pain. COMPARISON: 11/15/2018. FINDINGS: CT HEAD: The ventricles and cortical sulci are diffusely prominent, compatible with age-related volume loss. There are confluent areas of abnormal, low attenuation in the periventricular white matter. This is consistent with chronic small vessel ischemic changes. There is no midline shift or mass-effect. No acute intra-axial hemorrhage is seen. There are no abnormal areas of increased or decreased density to suggest acute hemorrhage or edema. No extra-axial masses or collections are present. The bony calvarium is intact. The visualized paranasal sinuses are unremarkable. The mastoid air cells are clear. CT CERVICAL SPINE: Evaluation of static alignment shows straightening of the normal lordotic curvature of the cervical spine. There is also slight grade 1 anterolisthesis at the C4-C5 and C5-C6 levels. These findings may relate to patient positioning, spasm, as well as underlying degenerative changes. There is no evidence of jumped facets. The vertebral body heights are maintained. There is no evidence of an acute fracture. No bony fragments are seen within the spinal canal. Moderate multilevel degenerative changes are noted and consistent with intervertebral disc height loss with anterior and posterior disc/osteophyte complex formations as well as multilevel facet arthropathy. Intervertebral degenerative changes appear greatest at the C6-C7 levels. Facet changes appear greatest on the right at the C2-C3 through C4-C5 levels. The pre and paravertebral soft tissue structures are unremarkable. Note is made of calcified carotid atherosclerosis. The included portions of the lung apices show no additional acute abnormalities. IMPRESSION: 1. No acute intracranial abnormality. No CT evidence of mass, acute infarct or intracranial hemorrhage. 2. Chronic small vessel ischemic changes in the deep white matter. 3. No acute fracture or dislocation in the cervical spine. 4. Moderate multilevel degenerative changes of the cervical spine. Dictated on workstation # [id number] Dict: 03/16/1942 Trans: 03/16/19 0949 [id number] Interpreted by: EZIO PORTER MD Electronically signed by: Departure Impression Primary Impression: Myalgia Additional Impression: Weakness Disposition: 01 HOME, SELF-CARE Condition: Stable Departure-Patient Inst. Decision time for Depature: 11:08 Referrals: ANAT NGUYEN DO (PCP/Family) Primary Care Physician Patient Instructions: Generalized Weakness (DC), Muscle and Bone Pain (DC) Add. Discharge Instructions: All discharge instructions reviewed with patient and/or family. Voiced understanding. When you leave the emergency department, go directly to outpatient registration and go ahead and sign up for your mammogram. They will fit you in now so you don't have to come back later today. Follow-up with Dr. Nguyen for recheck and further evaluation. Return for worse pain, fever, vomiting, weakness, breathing problems or other concerns as needed. Continue home medications as previously prescribed. Copy Copies To 1: ANAT NGUYEN TIMOTHY D MD Mar 16, 2019 09:00 POS
[2019-03-16 09:16] LABS: BASOPHILS % (AUTO) 0 % (0-10); EOSINOPHILS # (AUTO) 0.1 10^3/uL (0.0-0.3); EOSINOPHILS % (AUTO) 1 % (0-10); HEMATOCRIT 42 % (35-52); HEMOGLOBIN 14.3 G/DL (11.5-16.0); LYMPHOCYTES # (AUTO) 1.4 X 10^3 (1.0-4.0); LYMPHOCYTES % (AUTO) 18 % (12-44); MEAN CORPUSCULAR HEMOGLOBIN 30 PG (25-34); MEAN CORPUSCULAR HGB CONC 34 G/DL (32-36); MEAN CORPUSCULAR VOLUME 88 FL (80-99); MEAN PLATELET VOLUME 10.1 FL (7.4-10.4); MONOCYTES # (AUTO) 0.7 X 10^3 (0.0-1.0); MONOCYTES % (AUTO) 9 % (0-12); NEUTROPHILS # (AUTO) 5.6 X 10^3 (1.8-7.8); NEUTROPHILS % (AUTO) 72 % (42-75); PLATELET COUNT 224 10^3/uL (130-400); RED CELL DISTRIBUTION WIDTH 13.5 % (10.0-14.5); WHITE BLOOD COUNT 7.8 10^3/uL (4.3-11.0)
[2019-03-16 09:28] LABS: ALBUMIN 4.2 GM/DL (3.2-4.5); BILIRUBIN,TOTAL 0.5 MG/DL (0.1-1.0); CALCIUM 9.8 MG/DL (8.5-10.1); CREATININE SERUM 1.19 MG/DL (0.60-1.30); MAGNESIUM 1.7 MG/DL (1.6-2.4); POTASSIUM 3.8 MMOL/L (3.6-5.0); TOTAL PROTEIN 7.5 GM/DL (6.4-8.2)
--- NOTE | 2019-03-16 09:43 | Diagnostic Imaging Report ---
INDICATION: Shortness of breath FINDINGS: The lungs are clear. The heart and vessels normal. There is no effusion or pneumothorax. IMPRESSION: No acute appearing abnormality. Dictated by: Dictated on workstation # [id number]
--- NOTE | 2019-03-16 09:49 | Diagnostic Imaging Report ---
PROCEDURE: CT head and CT cervical spine without contrast. TECHNIQUE: Multiple contiguous axial images were obtained through the brain and cervical spine without the use of intravenous contrast. Sagittal and coronal reformations through the cervical spine were then performed. Auto Exposure Controls were utilized during the CT exam to meet ALARA standards for radiation dose reduction. INDICATION: Weakness. Pain. COMPARISON: 11/15/2018. FINDINGS: CT HEAD: The ventricles and cortical sulci are diffusely prominent, compatible with age-related volume loss. There are confluent areas of abnormal, low attenuation in the periventricular white matter. This is consistent with chronic small vessel ischemic changes. There is no midline shift or mass-effect. No acute intra-axial hemorrhage is seen. There are no abnormal areas of increased or decreased density to suggest acute hemorrhage or edema. No extra-axial masses or collections are present. The bony calvarium is intact. The visualized paranasal sinuses are unremarkable. The mastoid air cells are clear. CT CERVICAL SPINE: Evaluation of static alignment shows straightening of the normal lordotic curvature of the cervical spine. There is also slight grade 1 anterolisthesis at the C4-C5 and C5-C6 levels. These findings may relate to patient positioning, spasm, as well as underlying degenerative changes. There is no evidence of jumped facets. The vertebral body heights are maintained. There is no evidence of an acute fracture. No bony fragments are seen within the spinal canal. Moderate multilevel degenerative changes are noted and consistent with intervertebral disc height loss with anterior and posterior disc/osteophyte complex formations as well as multilevel facet arthropathy. Intervertebral degenerative changes appear greatest at the C6-C7 levels. Facet changes appear greatest on the right at the C2-C3 through C4-C5 levels. The pre and paravertebral soft tissue structures are unremarkable. Note is made of calcified carotid atherosclerosis. The included portions of the lung apices show no additional acute abnormalities. IMPRESSION: 1. No acute intracranial abnormality. No CT evidence of mass, acute infarct or intracranial hemorrhage. 2. Chronic small vessel ischemic changes in the deep white matter. 3. No acute fracture or dislocation in the cervical spine. 4. Moderate multilevel degenerative changes of the cervical spine. Dictated by: Dictated on workstation # [id number]
[2019-03-16 10:49] LABS: BILIRUBIN,URINE NEGATIVE (NEGATIVE); CLARITY,URINE CLEAR; COLOR,URINE YELLOW; GLUCOSE, URINE (UA) NEGATIVE (NEGATIVE); KETONES,URINE TRACE (NEGATIVE); LEUKOCYTE ESTERASE ,URINE NEGATIVE (NEGATIVE); NITRITE,URINE NEGATIVE (NEGATIVE); PROTEIN,URINE NEGATIVE (NEGATIVE)
[2019-03-16 10:56] LABS: BACTERIA,URINE TRACE /HPF; WBC,URINE RARE /HPF
[2019-03-16 11:44] VITALS: BP 149/65
== END 2019-03-16 11:44 | disposition home or self-care (01) ==
LOC: EDUNIT# 07:43 → ER 07:44
DX: M79.10 Myalgia, unspecified site (principal); R53.1 Weakness; J45.909 Unspecified asthma, uncomplicated; I10 Essential (primary) hypertension; K21.9 Gastro-esophageal reflux disease without esophagitis; Z87.440 Personal history of urinary (tract) infections; Z88.1 Allergy status to other antibiotic agents; Z79.51 Long term (current) use of inhaled steroids; Z90.89 Acquired absence of other organs
CPT/HCPCS: 36415; 70450; 71045; 72125; 80053; 81000; 83735; 84443; 85025; 86141; 96361; 96374

== ENCOUNTER → 2019-03-16 | Outpatient (CLI) | payer MEDICARE ==
--- NOTE | 2019-03-16 16:41 | Diagnostic Imaging Report ---
EXAM: Bilateral breast ultrasound, Limited. INDICATION: Abnormal mammogram The diagnostic mammogram performed earlier today noted coarse calcifications in the upper outer aspect of the left breast. This had the appearance of fat necrosis. The ultrasound examination in this area again shows an area of mixed echogenicity. This appearance is similar to the prior ultrasound exam of 11/26/2018 and is most likely benign. The mammographic images of the right breast performed earlier today noted a new small nodular density in the inferomedial aspect of the breast. In this region there is a small 1 x 0.9 x 0.6 cm hypoechoic area with internal echoes. This may represent a small complicated cyst. The possibility that this is malignant in nature should still be considered. I would recommend that an ultrasound-guided biopsy be performed for further study. IMPRESSION: 1. The area of mixed echogenicity in the upper outer aspect of the left breast seen previously appears stable. Most likely this is a benign process. A six-month follow-up mammogram would be recommended for continued evaluation. 2. The small complex hypoechoic lesion in the inferomedial aspect of the right breast is indeterminate. The possibility that this is malignant in nature should be considered. Recommendations as above. These results were discussed with Dr. Nguyen. ACR category 4. Suspicious. ACR BI-RADS Category 4: Suspicious abnormality. Result letter will be mailed to the patient. Note: At least 10% of breast cancer is not imaged by mammography. Dictated by: Dictated on workstation # [id number]
--- NOTE | 2019-03-17 10:48 | Diagnostic Imaging Report ---
Digital mammogram. Bilateral diagnostic The study was compared to the prior exams of 11/26/2018, 03/10/2018 and 02/20/2016. At this time there are no current complaints. The fibroglandular tissue in both breasts is heterogeneously dense. This does limit the sensitivity of this exam. The previous study did note a coarse calcification of the upper quadrant of the left breast. That finding is again evident and does not appear to have changed adversely. I suspect this may be secondary to fat necrosis. Ultrasound is pending for further study. In the interval since the prior study, a small 6 mm nodular density has developed in the inferomedial aspect of the right breast. This finding does seem to persist on the tomographic images. I would recommend ultrasound be performed for further study. The overall appearance of the right breast is otherwise no different. Impression: Ultrasound would be recommended for further evaluation of both breasts. ACR BI-RADS Category 0: Incomplete. (Needs additional imaging evaluation). Result letter will be mailed to the patient. Note: At least 10% of breast cancer is not imaged by mammography. Dictated by: Dictated on workstation # [id number]
== END ==
LOC: RAD 11:48
PROVIDERS: ATTEND Internal Medicine
DX: R92.2 Inconclusive mammogram (principal)
CPT/HCPCS: 76642; 77066

== ENCOUNTER 2019-04-29 09:29 | Emergency (ER) | payer MEDICARE, MEDICAID ==
[~2019-04-29] VITALS: Ht 165 cm; Wt 91.0 kg
[~2019-04-29 09:29] MED LIST changes: +OMEP-280 PO; -OMEP20CA13 PO
--- NOTE | 2019-04-29 09:49 | NUR ---
PT STATES HAS RASH UNDER BREAST
--- NOTE | 2019-04-29 10:06 | NUR ---
PT HAS SCRIPT AT HOME FOR NYSTANIN POWDER AND MELOXICAN THAT SHE IS NOT USING
--- NOTE | 2019-04-29 10:50 | Diagnostic Imaging Report ---
INDICATION: Bilateral knee pain. Time of exam 10:32 AM Multiple views bilateral knees were obtained. Both knees demonstrate medial and patellofemoral compartmental degenerative change with joint space narrowing and marginal spurring. The lateral compartments are fairly well maintained. No fracture, dislocation or effusion is seen. IMPRESSION: Degenerative changes. No acute bony abnormality is detected. Dictated by: Dictated on workstation # [id number]
--- NOTE | 2019-04-29 10:54 | Diagnostic Imaging Report ---
INDICATION: Bilateral ankle pain. Time of exam 10:34 AM Multiple views bilateral ankles were obtained. Alignment is normal. Ankle mortise is well maintained. Talar domes are smooth. No osteochondral lesion is seen. There is no fracture or dislocation. Well-corticated osseous density adjacent to the distal fibula on the right is noted which may represent an old avulsion. Plantar calcaneal spurs are noted bilaterally, largest on the left. IMPRESSION: No acute bony abnormality is detected. Dictated by: Dictated on workstation # [id number]
--- NOTE | 2019-04-29 10:54 | Diagnostic Imaging Report ---
INDICATION: Bilateral foot pain. TIME OF EXAMINATION: 10:35 AM. TECHNIQUE: Multiple views of the bilateral feet were obtained. FINDINGS: Both feet demonstrate fairly significant tarsal/metatarsal joint degenerative change. This may be greater on the right. The MTP and interphalangeal joints appear to be intact. No fractures are seen. Plantar calcaneal spurs are noted bilaterally. IMPRESSION: Tarsal/metatarsal joint degenerative changes with sclerosis, joint space narrowing, and marginal spurring bilaterally, right greater. No acute bony abnormality is detected. Dictated by: Dictated on workstation # [id number]
--- NOTE | 2019-04-29 11:09 | ED General ---
General Chief Complaint: General Problems/Pain Stated Complaint: JOINT PAIN Nursing Triage Note: PT ARRIVED PER EMS, PT CO OF JOINT PAIN, PT STATES HAS OSTEOARTHRITIS AND WAS UNABLE TO GET OUT OF BED THIS AM. Nursing Sepsis Screen: No Definite Risk Source of Information: Patient, Family Exam Limitations: No Limitations History of Present Illness Date Seen by Provider: Apr 29, 2019 Time Seen by Provider: 09:30 Initial Comments 73-year-old white female presents with complaint of joint pain from her osteoarthritis. The patient states that she is having a hard time getting out of bed. Patient is under the care of Dr. Hernandez who has prescribed medication for osteoarthritis which she has not used. Patient denies fever or chill, trauma to the joints, change in medication, or associated nausea, vomiting, productive cough, headache, stiff neck or photophobia. Allergies and Home Medications Allergies Coded Allergies: clindamycin (Verified Allergy, Unknown, SEVERE DIARRHEA, 02/08/17) Home Medications Albuterol Sulfate 1 Puff Puff, 2 PUFF INH QID PRN for SHORTNESS OF BREATH, (Reported) Cetirizine HCl 10 Mg Tablet, 10 MG PO HS, (Reported) Fluticasone Propionate 16 Gm [place].susp, 1 SPRAY NS DAILY, (Reported) Metoprolol Tartrate 50 Mg Tablet, 50 MG PO BID, (Reported) Montelukast Sodium 10 Mg Tablet, 10 MG PO HS, (Reported) Multivit-Min/FA/Lycopene/Lut 1 Each Tablet, 1 TAB PO DAILY, (Reported) Naproxen Sodium 220 Mg Tablet, 440 MG PO HS PRN for PAIN-MILD, (Reported) TAKES 2 (220MG) TABLETS Omeprazole 20 Mg Capsule.dr, 20 MG PO BID, (Reported) Patient Home Medication List Home Medication List Reviewed: Yes Review of Systems Review of Systems Constitutional: no symptoms reported EENTM: no symptoms reported Respiratory: no symptoms reported Cardiovascular: no symptoms reported Gastrointestinal: no symptoms reported Genitourinary: no symptoms reported Musculoskeletal: see HPI, back pain, joint pain Skin: no symptoms reported Psychiatric/Neurological: No Symptoms Reported Hematologic/Lymphatic: No Symptoms Reported Immunological/Allergic: no symptoms reported Past Fibzvxh-Sbrtzp-Itngzj Hx Past Med/Social Hx: Reviewed Nursing Past Med/Soc Hx Patient Social History Alcohol Use: Denies Use Recreational Drug Use: No Smoking Status: Never a Smoker 2nd Hand Smoke Exposure: No Recent Foreign Travel: No Contact w/Someone Who Travel: No Recent Infectious Disease Expo: No Recent Hopitalizations: No Physical Abuse: No Sexual Abuse: No Immunizations Up To Date Tetanus Booster (TDap): More than 5yrs PED Vaccines UTD: Yes Seasonal Allergies Seasonal Allergies: Yes Past Medical History Surgeries: Yes Adenoidectomy, Orthopedic, Tonsillectomy Respiratory: Yes Asthma Currently Using CPAP: No Currently Using BIPAP: No Cardiac: Yes Hypertension Neurological: No Reproductive Disorders: No 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 Sexually Transmitted Disease: No Genitourinary: Yes UTI-Chronic Gastrointestinal: Yes Gastroesophageal Reflux Musculoskeletal: Yes (ARTHRITIS, CHRONIC PAIN) Arthritis Endocrine: No HEENT: No Cancer: No Psychosocial: No Integumentary: No Blood Disorders: No Family Medical History Arthritis Completed stroke Seizure disorder No Family History of: AIDS Abdominal aortic aneurysm [place]'s disease Alcoholism Alzheimer's disease Aphasia Asthma Cancer of mouth Cardiovascular disease Cataracts Colon cancer Congenital disease Congenital heart disease Coronary thrombosis Cystic fibrosis Deafness or hearing loss Dementia Diabetes mellitus Drug abuse Dysphasia Fibrocystic disease of breast Gastroenteritis Glaucoma Headache disorder Hypercholesterolemia Hypertension Infertility Kidney disease Myocardial infarction Neoplasm Not obtainable due to adoption Osteoporosis Parkinson's disease Prostate cancer Psychosocial problem Respiratory disorder Severe allergy Thyroid disease Tuberculosis Visual disorder No Pertinent Family Hx Physical Exam Vital Signs Vital Signs - First Documented 04/29/19 09:30 Temp 36.6 Pulse 65 Resp 18 B/P (MAP) 171/79 (109) Pulse Ox 98 Capillary Refill : Less Than 3 Seconds Height, Weight, BMI Height: 5'5.00" Weight: 230lbs. 4.8oz. [id number]; 33.00 BMI Method:Stated General Appearance: No Apparent Distress, WD/WN Eyes: Bilateral Eye Normal Inspection HEENT: Normal ENT Inspection Neck: Normal Inspection Respiratory: Lungs Clear Cardiovascular: Regular Rate, Rhythm Gastrointestinal: Normal Bowel Sounds Back: Normal Inspection Extremity: Other (degenerative joint disease) Neurologic/Psychiatric: Alert, Oriented x3, No Motor/Sensory Deficits Skin: Normal Color, Warm/Dry Progress/Results/Core Measures Suspected Sepsis Recent Fever Within 48 Hours: No Infection Criteria Present: None New/Unexplained Altered Menta: No Sepsis Screen: No Definite Risk SIRS Temperature: Pulse: 65 Respiratory Rate: 18 Blood Pressure 171 /79 Mean: 109 Results/Orders My Orders Orders - MIGUEL HERNANDEZ MD Knee, 3 Views, Bilateral (04/29/19 09:55) Ankle, Bilateral, 3 Views (04/29/19 09:55) Foot, Bilateral, 3 View (04/29/19 09:55) Vital Signs/I&O 04/29/19 09:30 Temp 36.6 Pulse 65 Resp 18 B/P (MAP) 171/79 (109) Pulse Ox 98 Capillary Refill : Less Than 3 Seconds Blood Pressure Mean: 109 Progress Note : Time: 11:10 Progress Note The patient's radiographs of the knees ankles and feet demonstrated degenerative arthritis. The patient was asked to employ Meloxicam that Dr. Nguyen had prescribed for her degenerative arthritis. She was asked follow closely with him next 3 days for follow-up evaluation. The patient's intertriginous rash beneath the breasts treated with a.m. medication Dr. Nguyen had employed for which she had not to utilize. Departure Impression Primary Impression: Arthritis Disposition: 01 HOME, SELF-CARE Condition: Unchanged Departure-Patient Inst. Decision time for Depature: 11:11 Referrals: ANAT NGUYEN DO (PCP/Family) Primary Care Physician Patient Instructions: Urinary Tract Infection, Child (DC) Add. Discharge Instructions: Usual medication for her degenerative arthritis Dr. Hernandez has prescribed. Close follow-up with Dr. Nguyen in 2-3 days. Return if any problems or questions. All discharge instructions reviewed with patient and/or family. Voiced understanding. MIGUEL HERNANDEZ MD Apr 29, 2019 11:09
[2019-04-29 11:35] VITALS: BP 171/79
== END 2019-04-29 11:50 | disposition home or self-care (01) ==
LOC: EDUNIT# 09:29 → ER 09:30
DX: M17.0 Bilateral primary osteoarthritis of knee (principal); M19.071 Primary osteoarthritis, right ankle and foot; M19.072 Primary osteoarthritis, left ankle and foot; M19.079 Primary osteoarthritis, unspecified ankle and foot; J45.909 Unspecified asthma, uncomplicated; I10 Essential (primary) hypertension; K21.9 Gastro-esophageal reflux disease without esophagitis; Z88.1 Allergy status to other antibiotic agents; Z79.51 Long term (current) use of inhaled steroids; Z90.89 Acquired absence of other organs

== ENCOUNTER → 2019-07-01 | Outpatient (CLI) | payer MEDICARE, MEDICAID ==
[~2019-07-01] MED LIST changes: +LIDOCAINE 1% INJ 20 ML 20 ML VIAL INJ ONE; -MONT10TA24 PO; +MONT10TA26 PO; -OMEP-280 PO; +OMEP20CA18 PO
--- NOTE | 2019-07-01 12:30 | Diagnostic Imaging Report ---
INDICATION: Right breast mass. Patient presents for ultrasound-guided biopsy. COMPARISON: Correlation is made with the prior breast ultrasound from 03/16/2019. FINDINGS: Sonographic interrogation of the inner right breast was performed. Specifically, the 3 to 3:30 location was evaluated. The previously noted cystic appearing lesion at this location 4 cm from the nipple is no longer visualized. No sonographic abnormality is seen on today's study; therefore, the procedure was canceled. IMPRESSION: The previously noted lesion at the 3:30 location of the right breast 4 cm from the nipple is no longer visualized. Biopsy was therefore canceled. The patient should return in February for bilateral screening mammography. ACR BI-RADS Category 2: Benign findings. Result letter will be mailed to the patient. Note: At least 10% of breast cancer is not imaged by mammography. Dictated by: Dictated on workstation # [id number]
== END ==
LOC: RAD 10:34
PROVIDERS: ATTEND Internal Medicine
DX: N63.14 Unspecified lump in the right breast, lower inner quadrant (principal)

== ENCOUNTER 2021-09-29 11:30 | Observation (INO) | payer MEDICARE, MEDICAID ==
[~2021-09-29] VITALS: Ht 152 cm; Wt 130.0 kg
[~2021-09-29 11:30] MED LIST changes: -LIDOCAINE 1% INJ 20 ML 20 ML VIAL INJ ONE; +MONT-40 PO; -MONT10TA26 PO; -SULF1TAB35 PO; +SULF1TAB38 PO
--- NOTE | 2021-09-29 12:01 | ED Neurological Problem ---
General Chief Complaint: Neuro-Stroke Like Symptoms Stated Complaint: POSS STROKE Nursing Triage Note: ARRIVED VIA AMB WITH COMPLAINTS OF BLURRED VISION AND DIZZINESS X3 WEEKS. STATES SHE WAS SENT OVER BY DR BERNABE BECAUSE THE MRI SHE HAD THIS AM SHOWS A STROKE. DR ROSADO AWARE OF PT BEING HERE. Source: patient, family Exam Limitations: no limitations History of Present Illness Date Seen by Provider: Sep 29, 2021 Time Seen by Provider: 11:55 Initial Comments Patient is a 76-year-old female who presents to the ED for double vision, blurry vision and dizziness. Symptoms have been ongoing for the past 3 to 4 weeks. She states gets intermittent dizzy when she stands up. She reports blurry vision bilateral with double vision. Double vision occurs when she has both eyes open. She states she gets relief when she closes her right eye. also states that she is leaning to the left with unsteady gait . she went to ophthalmology last week and was sent to get a MRI to rule out a potential stroke. Patient had an MRI performed today was concerning for a stroke. She denies of any unilateral weakness, sensory changes, facial droop, aphasia, dysarthria, increased confusion. No history of stroke. History of hypertension but denies diabetes, high cholesterol, smoking. No history of stroke, CHF, coronary artery disease, COPD or asthma. She denies of any recent upper respiratory infection Allergies and Home Medications Allergies Coded Allergies: clindamycin (Verified Allergy, Unknown, SEVERE DIARRHEA, 02/08/17) Patient Home Medication List Home Medication List Reviewed: Yes Albuterol Sulfate (Proair Hfa) 1 Puff Puff, 2 PUFF INH QID PRN for SHORTNESS OF BREATH, (Reported) Entered as Reported by: PAYAL OSORIO on 02/08/17 0847 Cetirizine HCl (Cetirizine HCl) 10 Mg Tablet, 10 MG PO HS, (Reported) Entered as Reported by: GUANAKITO EVANS on 02/08/17 1108 Fluticasone Propionate (Fluticasone Propionate) 16 Gm [place].susp, 1 SPRAY NS DAILY, (Reported) Entered as Reported by: PAYAL OSORIO on 01/18/17 0838 Metoprolol Tartrate (Metoprolol Tartrate) 50 Mg Tablet, 50 MG PO BID, (Reported) Entered as Reported by: GUANAKITO EVANS on 02/08/17 1110 Montelukast Sodium (Montelukast Sodium) 10 Mg Tablet, 10 MG PO HS, (Reported) Entered as Reported by: PAYAL OSORIO on 01/18/17 08 Multivit-Min/FA/Lycopene/Lut (Centrum Silver Tablet) 1 Each Tablet, 1 TAB PO DAILY, (Reported) Entered as Reported by: GUANAKITO EVANS on 02/08/17 111 Naproxen Sodium (Aleve) 220 Mg Tablet, 440 MG PO HS PRN for PAIN-MILD, (Reported) Entered as Reported by: GUANAKITO EVANS on 02/08/17 111 Omeprazole (Omeprazole) 20 Mg Capsule.dr, 20 MG PO BID, (Reported) Entered as Reported by: PAYAL OSORIO on 01/18/17 08 Review of Systems Review of Systems Constitutional: No chills, No diaphoresis Eyes: Blurred Vision; Denies Drainage, Denies Decreased Acuity, Denies Inflammation, Denies Photophobia; Vision Changes Ears, Nose, Mouth, Throat: denies ear pain, denies ear discharge, denies nose discharge, denies mouth pain Respiratory: No cough, No dyspnea on exertion Cardiovascular: No chest pain Gastrointestinal: No abdominal pain, No nausea, No vomiting Musculoskeletal: No back pain, No joint pain Skin: No change in color, No change in hair/nails Psychiatric/Neurological: Denies Anxiety All Other Systems Reviewed Negative Unless Noted: Yes Past Ihybjwe-Rvuxrx-Bdwydc Hx Patient Social History Smoking Status: Never a Smoker Substance use?: No Alcohol Use?: No Immunizations Up To Date Tetanus Booster (TDap): More than 5yrs PED Vaccines UTD: Yes COVID19 Vaccine Art Model: MODERNA Seasonal Allergies Seasonal Allergies: Yes Past Medical History Surgeries: Yes Adenoidectomy, Orthopedic, Tonsillectomy Respiratory: Yes Asthma Currently Using CPAP: No Currently Using BIPAP: No Cardiac: Yes Hypertension Neurological: No Reproductive Disorders: No 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 Sexually Transmitted Disease: No Genitourinary: Yes UTI-Chronic Gastrointestinal: Yes Gastroesophageal Reflux Musculoskeletal: Yes (ARTHRITIS, CHRONIC PAIN) Arthritis Endocrine: No HEENT: No Cancer: No Psychosocial: No Integumentary: No Blood Disorders: No Family Medical History Arthritis Completed stroke Seizure disorder No Family History of: AIDS Abdominal aortic aneurysm [place]'s disease Alcoholism Alzheimer's disease Aphasia Asthma Cancer of mouth Cardiovascular disease Cataracts Colon cancer Congenital disease Congenital heart disease Coronary thrombosis Cystic fibrosis Deafness or hearing loss Dementia Diabetes mellitus Drug abuse Dysphasia Fibrocystic disease of breast Gastroenteritis Glaucoma Headache disorder Hypercholesterolemia Hypertension Infertility Kidney disease Myocardial infarction Neoplasm Not obtainable due to adoption Osteoporosis Parkinson's disease Prostate cancer Psychosocial problem Respiratory disorder Severe allergy Thyroid disease Tuberculosis Visual disorder No Pertinent Family Hx Physical Exam Vital Signs Vital Signs - First Documented 09/29/21 11:30 Temp 36.3 Pulse 80 Resp 16 B/P (MAP) 143/59 (87) Pulse Ox 96 O2 Delivery Room Air Capillary Refill : Less Than 3 Seconds Height, Weight, BMI Height: 5'5.00" Weight: 230lbs. 4.8oz. [id number]; 56.00 BMI Method:Stated General Appearance: WD/WN, no apparent distress HEENT: PERRL/EOMI, normal ENT inspection, TMs normal, pharynx normal, other (mild right exotropia. 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 II-XII nml as tested, no motor/sensory deficits, alert, normal mood/affect, oriented x 3 Skin: normal color, warm/dry Stroke Onset of Symptoms Onset of Symptoms: Yes (3-4 weeks ago) NIH Stroke Scale Assessment Select: Initial Level of Consciousness: 0=Alert (0), Level of Consciousness-Questions: 0=Answers both month/age (0), LOC Commands: 0=Performs both tasks (0), Gaze: Partial Gaze Palsy (1), Visual [place]: 0=No visual loss (0), Facial Movement (Facial Paresis): 0=Normal symmetrical mnt (0), Motor Function-Arms Right: 0=No drift (0), Motor Function-Arms Left: 0=No drift (0), Motor Function-Legs Right: 0=No drift (0), Motor Function- Legs Left: 0=No drift (0), Limb Ataxia: 0=Absent (0), Sensory: 0=Normal:no loss (0), Best Language: 0=No aphasia (0), Dysarthria: 0=Normal (0), Extinction & Inattention: 0=No abnormality (0), Total: 1 Progress/Results/Core Measures Results/Orders Lab Results Laboratory Tests Test 09/29/21 11:47 09/29/21 12:03 Range/Units White Blood Count 8.3 4.3-11.0 10^3/uL Red Blood Count 4.63 3.80-5.11 10^6/uL Hemoglobin 14.4 11.5-16.0 g/dL Hematocrit 42 35-52 % Mean Corpuscular Volume 90 80-99 fL Mean Corpuscular Hemoglobin 31 25-34 pg Mean Corpuscular Hemoglobin Concent 34 32-36 g/dL Red Cell Distribution Width 13.2 10.0-14.5 % Platelet Count 189 130-400 10^3/uL Mean Platelet Volume 9.8 9.0-12.2 fL Immature Granulocyte % (Auto) 0 % Neutrophils (%) (Auto) 67 42-75 % Lymphocytes (%) (Auto) 22 12-44 % Monocytes (%) (Auto) 8 0-12 % Eosinophils (%) (Auto) 2 0-10 % Basophils (%) (Auto) 1 0-10 % Neutrophils # (Auto) 5.5 1.8-7.8 10^3/uL Lymphocytes # (Auto) 1.8 1.0-4.0 10^3/uL Monocytes # (Auto) 0.6 0.0-1.0 10^3/uL Eosinophils # (Auto) 0.2 0.0-0.3 10^3/uL Basophils # (Auto) 0.1 0.0-0.1 10^3/uL Immature Granulocyte # (Auto) 0.0 0.0-0.1 10^3/uL Prothrombin Time 13.1 12.2-14.7 SEC INR Comment 1.0 0.8-1.4 Activated Partial Thromboplast Time 31 24-35 SEC Sodium Level 140 135-145 MMOL/L Potassium Level 4.4 3.6-5.0 MMOL/L Chloride Level 105 98-107 MMOL/L Carbon Dioxide Level 25 21-32 MMOL/L Anion Gap 10 5-14 MMOL/L Blood Urea Nitrogen 25 H 7-18 MG/DL Creatinine 1.52 H 0.60-1.30 MG/DL Estimat Glomerular Filtration Rate 35 BUN/Creatinine Ratio 16 Glucose Level 106 H 70-105 MG/DL Calcium Level 9.6 8.5-10.1 MG/DL Corrected Calcium 9.7 8.5-10.1 MG/DL Total Bilirubin 0.6 0.1-1.0 MG/DL Aspartate Amino Transf (AST/SGOT) 16 5-34 U/L Alanine Aminotransferase (ALT/SGPT) 19 0-55 U/L Alkaline Phosphatase 112 40-136 U/L Troponin I < 0.028 <0.028 NG/ML Total Protein 7.5 6.4-8.2 GM/DL Albumin 3.9 3.2-4.5 GM/DL Urine Color ORANGE Urine Clarity SL CLOUDY Urine pH 6.0 5-9 Urine Specific [place] >=1.030 1.016-1.022 Urine Protein 1+ H NEGATIVE Urine Glucose (UA) NEGATIVE NEGATIVE Urine Ketones NEGATIVE NEGATIVE Urine Nitrite POSITIVE H NEGATIVE Urine Bilirubin 1+ H NEGATIVE Urine Urobilinogen 1.0 < = 1.0 MG/DL Urine Leukocyte Esterase 2+ H NEGATIVE Urine RBC (Auto) TRACE-I H NEGATIVE Urine RBC 2-5 H /HPF Urine WBC >100 H /HPF Urine Squamous Epithelial Cells 10-25 H /HPF Urine Crystals NONE /LPF Urine Bacteria LARGE H /HPF Urine Casts NONE /LPF Urine Mucus NEGATIVE /LPF Urine Culture Indicated YES Glucometer 99 70-110 MG/DL Micro Results Microbiology 09/29/21 Urine Culture - Preliminary, Resulted Escherichia coli Nonenterococcus (Chains Cocci) My Orders Orders - KATLYN LNIG PA Cbc With Automated Diff (09/29/21 11:58) Protime With Inr (09/29/21 11:58) Partial Thromboplastin Time (09/29/21 11:58) Comprehensive Metabolic Panel (09/29/21 11:58) Troponin I [place] (09/29/21 11:58) Ua Culture If Indicated (09/29/21 11:58) Chest 1 View, Ap/Pa Only (09/29/21 11:58) Ekg Tracing (09/29/21 11:58) Accucheck Stat ONCE (09/29/21 11:58) Ed Iv/Invasive Line Start (09/29/21 11:58) Vital Signs Stroke Patient Q15M (09/29/21 11:58) Monitor-Rhythm Ecg Trace Only (09/29/21 11:58) Dysphagia Screening Tool Q10MX1 (09/29/21 11:58) Lipid Panel (09/30/21 06:00) Ct Head Wo-R/O Stroke (09/29/21 12:00) Urine Culture (09/29/21 12:03) Ct Angio Head/Neck (09/29/21 12:45) Accucheck Stat ONCE (09/29/21 12:47) Ed Iv/Invasive Line Start (09/29/21 12:47) Ed Iv/Invasive Line Start (09/29/21 12:47) Vital Signs Stroke Patient Q15M (09/29/21 12:47) O2 (09/29/21 12:47) Intake & Output 06,14,22 (09/29/21 12:47) Dysphagia Screening Tool Q10MX1 (09/29/21 12:47) Post Thrombolytic Adminstratio (09/29/21 12:47) Iohexol Injection (Omnipaque 350 Mg/Ml 1 (09/29/21 13:00) Received Contrast (Hold Metformin- Contr (09/29/21 13:00) Ns (Ivpb) (Sodium Chloride 0.9% Ivpb Bag (09/29/21 13:00) Ed Admission (Communication) (09/29/21 14:20) Medications Given in ED Vital Signs/I&O 09/29/21 11:30 Temp 36.3 Pulse 80 Resp 16 B/P (MAP) 143/59 (87) Pulse Ox 96 O2 Delivery Room Air Blood Pressure Mean: 87 Comment Sinus bradycardia with first-degree AV block, pattern consistent with pulmonary disease, inferior myocardial infarction probable old, 59 bpm, QRS duration 98 MS, QTc 421 MS Departure Communication (PCP) Patient is a 76-year-old female presents ED for concern for stroke. Patient had an outpatient MRI that was positive for stroke lacunar infarct in the right frontal lobe periventricular area. . Patient Was sent to the ED for furthur evaluation. She states she has been having some dizziness, double vision off b alance and weakness. Patient is a poor historian. She states symptoms over the past 3 to 4 weeks. She is wanting to keep her right eye closed. She saw ophthalmology last week was concerning for subtle exotropia in the right eye and possible 3rd nerve palsy. On exam NIH is 1 secondary to the mild palsy in the right eye. She has no unilateral muscle weakness, sensory changes, facial droop, aphasia or dysarthria. She is wanting to keep her right eye closed secondary to the double vision. She has no visual loss. CT scan of the head was unremarkable. CT angio of the head and neck negative for any large vessel occlusion. Received MRI from [facility] that shows acute to subacute tiny lacunar infarct within the right frontal lobe periventricular area. This was discussed with neurology Dr. Gonzalez at [facility] who states patient is not a tPA candidate. Due to the length of symptoms can be admitted to our facility for stroke work-up. Would likely benefit with echocardiogram, lab work and further evaluation. Neurology outpatient follow-up was recommended. Vital signs stable. Lab work was otherwise unremarkable besides kidney function changes. Urinalysis concerning for UTI. Patient Was given a dose of Rocephin. Patient was discussed with Dr. Benson who accepts admission for stroke workup. Impression Primary Impression: Stroke Additional Impression: Double vision Disposition: ADMITTED INPATIENT Condition: Stable Admissions Decision to Admit Reason: Admit from ER (General) Decision to Admit/Date: Sep 29, 2021 Time/Decision to Admit Time: 13:59 Departure-Patient Inst. Referrals: ANAT BERNABE DO (PCP/Family) Primary Care Physician KATLYN LING Sep 29, 2021 12:01
[2021-09-29 12:10] LABS: BASOPHILS # (AUTO) 0.1 10^3/uL (0.0-0.1); BASOPHILS % (AUTO) 1 % (0-10); EOSINOPHILS # (AUTO) 0.2 10^3/uL (0.0-0.3); EOSINOPHILS % (AUTO) 2 % (0-10); HEMATOCRIT 42 % (35-52); HEMOGLOBIN 14.4 g/dL (11.5-16.0); LYMPHOCYTES # (AUTO) 1.8 10^3/uL (1.0-4.0); LYMPHOCYTES % (AUTO) 22 % (12-44); MEAN CORPUSCULAR HEMOGLOBIN 31 pg (25-34); MEAN CORPUSCULAR HGB CONC 34 g/dL (32-36); MEAN CORPUSCULAR VOLUME 90 fL (80-99); MEAN PLATELET VOLUME 9.8 fL (9.0-12.2); MONOCYTES # (AUTO) 0.6 10^3/uL (0.0-1.0); MONOCYTES % (AUTO) 8 % (0-12); NEUTROPHILS # (AUTO) 5.5 10^3/uL (1.8-7.8); NEUTROPHILS % (AUTO) 67 % (42-75); PLATELET COUNT 189 10^3/uL (130-400); WHITE BLOOD COUNT 8.3 10^3/uL (4.3-11.0)
[2021-09-29 12:13] LABS: ALBUMIN 3.9 GM/DL (3.2-4.5); CHLORIDE 105 MMOL/L (98-107); POTASSIUM 4.4 MMOL/L (3.6-5.0); SODIUM 140 MMOL/L (135-145)
[2021-09-29 12:14] LABS: CLARITY,URINE SL CLOUDY; COLOR,URINE ORANGE; GLUCOSE, URINE (UA) NEGATIVE (NEGATIVE); KETONES,URINE NEGATIVE (NEGATIVE); LEUKOCYTE ESTERASE ,URINE 2+ (NEGATIVE); NITRITE,URINE POSITIVE (NEGATIVE); PROTEIN,URINE 1+ (NEGATIVE)
[2021-09-29 12:14] LABS: CALCIUM 9.6 MG/DL (8.5-10.1)
[2021-09-29 12:15] LABS: GLUCOSE 106 MG/DL (70-105); PROTHROMBIN TIME PATIENT 13.1 SEC (12.2-14.7); TOTAL PROTEIN 7.5 GM/DL (6.4-8.2)
[2021-09-29 12:16] LABS: CARBON DIOXIDE 25 MMOL/L (21-32)
[2021-09-29 12:17] LABS: BILIRUBIN,TOTAL 0.6 MG/DL (0.1-1.0)
[2021-09-29 12:19] LABS: ALKALINE PHOSPHATASE 112 U/L (40-136); CREATININE SERUM 1.52 MG/DL (0.60-1.30); GFR ESTIMATED 35
[2021-09-29 12:20] LABS: BUN/CREATININE RATIO 16
[2021-09-29 12:22] LABS: ALANINE AMINOTRANSFERASE 19 U/L (0-55)
[2021-09-29 12:26] LABS: BACTERIA,URINE LARGE /HPF; BILIRUBIN,URINE 1+ (NEGATIVE); WBC,URINE >100 /HPF
--- NOTE | 2021-09-29 12:41 | Diagnostic Imaging Report ---
PROCEDURE: CT head wo r/o stroke. TECHNIQUE: Multiple contiguous axial images were obtained through the brain without the use of intravenous contrast. Auto Exposure Controls were utilized during the CT exam to meet ALARA standards for radiation dose reduction. INDICATION: Blurred vision and dizziness for 3 weeks. Comparison is made with prior head CT from 03/16/2019. The ventricles and sulci are consistent with the patient's age. There is moderate periventricular low-attenuation consistent with chronic microvascular ischemia. There is no midline shift. No acute intra-axial or extra-axial hemorrhage is detected. Old lacunar infarct right thalamus is noted. IMPRESSION: Chronic changes. No acute intracranial process is detected. Dictated by: Dictated on workstation # [id number]
--- NOTE | 2021-09-29 12:41 | Diagnostic Imaging Report ---
CLINICAL INDICATION: Patient with possible stroke. EXAM: Portable chest x-ray upright view. COMPARISON: Portable chest x-ray dated 03/15/2019. FINDINGS: Lungs/pleura: Lungs are clear. There is no pneumothorax. There is no pleural effusion. Mediastinum: Unremarkable. Pulmonary vasculature: Unremarkable. Heart: Unremarkable. Bones/extrathoracic soft tissue: There are degenerative spurs involving the thoracic spine.. IMPRESSION: There is no radiographic evidence of acute cardiopulmonary process. Dictated by: Dictated on workstation # [id number]
[2021-09-29] MEDS ORDERED: IOHEXOL 350 MG/ML 100 ML (OMNIPAQUE 350) VIAL IV ONE (13:00)
[2021-09-29] MEDS ORDERED: NS 100 ML (IVPB) BAG IV ONE (13:00)
[2021-09-29] MEDS ORDERED: HOLD METFORMIN - RECEIVED CONTRAST 20 ML VIAL IV SCH (13:00)
--- NOTE | 2021-09-29 13:49 | Diagnostic Imaging Report ---
Clinical Indication: The patient complains of blurry vision and dizziness x3 weeks. The patient had an MRI that showed a stroke this morning. Exams: 1: Head CT with and without IV contrast. Auto Exposure Controls were utilized during the CT exam to meet ALARA standards for radiation dose reduction. 2: CT angiogram of the head and neck performed with 100 cc of Omnipaque 350 IV contrast. Sagittal and coronal MIP reformations were created for better visualization of vascular anatomy. CT angiogram was post-processed using RAPID LVO detection to include quantitative measurements of cerebral blood flow and automated results notification to the stroke and/or neurointerventional team. Comparison: Head CT without contrast dated 09/29/2021.. Findings: Head CT: There is no abnormal IV contrast enhancement. There is no definite transcortical low density changes related to infarct. There are multiple patchy and confluent areas of low-density involving the white matter of both cerebral hemispheres which may be related to chronic small vessel ischemic disease. If the patient had an infarct on prior MRI, low-density white matter changes may obscure the infarct, depending on its location. There is no brain herniation or midline shift. Nonspecific thickening of the infundibulum measuring roughly 6 mm in width. There is no definite mass of the sellar or suprasellar region. Partial empty sella turcica is noted. There is no intracranial hemorrhage. There is no hydrocephalus. Basal cisterns are unremarkable. The extracranial soft tissues, skull, and orbits are unremarkable. Paranasal sinuses and mastoid air cells are clear. CT Angiogram: Three-vessel aortic arch is seen. Streak artifact obscures portions of the proximal right subclavian artery. There is mild stenosis. The remainder of the right subclavian artery is patent. The brachiocephalic artery and left subclavian artery are patent. The right common carotid artery, right ECA, cervical right ICA are patent. There is artifact slightly obscuring the mid left common carotid artery. Otherwise, the left common carotid artery, left ECA, and cervical left ICA are patent. The petrous, cavernous, and supraclinoid ICA are patent. The bilateral ACAs and distal branches are patent. The bilateral MCAs and distal branches are patent. The bilateral cervical vertebral arteries are patent. The intradural bilateral vertebral arteries, PICA, basilar artery, bilateral superior and cerebellar arteries are patent. Right posterior communicating artery is seen. The bilateral [employer] and distal branches are patent. Dural venous sinuses are patent. The neck soft tissue structures are unremarkable. Visualized upper lung hancock show mild atelectasis. There is a 7 mm nodule involving the right upper lobe. IMPRESSION: 1: There is no dense vessel sign seen. There is no gross CT evidence of interval acute cerebral infarction, intracranial hemorrhage, or mass seen. The diffuse low attenuation changes throughout the brain parenchyma may possibly obscure more subtle findings. If the patient had infarct on outside MRI, this may be below resolution of CT or obscured by brain parenchymal low density. 2: Chronic small vessel ischemic disease. 3: CT angiogram of the [place] and neck shows no large vessel occlusion, intravascular thrombosis, significant stenosis, vascular malformation, or aneurysm. Results of this report were discussed with ZOILA Peterson via the telephone on 09/29/2021 at 1330 hours. Dictated by: Dictated on workstation # [id number]
[2021-09-29] MEDS ORDERED: cefTRIAXone 1 GM PRE-MIX 50 ML IV STA (14:25)
[2021-09-29] MEDS ORDERED: MILK OF MAGNESIA 400 MG/5 ML 30 ML UDC PO PRN (15:00)
[2021-09-29] MEDS ORDERED: ENOXAPARIN 40 MG/0.4 ML (LOVENOX) SYR SC SCH ×2 (15:00→16:00)
[2021-09-29] MEDS ORDERED: ONDANSETRON 4 MG/2 ML (SDV) Z0FRAN IV PRN (15:00)
[2021-09-29] MEDS ORDERED: ANTACID SUSP 30 ML UDC (MYLANTA) PO PRN (15:00)
[2021-09-29] MEDS ORDERED: ACETAMINOPHEN 325 MG TABLET PO PRN (15:00)
[2021-09-29] MEDS ORDERED: BENZONATATE 100 MG (TESSALON) CAPSULE PO PRN (15:00)
[2021-09-29] MEDS ORDERED: MELATONIN 3 MG TABLET PO PRN (15:00)
--- NOTE | 2021-09-29 15:21 | Speech Therapy Progress Note ---
Therapy Progress Note Speech pathology received the consultation for a speech and language evaluation, as well as, a clinical bedside swallowing assessment. Speech pathology attempted the evaluation at 1518. At this time, the patient is completing an evaluation with OT. The patient is receiving a regular consistency diet with thin liquids. ST will complete the evaluations as able and appropriate. ROSARIO HECTOR Sep 29, 2021 15:21
--- NOTE | 2021-09-29 15:38 | Physical Therapy Evaluation ---
PT Evaluation-General Medical Diagnosis Admission Date Sep 29, 2021 at 14:21 Medical Diagnosis: stroke-like symptoms Onset Date: Sep 29, 2021 Therapy Diagnosis Therapy Diagnosis: impaired mobility, balance Height/Weight Height (Feet): 5 Height (Inches): 5.00 Weight (Pounds): 230 Weight (Ounces): 4.8 Referral Physician: Kelley Reason for Referral: Evaluation/Treatment Medical History Pertinent Medical History: Arthritis, GERD, HTN, Neuropathy Additional Medical History Past Medical History Surgeries: Yes Adenoidectomy, Orthopedic, Tonsillectomy Respiratory: Yes Asthma Currently Using CPAP: No Currently Using BIPAP: No Cardiac: Yes Hypertension Neurological: No Reproductive Disorders: No Female Reproductive Disorders: 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 0-Kdurinidke-wgmdbiu completes the activity by him/herself with no assistance from a helper. 5-Set-up or Clean-up Assistance-helper sets up or cleans up; patient completes activity. [place] assists only prior to or following the activity. 4-Supervision or Touching Assistance-helper provides verbal cues and/or touching/steadying and/or contact guard assistance as patient completes activity. Assistance may be provided throughout the activity or intermittently. 3-Partial/Moderate Assistance-helper does LESS THAN HALF the effort. [place] lifts, holds or supports trunk or limbs, but provides less than half the effort. 2-Substantial/Maximal Assistance-helper does MORE THAN HALF the effort. [place] lifts or holds trunk or limbs and provides more than half the effort. 1-Hkbwoniel-rhwbls does ALL the effort. Patient does none of the effort to complete the activity. Or, the assistance of 2 or more helpers is required for the patient to complete the activity. If activity was not attempted, code reason: 7-Patient Refused. 9-Not Applicable-not attempted and the patient did not perform the activity before the current illness, exacerbation or injury. 10-Not Attempted due to Environmental Limitations-(lack of equipment, weather restraints, etc.). 88-Not Attempted due to Medical Conditions or Safety Concerns. Bed Mobility: 6 Transfers (B,C,W/C): 6 Gait: 6 Stairs: 6 Indoor Mobility (Ambulation): Independent Stairs: Independent quad cane PT Evaluation-Current Subjective Patient in bed pre tx, agrees to PT, has no complaints of pain. Patient keeps her right eye closed to help with double vision Pt/Family Goals to be independent at home Objective Patient Orientation: Person, Place, Situation ROM/Strength ROM Lower Extremities limited due to arthritis Strength Lower Extremities grossly 4/5 BLE Sensory Vision: Hearing: Functional Sensation Right Lower Extremit: Intact Sensation Left Lower Extremity: Intact Transfers Roll Left to Right (QC): 6 Sit to Lying (QC): 6 Lying to Sitting/Side of Bed(Q: 6 Sit to Stand (QC): 4 Chair/Hdv-aq-Lpiyp Xfer(QC): 4 Gait Does the Patient Walk?: Yes Mode of Locomotion: Walk Anticipated Mode of Locomotion: Walk Walk 10 feet (QC): 4 Distance: 20' Gait Assistive Device: Cane Small Base Quad Comments/Gait Description Patient ambulated 20' with a quad cane with CGA, patient does have some unsteadiness and needs steadying assist but no complete LOB. Balance Sitting Static: Normal Sitting Dynamic: Normal Standing Static: Fair Standing Dynamic: Poor Assessment/Needs Patient sitting EOB post tx to continue with OT. Patient has impaired mobility and balance. She needs somebody with her during transfers and ambulation due to unsteadiness. Rehab Potential: Fair PT Usp Goals Usp Goals PT Warp Spooler Goals Time Frame: Oct 06, 2021 Roll Left & Right (QC): 6 Sit to Lying (QC): 6 Lying-Sitting on Side/Bed(QC): 6 Sit to Stand (QC): 4 (SBA) Chair/Vmw-ml-Vmqfc Xfer(QC): 4 (SBA) Walk 10 feet (QC): 4 (SBA) Walk 50ft with 2 Turns (QC): 4 (SBA) PT Plan Problem List Problem List: Activity Tolerance, Functional Strength, Safety, Balance, Gait, Transfer, Bed Mobility, ROM Treatment/Plan Treatment Plan: Continue Plan of Care Treatment Plan: Bed Mobility, Education, Functional Activity Stephani, Functional Strength, Gait, Safety, Therapeutic Exercise, Transfers Treatment Duration: Oct 06, 2021 Frequency: 6 times per week Estimated Hrs Per Day: .25 hour per day Patient and/or Family Agrees t: Yes Safety Risks/Education Patient Education: Gait Training, Transfer Techniques, Correct Positioning, Safety Issues Teaching Recipient: Patient Teaching Methods: Demonstration, Discussion Response to Teaching: Reinforcement Needed Discharge Recommendations Plan Patient will perform bed mobility and transfer training, balance and endurance training, functional strengthening, stair training, gait training, and education, to improve functional mobility and independence at home. Therapy Discharge Recommendati: Scheduled Assistance, Home & Family, Post Acute PT Time/GCodes Time In: 1504 Time Out: 1514 Total Billed Treatment Time: 10 Total Billed Treatment 1 visit JAMIL LANDAVERDE PT Sep 29, 2021 15:38
[2021-09-29 15:44] VITALS: BP 139/83
--- NOTE | 2021-09-29 15:52 | Occupational Therapy Eval ---
OT Evaluation-General/PLF Medical Diagnosis Admission Date Sep 29, 2021 at 14:21 Medical Diagnosis: stroke-like symptoms Onset Date: Sep 29, 2021 Therapy Diagnosis Therapy Diagnosis: decreased ADL status Height/Weight Height (Feet): 5 Height (Inches): 5.00 Weight (Pounds): 230 Weight (Ounces): 4.8 Referral Physician: Kelley Referral Reason: Evaluation/Treatment Medical History Pertinent Medical History: Arthritis, GERD, HTN, Neuropathy Additional Medical History Arthritis, GERD, HTN, and neuropathy. Current History ED c/o stoke-like symptoms (dizziness and blurred vision for past 3weeks) on 09/29/2021. Social History Home: Single Level Current Living Status: Spouse Entry Into Home: Ramp, Stairs With Railing Steps Into Home: 2 ADL-Prior Level of Function SCALE: Activities may be completed with or without assistive devices. 7-Xycwktijna-nrblyfz completes the activity by him/herself with no assistance from a helper. 5-Set-up or Clean-up Assistance-helper sets up or cleans up; patient completes activity. [place] assists only prior to or following the activity. 4-Supervision or Touching Assistance-helper provides verbal cues and/or touching/steadying and/or contact guard assistance as patient completes activity. Assistance may be provided throughout the activity or intermittently. 3-Partial/Moderate Assistance-helper does LESS THAN HALF the effort. [place] lifts, holds or supports trunk or limbs, but provides less than half the effort. 2-Substantial/Maximal Assistance-helper does MORE THAN HALF the effort. [place] lifts or holds trunk or limbs and provides more than half the effort. 2-Qdppjqhrw-ixvrjq does ALL the effort. Patient does none of the effort to complete the activity. Or, the assistance of 2 or more helpers is required for the patient to complete the activity. If activity was not attempted, code reason: 7-Patient Refused. 9-Not Applicable-not attempted and the patient did not perform the activity before the current illness, exacerbation or injury. 10-Not Attempted due to Environmental Limitations-(lack of equipment, weather restraints, etc.). 88-Not Attempted due to Medical Conditions or Safety Concerns. ADL PLOF Comments Pt reports being IND in ADLs for the most part prior to incident, spouse assists when needed. She uses a quad cane to ambulate both within her home and outside her home (slightly unsteady at PLOF per pt/ report). She has a walk in shower with a SC. She says she has a ramp going into house, but she prefers to go up the two steps "for the exercise." Self Care: Needed Some Help Functional Cognition: Independent DME/Equipment: Bath Bench, Shower (walk-in) OT Current Status Subjective Pt sitting up in bed prior to OT eval/tx. Pt kept R eye closed throughout session, reports having double vision when having it open. Pt agreeable to OT eval/tx. Mental Status/Objective Patient Orientation: Person, Situation, Normal For Age Attachments: IV Current Glasses/Contacts: Yes Hand Dominance: Right Upper Extremity ROM WFL Upper Extremity Sensation Pt reports no numbness or tingling Upper Extremity Strength grossly 3/5 ADL-Treatment Lower Body Dressing (QC): 6 (Per clinical judgement since pt was able to don/doff gripper socks IND) On/Off Footwear (QC): 6 (don/dof gripper socks seated EOB) Other Treatments Pt sitting in bed prior to OT eval/tx. Pt provided information about PLOF and participated in UE screen. Pt ambulated 20' with quad cane, CGA, returned to seated EOB with CGA. Pt IND donned/doffed gripper socks while seated EOB. Per pt's and pt, pt is at baseline with ADLs and mobility, as pt is slightly unsteady at PLOF. Post tx, pt left seated in bed, call light within reach, and all needs met. Education OT Patient Education: Correct positioning, Energy conservation, Modified ADL techniques, Progress toward Goal/Update tx plan, Purpose of tx/functional activities, Rehab process Teaching Recipient: Patient Teaching Methods: Discussion Response to Teaching: Verbalize Understanding OT Rail Crew Member Goals Retirement Goals 1=Demonstrate adherence to instructed precautions during ADL tasks. 2=Patient will verbalize/demonstrate understanding of assistive devices/modifications for ADL. 3=Patient will improve strength/tolerance for activity to enable patient to perform ADL's. OT Education/Plan Problem List/Assessment Assessment: No Skilled OT Needs ID'd No skilled OT Services indicated at this time, as pt is independent with ADLs, and at baseline with functional mobility. D/C from OT. Discharge Recommendations Plan/Recommendations: Discharge/Goals Met Treatment Plan/Plan of Care Patient would benefit from OT for education, treatment and training to promote independence in ADL's, mobility, safety and/or upper extremity function for ADL's. Plan of Care: ADL Retraining, Functional Mobility Treatment Duration: Sep 29, 2021 Frequency: 1 time per week (eval only) Estimated Hrs Per Day: .25 hour per day Agreement: Yes Rehab Potential: Fair Time/GCodes Start Time: 15:05 Stop Time: 15:19 Total Time Billed (hr/min): 14 Billed Treatment Time 1, EVYURI PARSON OT Sep 29, 2021 15:52
[2021-09-29] MEDS ORDERED: RT-ALBUTEROL SULF 2.5 MG/3 ML PRE-MIX VIAL INH PRN (16:00)
[2021-09-29 16:33] VITALS: BP 121/77
[2021-09-29 19:22] VITALS: BP 136/81
[2021-09-30] VITALS: BP 133/80
[2021-09-30 03:46] VITALS: BP 133/77
[2021-09-30 05:57] LABS: HEMATOCRIT 38 % (35-52); HEMOGLOBIN 12.9 g/dL (11.5-16.0); MEAN CORPUSCULAR HEMOGLOBIN 31 pg (25-34); MEAN CORPUSCULAR HGB CONC 34 g/dL (32-36); MEAN CORPUSCULAR VOLUME 91 fL (80-99); MEAN PLATELET VOLUME 9.9 fL (9.0-12.2); PLATELET COUNT 165 10^3/uL (130-400); WHITE BLOOD COUNT 7.8 10^3/uL (4.3-11.0)
[2021-09-30 06:55] LABS: POTASSIUM 3.8 MMOL/L (3.6-5.0)
[2021-09-30 06:56] LABS: CALCIUM 9.4 MG/DL (8.5-10.1)
[2021-09-30 07:00] LABS: CREATININE SERUM 1.47 MG/DL (0.60-1.30)
[2021-09-30 07:28] VITALS: BP 139/73
[2021-09-30] MEDS ORDERED: ASPIRIN 325 MG (5 GR) TABLET PO SCH (09:00)
--- NOTE | 2021-09-30 09:23 | Physical Therapy Daily Note ---
PT Daily Note-Current Subjective Patient is very agreeable to participate with PT. Mental Status Patient Orientation: Normal For Age Transfers SCALE: Activities may be completed with or without assistive devices. 5-Mxejuswncb-nroshsu completes the activity by him/herself with no assistance from a helper. 5-Set-up or Clean-up Assistance-helper sets up or cleans up; patient completes activity. [place] assists only prior to or following the activity. 4-Supervision or Touching Assistance-helper provides verbal cues and/or touching/steadying and/or contact guard assistance as patient completes activity. Assistance may be provided throughout the activity or intermittently. 3-Partial/Moderate Assistance-helper does LESS THAN HALF the effort. [place] lifts, holds or supports trunk or limbs, but provides less than half the effort. 2-Substantial/Maximal Assistance-helper does MORE THAN HALF the effort. [place] lifts or holds trunk or limbs and provides more than half the effort. 0-Gwefyuyxm-njiaye does ALL the effort. Patient does none of the effort to complete the activity. Or, the assistance of 2 or more helpers is required for the patient to complete the activity. If activity was not attempted, code reason: 7-Patient Refused. 9-Not Applicable-not attempted and the patient did not perform the activity before the current illness, exacerbation or injury. 10-Not Attempted due to Environmental Limitations-(lack of equipment, weather restraints, etc.). 88-Not Attempted due to Medical Conditions or Safety Concerns. Lying to Sitting/Side of Bed(Q: 6 Sit to Stand (QC): 4 Chair/Uvm-ta-Hvgnj Xfer(QC): 4 Gait Training Distance: 250' Walk 10 feet (QC): 4 Walk 50 ft with 2 Turns(QC): 4 Walk 150 ft (QC): 4 Gait Assistive Device: Cane Small Base Quad slightly unsteady with self correct Assessment Patient up in recliner with needs met. Patient highly motivated with progress and desires to return to home soon. PT Loom Inspector Goals Mcfp Goals PT Loom Inspector Goals Time Frame: Oct 06, 2021 Roll Left & Right (QC): 6 Sit to Lying (QC): 6 Lying-Sitting on Side/Bed(QC): 6 Sit to Stand (QC): 4 (SBA) Chair/Qdq-ct-Jwxkt Xfer(QC): 4 (SBA) Walk 10 feet (QC): 4 (SBA) Walk 50ft with 2 Turns (QC): 4 (SBA) PT Plan Treatment/Plan Treatment Plan: Continue Plan of Care Treatment Plan: Bed Mobility, Education, Functional Activity Stephani, Functional Strength, Gait, Safety, Therapeutic Exercise, Transfers Treatment Duration: Oct 06, 2021 Frequency: 6 times per week Estimated Hrs Per Day: .25 hour per day Patient and/or Family Agrees t: Yes Time/GCodes Time In: 834 Time Out: 844 Total Billed Treatment Time: 10 Total Billed Treatment 1 visit FA 10 min RYAN EMEKS PT Sep 30, 2021 09:23
[2021-09-30 11:34] VITALS: BP 135/81
[2021-09-30] MEDS ORDERED: ATOR80TA76 PO (11:43)
[2021-09-30] MEDS ORDERED: ASPI-999 PO (11:43)
--- NOTE | 2021-09-30 11:45 | Discharge Inst-Simple/Standard ---
Discharge Inst-Standard Patient Instructions/Follow Up Plan of Care/Instructions/FU: Please continue to take your medications as written. Please follow up with your primary care doctor to follow up this hospital stay. Activity as Tolerated: Yes Discharge Diet: Cardiac Diet Return to The Hospital For: Chest pain, shortness of breath, fever, weakness, if you feel you are getting worse. SERGEY DELGADILLO MD Sep 30, 2021 11:44
--- NOTE | 2021-09-30 12:14 | Short Stay Summary-Hospitalist ---
History of Present Illness HPI/Chief Complaint Patient is 76-year-old female with past medical history of hypertension who presented to the emergency department due to a stroke. She reports that she has had some vision changes and dizziness for the past 3 to 4 weeks. She was seen by her primary care doctor and also her eye doctor who both recommended an MRI. Yesterday she got an MRI and was informed that she had had a stroke and was referred to the emergency department. In the emergency department she had no acute symptoms and her NIH was 1. Her reported that she occasionally has some unsteady gait. The ER was able to obtain the report of her MRI from [facility] which revealed acute to subacute tiny lacunar infarct within the right frontal lobe. [facility] stroke neurology was contacted and agreed that she is not a tPA or intervention candidate but could consider observing overnight. She was seen by physical therapy and Occupational Therapy and did very well. This morning she is requesting discharge home as she states she is back to her baseline and is having no further issues. Source: patient Date Seen 09/30/21 Time Seen by a Provider: 10:15 Attending Physician Eric Nguyen DO PCP Admitting Physician: Spohia Benson MD Attending Physician: Sophia Benson MD Referring Physician Date of Admission Sep 29, 2021 at 14:21 Home Medications & Allergies Home Medications Reviewed patient Home Medication Reconciliation performed by pharmacy medication reconciliations binder technician and/or nursing. Patients Allergies have been reviewed. Allergies Allergies Coded Allergies clindamycin (Verified Allergy, Unknown, SEVERE DIARRHEA, 02/08/17) Past Wcduhko-Efhaue-[id number] Hx Patient Social History Tobacco Use?: No Smoking Status: Never a Smoker Use of E-Cig and/or Vaping dev: No Substance use?: No Alcohol Use?: No Pt feels they are or have been: No Immunizations Up To Date First/Initial COVID19 Vaccinat: UNKNOWN Second COVID19 Vaccination Jesus: UNKNOWN Tetanus Booster (TDap): Unknown Hepatitis A: No Hepatitis B: No PED Vaccines UTD: Yes Seasonal Allergies Seasonal Allergies: Yes Current Status status: No status: No Advance Directives: No Communicates: Verbally Primary Language: Yoruba Preferred Spoken Language: Yoruba Is interpretation needed?: No Implanted or Applied Medical D: None Past Medical History Surgeries: Adenoidectomy, Orthopedic, Tonsillectomy Asthma Currently Using CPAP: No Currently Using BIPAP: No 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 Sexually Transmitted Disease: No UTI-Chronic Gastroesophageal Reflux Arthritis Blood Disorders: No Family Medical History Arthritis Completed stroke Seizure disorder No Family History of: AIDS Abdominal aortic aneurysm Newcastle's disease Alcoholism Alzheimer's disease Aphasia Asthma Cancer of mouth Cardiovascular disease Cataracts Colon cancer Congenital disease Congenital heart disease Coronary thrombosis Cystic fibrosis Deafness or hearing loss Dementia Diabetes mellitus Drug abuse Dysphasia Fibrocystic disease of breast Gastroenteritis Glaucoma Headache disorder Hypercholesterolemia Hypertension Infertility Kidney disease Myocardial infarction Neoplasm Not obtainable due to adoption Osteoporosis Parkinson's disease Prostate cancer Psychosocial problem Respiratory disorder Severe allergy Thyroid disease Tuberculosis Visual disorder No Pertinent Family Hx Review of Systems Constitutional: No chills, No fever EENTM: see HPI Respiratory: No cough, No short of breath Cardiovascular: No chest pain, No edema, No palpitations Gastrointestinal: no symptoms reported Genitourinary: no symptoms reported Musculoskeletal: no symptoms reported Skin: no symptoms reported Psychiatric/Neurological: No Symptoms Reported Physical Exam Physical Exam Vital Signs Vital Signs - First Documented 09/29/21 11:30 Temp 36.3 Pulse 80 Resp 16 B/P (MAP) 143/59 (87) Pulse Ox 96 O2 Delivery Room Air Capillary Refill : Less Than 3 Seconds Height, Weight, BMI Height: 5'5.00" Weight: 230lbs. 4.8oz. [id number]; 56.26 BMI Method:Stated General Appearance: No Apparent Distress, WD/WN, Chronically ill, Obese HEENT: PERRL/EOMI, Moist Mucous Membranes; No Scleral Icterus (L), No Scleral Icterus (R); Other (keeps right eye closed voluntarily- can open) Neck: Normal Inspection, Supple Respiratory: Lungs Clear, No Accessory Muscle Use, No Respiratory Distress Cardiovascular: Regular Rate, Rhythm, No JVD, No Murmur Gastrointestinal: Normal Bowel Sounds, Non Tender, Soft Extremity: Normal Capillary Refill, No Calf Tenderness, No Pedal Edema Neurologic/Psychiatric: Alert, Oriented x3, Normal Mood/Affect Results Results/Procedures Labs Patient resulted labs reviewed. Imaging: Reviewed Imaging Report [facility] [place] [place] NAME: STEPHLYNNETTE M [facility] REC#: [id number] PT STATUS: ADM Nazario : 1945 PHYSICIAN: KATLYN LING ADMIT DATE: 09/29/21 Signed Date of Exam:09/29/21 CT HEAD WO-R/O STROKE PROCEDURE: CT head wo r/o stroke. TECHNIQUE: Multiple contiguous axial images were obtained through the brain without the use of intravenous contrast. Auto Exposure Controls were utilized during the CT exam to meet ALARA standards for radiation dose reduction. INDICATION: Blurred vision and dizziness for 3 weeks. Comparison is made with prior head CT from 03/16/2019. The ventricles and sulci are consistent with the patient's age. There is moderate periventricular low-attenuation consistent with chronic microvascular ischemia. There is no midline shift. No acute intra-axial or extra-axial hemorrhage is detected. Old lacunar infarct right thalamus is noted. IMPRESSION: Chronic changes. No acute intracranial process is detected. Dictated by: Dictated on workstation # [id number] Dict: 09/29/21 1235 Trans: 09/29/21 1627 [facility] [id number] Interpreted by: JOANN MERCER MD Electronically signed by: JOANN MERCER MD 09/29/21 1627 [facility], [place] NAME: LYNNETTE CHOI [facility] REC#: [id number] PT STATUS: ADM Nazario : 1945 PHYSICIAN: KATLYN LING ADMIT DATE: 09/29/21 Signed Date of Exam:09/29/21 CT ANGIO HEAD/NECK Clinical Indication: The patient complains of blurry vision and dizziness x3 weeks. The patient had an MRI that showed a stroke this morning. Exams: 1: Head CT with and without IV contrast. Auto Exposure Controls were utilized during the CT exam to meet ALARA standards for radiation dose reduction. 2: CT angiogram of the head and neck performed with 100 cc of Omnipaque 350 IV contrast. Sagittal and coronal MIP reformations were created for better visualization of vascular anatomy. CT angiogram was post-processed using RAPID LVO detection to include quantitative measurements of cerebral blood flow and automated results notification to the stroke and/or neurointerventional team. Comparison: Head CT without contrast dated 09/29/2021.. Findings: Head CT: There is no abnormal IV contrast enhancement. There is no definite transcortical low density changes related to infarct. There are multiple patchy and confluent areas of low-density involving the white matter of both cerebral hemispheres which may be related to chronic small vessel ischemic disease. If the patient had an infarct on prior MRI, low-density white matter changes may obscure the infarct, depending on its location. There is no brain herniation or midline shift. Nonspecific thickening of the infundibulum measuring roughly 6 mm in width. There is no definite mass of the sellar or suprasellar region. Partial empty sella turcica is noted. There is no intracranial hemorrhage. There is no hydrocephalus. Basal cisterns are unremarkable. The extracranial soft tissues, skull, and orbits are unremarkable. Paranasal sinuses and mastoid air cells are clear. CT Angiogram: Three-vessel aortic arch is seen. Streak artifact obscures portions of the proximal right subclavian artery. There is mild stenosis. The remainder of the right subclavian artery is patent. The brachiocephalic artery and left subclavian artery are patent. The right common carotid artery, right ECA, cervical right ICA are patent. There is artifact slightly obscuring the mid left common carotid artery. Otherwise, the left common carotid artery, left ECA, and cervical left ICA are patent. The petrous, cavernous, and supraclinoid ICA are patent. The bilateral ACAs and distal branches are patent. The bilateral MCAs and distal branches are patent. The bilateral cervical vertebral arteries are patent. The intradural bilateral vertebral arteries, PICA, basilar artery, bilateral superior and cerebellar arteries are patent. Right posterior communicating artery is seen. The bilateral reflow operator and distal branches are patent. Dural venous sinuses are patent. The neck soft tissue structures are unremarkable. Visualized upper lung hancock show mild atelectasis. There is a 7 mm nodule involving the right upper lobe. IMPRESSION: 1: There is no dense vessel sign seen. There is no gross CT evidence of interval acute cerebral infarction, intracranial hemorrhage, or mass seen. The diffuse low attenuation changes throughout the brain parenchyma may possibly obscure more subtle findings. If the patient had infarct on outside MRI, this may be below resolution of CT or obscured by brain parenchymal low density. 2: Chronic small vessel ischemic disease. 3: CT angiogram of the [place] and neck shows no large vessel occlusion, intravascular thrombosis, significant stenosis, vascular malformation, or aneurysm. Results of this report were discussed with ZOILA Peterson via the telephone on 09/29/2021 at 1330 hours. Dictated by: Dictated on workstation # [id number] Dict: 09/29/21 1314 Trans: 09/29/21 170 [facility] [id number] Interpreted by: CARMINA WOODARD MD Electronically signed by: CARMINA WOODARD MD 09/29/219 Short Stay Diagnosis Discharge Diagnosis-Short Stay Admission Diagnosis CVA Final Discharge Diagnosis CVA Conclusion Plan CVA Outpatient MRI confirms lacunar infarct Symptoms improving Ambulating 200 feet with PT Will start on statin and aspirin for secondary prevention CTA neck without stenosis Needs outpatient follow up with her PCP and optometry as scheduled Seen by PT/OT/TECHNOLOGY APPLICATIONS CONSULTANT Diagnosis/Problems Diagnosis/Problems (1) Stroke Status: Acute Qualifiers: Qualified Codes: I63.9 - Cerebral infarction, unspecified (2) Double vision Status: Acute (3) Essential (primary) hypertension Status: Chronic Copy Copies To 1: ERIC NGUYEN KATELYN M MD Sep 30, 2021 12:14
--- NOTE | 2021-09-30 13:33 | D/C HH Face to Face Order ---
D/C Face to Face Orders Instructions for Patient [facility], Patient Instructions/FollowUp: Please continue to take your medications as written. Please follow up with your primary care doctor to follow up this hospital stay. Physician to follow Patient: Dr Nguyen Discharge Diet for Home: Cardiac Diet Patient Data-Allergies,Ht & Wt Patient Allergies: Coded Allergies: clindamycin (Verified Allergy, Unknown, SEVERE DIARRHEA, 02/08/17) Height (Feet): 5 Height (Inches): 5.00 Weight (Pounds): 230 Weight (Ounces): 4.8 Home Health Need/Face to Face Date of Face to Face: Sep 30, 2021 Clinical Findings: Generalized weakness and fatigue, Unsteady gait I have seen Pt [id number]: Yes Discharged To: Home Diagnosis/Conditions: Stroke Patient is Homebound due to: Yordy fall risk due to instabilty Homebound Status Due to the above stated illness, injury or surgical procedure (medical condition or diagnosis) and associated clinical findings, the patient is homebound because of his/her inability to leave home except with aid of a supportive device and/or person AND leaving the home requires a considerable and taxing effort or is medically contraindicated. Pt req the following assistanc: Aid of another person, Cane Home Health Nursing Orders Home Health Services Order: Physical Therapy-Evaluate & Treat Therapy Orders Therapy Orders: Physical Therapy Therapy Specific Orders: Eval assistive deivces, Teach enviro modifications/safety, Gait training, Increase strength/endurance Certify Stmt I certify that this patient is under my care and that I, a nurse practitioner or a physician; a contact lens assistant working with me, had a face to face encounter that - meets the physician face to face encounter requirements with this patient as dated. SERGEY DELGADILLO MD Sep 30, 2021 13:33
[2021-09-30 14:26] VITALS: BP 135/81
== END 2021-09-30 14:28 | disposition home health service (06) ==
LOC: EDUNIT# 11:30 → ER 11:31 → 4TH 14:21
PROVIDERS: ADMIT Family Medicine; ATTEND Family Medicine
DX: I63.9 Cerebral infarction, unspecified (principal); I10 Essential (primary) hypertension; H53.2 Diplopia
CPT/HCPCS: 36415; 70450; 70496; 70498; 71045; 80048; 80053; 80061; 81000; 82947; 84484; 85025; 85027; 85610; 85730; 87077; 87088; 87186; 93005; 93041; 93306; 96372; G0378

== ENCOUNTER → 2021-10-19 | Outpatient (RCR) | payer MEDICARE, MEDICAID ==
[~2021-10-19] MED LIST changes: +ASPI-999 PO; +ATOR80TA76 PO
== END | disposition home or self-care (01) ==
PROVIDERS: ATTEND Internal Medicine
DX: Z86.73 Personal history of transient ischemic attack (TIA), and cerebral infarction without residual deficits (principal)

== ENCOUNTER → 2021-11-03 | Outpatient (CLI) | payer MEDICARE, MEDICAID ==
--- NOTE | 2021-11-03 14:02 | Diagnostic Imaging Report ---
INDICATION: Palpable lump right breast. Comparison is made to prior mammogram 03/16/2019 and 03/10/2018. 2-D and 3-D bilateral diagnostic mammography was performed with CAD. BB markers were placed at the area of palpable abnormality right breast. There is a lobulated mass that has developed in the medial right breast inferiorly. This likely accounts for the more medially located palpable lump. There is a BB marker more laterally. No underlying abnormality is seen. There is benign calcification in the upper outer left breast. Circumscribed nodule retroareolar left breast is noted. No malignant-appearing microcalcifications are seen. The biopsy clip in the upper outer right breast. IMPRESSION: 1. Development of a lobulated mass in the lower inner right breast. Further evaluation of this area with ultrasound is recommended. In addition, ultrasound evaluation of the additional region of palpable abnormality more laterally in the right breast is recommended. 2. Circumscribed nodule retroareolar left breast. Further evaluation of this area with ultrasound is recommended and will be performed today. ACR BI-RADS Category 0: Incomplete. (Needs additional imaging evaluation). Result letter will be mailed to the patient. Note: At least 10% of breast cancer is not imaged by mammography. BI-RADS 0 Dictated by: Dictated on workstation # [id number]
--- NOTE | 2021-11-03 20:35 | Diagnostic Imaging Report ---
INDICATION: Palpable lumps of right breast. COMPARISON: Correlation is made with diagnostic mammogram from earlier the same day. EXAMINATION: Sonographic interrogation of the slightly outer and slightly inner right breast was performed. FINDINGS: There is an irregular hypoechoic solid mass at the 3:00-3:30 location of the right breast, 1-2 cm from the nipple, measuring 2.8 x 2.8 x 2.6 cm. This does show posterior acoustic shadowing and internal vascularity. This is highly concerning for a breast neoplasm. This does correspond to the more medial palpable lump. Sonographic interrogation of the lateral lump demonstrates a slightly irregular hypoechoic mass at the 8-9 o'clock location, 1-2 cm from the nipple, measuring 1.2 x 1.3 x 1.0 cm. This too shows posterior acoustic shadowing. Tissue sampling of this lesion would be recommended. The left breast does contain a simple cyst in the retroareolar region measuring approximately 6 cm x 7 mm x 9 mm corresponding to the mammographic density. Sonographic interrogation of the right axilla was performed. There are several lymph nodes present, largest 2.1 x 1.2 x 1.7 cm. This does show fatty hilum. IMPRESSION: 1. A dominant irregular mass at the 3:00-3:30 location of the right breast concerning for breast malignancy. There is a smaller indeterminate nodule at the 8-9 o'clock location, 1-2 cm from the nipple. A satellite lesion cannot be excluded. 2. Simple cyst in retroareolar left breast. Both of these lesions should be sampled. These would be amenable to ultrasound guidance. ACR BI-RADS Category 4: Suspicious abnormality. Result letter will be mailed to the patient. Note: At least 10% of breast cancer is not imaged by mammography. Dictated by: Dictated on workstation # [id number]
== END ==
LOC: RAD 12:48
PROVIDERS: ATTEND Internal Medicine
DX: N63.14 Unspecified lump in the right breast, lower inner quadrant (principal); N60.02 Solitary cyst of left breast
CPT/HCPCS: 76642; 77066; G0279; 77062

== ENCOUNTER 2021-11-07 12:55 | Outpatient (RCR) | payer MEDICARE, MEDICAID | END 2021-11-19 | disposition home or self-care (01) | PROVIDERS: ATTEND Internal Medicine | DX: Z86.73 Personal history of transient ischemic attack (TIA), and cerebral infarction without residual deficits (principal) ==

== ENCOUNTER → 2021-11-10 | Outpatient (CLI) | payer MEDICARE, MEDICAID ==
[~2021-11-10] VITALS: Ht 165.1 cm; Wt 127.3 kg
[~2021-11-10] MED LIST changes: +LIDOCAINE 1% INJ 50 ML (XYLOCAINE) VIAL IJ ONE; +LIDOCAINE 1% INJ 50 ML (XYLOCAINE) VIAL ONE
--- NOTE | 2021-11-10 12:15 | Diagnostic Imaging Report ---
INDICATION: Right breast mass. The patient was brought to the sonographic suite and placed on the table in the supine position. Ultrasound imaging of the right breast was performed to evaluate appropriate entry site. Right breast was then prepped and draped in the usual sterile fashion. A small amount 1% lidocaine was utilized for local anesthesia. A total of 4 core biopsies were obtained of the hypoechoic mass at the 3:00 to 3:30 location of the right breast utilizing the 14-gauge Achieve needle. A marker clip was then deployed. Hemostasis was obtained using manual compression. Patient tolerated the procedure well. IMPRESSION: Successful ultrasound guided core biopsy of the large mass at the 3:00 to 3:30 location of the right breast. Pathology results are currently pending. Dictated by: Dictated on workstation # [id number]
--- NOTE | 2021-11-10 12:21 | Diagnostic Imaging Report ---
INDICATION: Right breast nodule. The patient presents for ultrasound guided biopsy. The patient was brought to the sonographic suite and placed on the table in the supine position. Ultrasound imaging of the right breast was performed to evaluate the appropriate entry site. The right breast was then prepped and draped in the usual sterile fashion. A small amount of 1% lidocaine was utilized for local anesthesia. Three core biopsies were made of the mixed echogenicity nodule at the 8:00 location of the right breast, 1 to 2 cm from the nipple utilizing the 14-gauge Achieve needle. Marker clip was then deployed. Hemostasis was obtained. Patient tolerated the procedure well was sent for post procedure mammogram in satisfactory condition. IMPRESSION: Successful ultrasound guided core biopsy of the mixed echogenicity nodule at the 8:00 location of the right breast. Pathology results are currently pending. Dictated by: Dictated on workstation # [id number]
--- NOTE | 2021-11-10 12:45 | Diagnostic Imaging Report ---
INDICATION: Right breast masses. Patient is status post ultrasound-guided core biopsy of a mass at 3:00 and 8:00 locations of the right breast. 2-D, CC and ML mammography was performed after patient underwent breast biopsy. There is a marker clip within the lobulated mass in the inner aspect of the right breast. There is a second marker slightly more lateral and slightly more anterior in the right breast from biopsy of the second lesion. IMPRESSION: Marker clips, as described. Dictated by: Dictated on workstation # [id number]
== END ==
LOC: RAD 09:00
PROVIDERS: ATTEND Internal Medicine
DX: N63.13 Unspecified lump in the right breast, lower outer quadrant (principal); Z98.890 Other specified postprocedural states; Z98.82 Breast implant status
CPT/HCPCS: 19083; 19084; 77065; G0279

== ENCOUNTER 2022-01-17 07:13 | Emergency (ER) | payer MEDICARE, MEDICAID ==
[~2022-01-17] VITALS: Ht 165 cm; Wt 102.0 kg
[~2022-01-17 07:13] MED LIST changes: -LIDOCAINE 1% INJ 50 ML (XYLOCAINE) VIAL IJ ONE; -LIDOCAINE 1% INJ 50 ML (XYLOCAINE) VIAL ONE
[2022-01-17 07:37] LABS: BASOPHILS % (AUTO) 1 % (0-10); EOSINOPHILS # (AUTO) 0.2 10^3/uL (0.0-0.3); EOSINOPHILS % (AUTO) 3 % (0-10); HEMATOCRIT 29 % (35-52); HEMOGLOBIN 9.4 g/dL (11.5-16.0); LYMPHOCYTES # (AUTO) 1.3 10^3/uL (1.0-4.0); LYMPHOCYTES % (AUTO) 24 % (12-44); MEAN CORPUSCULAR HEMOGLOBIN 31 pg (25-34); MEAN CORPUSCULAR HGB CONC 32 g/dL (32-36); MEAN CORPUSCULAR VOLUME 98 fL (80-99); MEAN PLATELET VOLUME 9.6 fL (9.0-12.2); MONOCYTES # (AUTO) 0.6 10^3/uL (0.0-1.0); MONOCYTES % (AUTO) 10 % (0-12); NEUTROPHILS # (AUTO) 3.5 10^3/uL (1.8-7.8); NEUTROPHILS % (AUTO) 62 % (42-75); PLATELET COUNT 244 10^3/uL (130-400); WHITE BLOOD COUNT 5.6 10^3/uL (4.3-11.0)
[2022-01-17 07:47] LABS: BILIRUBIN,URINE NEGATIVE (NEGATIVE); CLARITY,URINE CLEAR; COLOR,URINE YELLOW; GLUCOSE, URINE (UA) NEGATIVE (NEGATIVE); KETONES,URINE NEGATIVE (NEGATIVE); LEUKOCYTE ESTERASE ,URINE NEGATIVE (NEGATIVE); NITRITE,URINE NEGATIVE (NEGATIVE); PROTEIN,URINE NEGATIVE (NEGATIVE)
[2022-01-17 07:55] LABS: ALBUMIN 3.6 GM/DL (3.2-4.5); POTASSIUM 4.4 MMOL/L (3.6-5.0)
[2022-01-17 07:56] LABS: CALCIUM 9.4 MG/DL (8.5-10.1)
[2022-01-17 07:57] LABS: TOTAL PROTEIN 6.9 GM/DL (6.4-8.2)
[2022-01-17 07:59] LABS: BILIRUBIN,TOTAL 0.4 MG/DL (0.1-1.0)
[2022-01-17 08:01] LABS: CREATININE SERUM 1.16 MG/DL (0.60-1.30)
[2022-01-17 08:04] LABS: MAGNESIUM 1.9 MG/DL (1.6-2.4)
[2022-01-17 08:09] LABS: BACTERIA,URINE NEGATIVE /HPF; SQUAMOUS EPITHELIAL CELL,UR 25-50 /HPF
[2022-01-17 08:24] LABS: TSH (THYROID ANALYZER) 1.37 UIU/ML (0.35-4.94)
[2022-01-17] MEDS ORDERED: NS IV 1000 ML 1,000 ML IV SCH (08:45)
--- NOTE | 2022-01-17 09:56 | Diagnostic Imaging Report ---
PROCEDURE: CT head and CT cervical spine without contrast. TECHNIQUE: Multiple contiguous axial images were obtained through the brain and cervical spine without the use of intravenous contrast. Sagittal and coronal reformations through the cervical spine were then performed. Auto Exposure Controls were utilized during the CT exam to meet ALARA standards for radiation dose reduction. INDICATION: Trauma. COMPARISON: CT head and CT angiographic neck dated 09/29/2021. FINDINGS: HEAD: Mild chronic senescent atrophy is stable. There is no hydrocephalus. There is no intracerebral hemorrhage and no acute or abnormal extra-axial fluid collection is found. There is no calvarial fracture deformity. There is no hemo-sinus or pneumocephalus. There is no evidence for elevated intracranial pressures and no focal or generalized cerebral edema is identified. The intracranial vascular calcifications, atherosclerotic, are chronic. CERVICAL SPINE: Reconstruction views reveal stable anatomic alignment of the cervical spine with the vertebral statures maintained. No fracture or paraspinal hemorrhage. Chronic degenerative changes to the discs, endplates, and facets are stable. The thoracic inlet and visualized pulmonary apices are nonacute. No high-grade canal stenosis. IMPRESSION: Stable chronic findings at CT head and CT cervical spine. No acute appearing abnormality. Dictated by: Dictated on workstation # [id number]
[2022-01-17] MEDS ORDERED: RT-ALBUTEROL/IPRATROPIUM 3 ML (DUONEB) VIAL INH ONE (12:00)
--- NOTE | 2022-01-17 12:24 | Diagnostic Imaging Report ---
EXAMINATION: Chest 1 view HISTORY: Cough COMPARISON: 09/29/2021. FINDINGS: Heart size and pulmonary vasculature are normal. The lungs are clear without consolidation, pleural effusion, or pneumothorax. The osseous structures are intact. IMPRESSION: 1. No acute radiographic abnormality in the chest. Dictated by: Dictated on workstation # [id number]
--- NOTE | 2022-01-17 14:32 | ED General ---
General Chief Complaint: Neuro-Stroke Like Symptoms Stated Complaint: STROKE SYMPTOMS Nursing Triage Note: ARRIVED VIA EMS FROM HOME. STATES AT APPX 2100 LAST NIGHT SHE STARTED HAVING TROUBLE MOVING AND FELT STIFF. WOKE UP THIS MORNING NOT BEING ABLE TO MOVE ANYTHING BUT MORE SO ON THE RIGHT. EMS REPORTS A BLOOD SUGAR OF 152 Source of Information: Patient Exam Limitations: No Limitations History of Present Illness Date Seen by Provider: Jan 17, 2022 Time Seen by Provider: 07:14 Initial Comments This 76-year-old woman presents to the emergency room via EMS with complaint of diffuse weakness this morning. She felt relatively well at 2100 last night before taking a shower. After taking a shower she noted feeling weak and stiff. She woke this morning unable to get up. She normally gets up with assistance and then can ambulate after assistance up. She denies any specific focal neurologic deficit but is diffusely weak. Blood sugar for EMS was 152. Patient recently had treatment for breast cancer with double mastectomy on December 29. She was to follow-up with an oncologist, Dr. Colindres, in [place] this morning. She denies any recent acute illness. She does exhibit a little bit of increased expiratory effort indicative of COPD exacerbation. She takes nebulized treatments at home. Allergies and Home Medications Allergies Coded Allergies: clindamycin (Verified Allergy, Unknown, SEVERE DIARRHEA, 02/08/17) Patient Home Medication List Home Medication List Reviewed: Yes Albuterol Sulfate (Proair Hfa) 1 Puff Puff, 2 PUFF INH QID PRN for SHORTNESS OF BREATH, (Reported) Entered as Reported by: PAYAL OSORIO on 02/08/17 0847 Aspirin (Aspirin) 81 Mg Tab.chew, 81 MG PO DAILY Prescribed by: SERGEY DELGADILLO on 09/30/21 1143 Atorvastatin Calcium (Atorvastatin Calcium) 80 Mg Tablet, 80 MG PO DAILY Prescribed by: SERGEY DELGADILLO on 09/30/21 1143 Cetirizine HCl (Cetirizine HCl) 10 Mg Tablet, 10 MG PO HS, (Reported) Entered as Reported by: GUANAKITO EVANS on 02/08/17 1108 Fluticasone Propionate (Fluticasone Propionate) 16 Gm [place].susp, 1 SPRAY NS DAILY, (Reported) Entered as Reported by: PAYAL OSORIO on 01/18/17 0838 Metoprolol Tartrate (Metoprolol Tartrate) 50 Mg Tablet, 50 MG PO BID, (Reported) Entered as Reported by: GUANAKITO EVANS on 02/08/17 1110 Montelukast Sodium (Montelukast Sodium) 10 Mg Tablet, 10 MG PO HS, (Reported) Entered as Reported by: PAYAL OSORIO on 01/18/17 0838 Multivit-Min/FA/Lycopene/Lut (Centrum Silver Tablet) 1 Each Tablet, 1 TAB PO DAILY, (Reported) Entered as Reported by: GUANAKITO EVANS on 02/08/17 1113 Naproxen Sodium (Aleve) 220 Mg Tablet, 440 MG PO HS PRN for PAIN-MILD, (Reported) Entered as Reported by: GUANAKITO EVANS on 02/08/17 1114 Omeprazole (Omeprazole) 20 Mg Capsule.dr, 20 MG PO BID, (Reported) Entered as Reported by: PAYAL OSORIO on 01/18/17 0838 Review of Systems Review of Systems Constitutional: see HPI; No fever; weakness EENTM: no symptoms reported Respiratory: see HPI Cardiovascular: no symptoms reported Gastrointestinal: no symptoms reported Genitourinary: no symptoms reported Musculoskeletal: no symptoms reported Skin: no symptoms reported Psychiatric/Neurological: See HPI Hematologic/Lymphatic: See HPI Immunological/Allergic: no symptoms reported Past Hbcqkib-Iuajmz-Jefkix Hx Patient Social History Tobacco Use?: No Substance use?: No Alcohol Use?: No Immunizations Up To Date Tetanus Booster (TDap): More than 5yrs PED Vaccines UTD: Yes First/Initial COVID19 Vaccinat: UNKNOWN Second COVID19 Vaccination Jesus: UNKNOWN Third COVID19 Vaccination Date: UNKNOWN 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 Seasonal Allergies Seasonal Allergies: Yes Past Medical History Surgeries: Yes Adenoidectomy, Breast (Bilateral mastectomy), Orthopedic, Tonsillectomy Respiratory: Yes Asthma, COPD Currently Using CPAP: No Currently Using BIPAP: No Cardiac: Yes Hypertension Neurological: No : No Reproductive Disorders: No 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 Sexually Transmitted Disease: No Genitourinary: Yes UTI-Chronic Gastrointestinal: Yes Gastroesophageal Reflux Musculoskeletal: Yes (ARTHRITIS, CHRONIC PAIN, spinal stenosis) Arthritis Endocrine: No HEENT: No Cancer: No Psychosocial: No Integumentary: No Blood Disorders: No Family Medical History Arthritis Completed stroke Seizure disorder No Family History of: AIDS Abdominal aortic aneurysm Clint's disease Alcoholism Alzheimer's disease Aphasia Asthma Cancer of mouth Cardiovascular disease Cataracts Colon cancer Congenital disease Congenital heart disease Coronary thrombosis Cystic fibrosis Deafness or hearing loss Dementia Diabetes mellitus Drug abuse Dysphasia Fibrocystic disease of breast Gastroenteritis Glaucoma Headache disorder Hypercholesterolemia Hypertension Infertility Kidney disease Myocardial infarction Neoplasm Not obtainable due to adoption Osteoporosis Parkinson's disease Prostate cancer Psychosocial problem Respiratory disorder Severe allergy Thyroid disease Tuberculosis Visual disorder No Pertinent Family Hx Physical Exam Vital Signs Vital Signs - First Documented 01/17/22 07:13 Temp 36.4 Pulse 75 Resp 16 B/P (MAP) 176/107 (130) Pulse Ox 97 O2 Delivery Room Air Capillary Refill : Less Than 3 Seconds Height, Weight, BMI Height: 5'5.00" Weight: 230lbs. 4.8oz. [id number]; 37.00 BMI Method:Stated General Appearance: No Apparent Distress, WD/WN, Obese HEENT: PERRL/EOMI, Normal ENT Inspection Neck: Normal Inspection Respiratory: Lungs Clear, Normal Breath Sounds, Other (Prolonged expiratory phase and increased expiratory work of breathing) Cardiovascular: Regular Rate, Rhythm, No Murmur Gastrointestinal: Normal Bowel Sounds, Non Tender, Soft Extremity: Normal Inspection, Pedal Edema Neurologic/Psychiatric: Alert, Oriented x3, Normal Mood/Affect, Motor Weakness (Global, no focal deficits) Skin: Normal Color, Warm/Dry Progress/Results/Core Measures Suspected Sepsis SIRS Temperature: Pulse: 75 Respiratory Rate: 16 Laboratory Tests 01/17/22 07:19: White Blood Count 5.6 Blood Pressure 176 /107 Mean: 130 Laboratory Tests 01/17/22 07:19: Creatinine 1.16, Platelet Count 244, Total Bilirubin 0.4 Results/Orders Lab Results Laboratory Tests Test 01/17/22 07:19 01/17/22 07:29 01/17/22 07:40 Range/Units White Blood Count 5.6 4.3-11.0 10^3/uL Red Blood Count 2.99 L 3.80-5.11 10^6/uL Hemoglobin 9.4 L 11.5-16.0 g/dL Hematocrit 29 L 35-52 % Mean Corpuscular Volume 98 80-99 fL Mean Corpuscular Hemoglobin 31 25-34 pg Mean Corpuscular Hemoglobin Concent 32 32-36 g/dL Red Cell Distribution Width 15.2 H 10.0-14.5 % Platelet Count 244 130-400 10^3/uL Mean Platelet Volume 9.6 9.0-12.2 fL Immature Granulocyte % (Auto) 0 % Neutrophils (%) (Auto) 62 42-75 % Lymphocytes (%) (Auto) 24 12-44 % Monocytes (%) (Auto) 10 0-12 % Eosinophils (%) (Auto) 3 0-10 % Basophils (%) (Auto) 1 0-10 % Neutrophils # (Auto) 3.5 1.8-7.8 10^3/uL Lymphocytes # (Auto) 1.3 1.0-4.0 10^3/uL Monocytes # (Auto) 0.6 0.0-1.0 10^3/uL Eosinophils # (Auto) 0.2 0.0-0.3 10^3/uL Basophils # (Auto) 0.0 0.0-0.1 10^3/uL Immature Granulocyte # (Auto) 0.0 0.0-0.1 10^3/uL Sodium Level 143 135-145 MMOL/L Potassium Level 4.4 3.6-5.0 MMOL/L Chloride Level 108 H 98-107 MMOL/L Carbon Dioxide Level 21 21-32 MMOL/L Anion Gap 14 5-14 MMOL/L Blood Urea Nitrogen 16 7-18 MG/DL Creatinine 1.16 0.60-1.30 MG/DL Estimat Glomerular Filtration Rate 49 BUN/Creatinine Ratio 14 Glucose Level 122 H 70-105 MG/DL Calcium Level 9.4 8.5-10.1 MG/DL Corrected Calcium 9.7 8.5-10.1 MG/DL Magnesium Level 1.9 1.6-2.4 MG/DL Total Bilirubin 0.4 0.1-1.0 MG/DL Aspartate Amino Transf (AST/SGOT) 37 H 5-34 U/L Alanine Aminotransferase (ALT/SGPT) 23 0-55 U/L Alkaline Phosphatase 109 40-136 U/L Total Creatine Kinase 132 29-168 U/L C-Reactive Protein High Sensitivity 0.36 0.00-0.50 MG/DL Total Protein 6.9 6.4-8.2 GM/DL Albumin 3.6 3.2-4.5 GM/DL TSH [place] Testing 1.37 0.35-4.94 UIU/ML Influenza Type A (RT-PCR) Not Detected Not Detecte Influenza Type B (RT-PCR) Not Detected Not Detecte SARS-CoV-2 RNA (RT-PCR) Not Detected Not Detecte Urine Color YELLOW Urine Clarity CLEAR Urine pH 6.0 5-9 Urine Specific [place] <=1.005 1.016-1.022 Urine Protein NEGATIVE NEGATIVE Urine Glucose (UA) NEGATIVE NEGATIVE Urine Ketones NEGATIVE NEGATIVE Urine Nitrite NEGATIVE NEGATIVE Urine Bilirubin NEGATIVE NEGATIVE Urine Urobilinogen 0.2 < = 1.0 MG/DL Urine Leukocyte Esterase NEGATIVE NEGATIVE Urine RBC (Auto) NEGATIVE NEGATIVE Urine RBC NONE /HPF Urine WBC NONE /HPF Urine Squamous Epithelial Cells 25-50 H /HPF Urine Crystals NONE /LPF Urine Bacteria NEGATIVE /HPF Urine Casts NONE /LPF Urine Mucus NEGATIVE /LPF Urine Culture Indicated NO My Orders Orders - JOLENE CLIFFORD MD Cbc With Automated Diff (01/17/22 07:28) Comprehensive Metabolic Panel (01/17/22 07:28) Creatine Kinase (01/17/22 07:28) Magnesium (01/17/22 07:28) Thyroid Analyzer (01/17/22 07:28) Ua Culture If Indicated (01/17/22 07:28) Ed Iv/Invasive Line Start (01/17/22 07:28) Ns Iv 1000 Ml (Sodium Chloride 0.9%) (01/17/22 08:45) Covid 19 Inhouse Test (01/17/22 08:37) Influenza A And B By Pcr (01/17/22 08:37) Ct Head/Cervical Spine Wo (01/17/22 08:39) Chest 1 View, Ap/Pa Only (01/17/22 11:45) Hs C Reactive Protein (01/17/22 11:45) Albuterol/Ipra Inhalation Soln (Duoneb I (01/17/22 12:00) Svn Small Volume Nebulizer (01/17/22 11:50) Medications Given in ED Current Medications Medications Dose Ordered Sig/Negar Route Start Time Stop Time Status Last Admin Dose Admin Albuterol/ Ipratropium 3 ml ONCE ONCE INH 01/17/22 12:00 01/17/22 12:01 DC 01/17/22 12:17 3 ML Vital Signs/I&O 01/17/22 01/17/22 01/17/22 07:13 12:20 14:53 Temp 36.4 Pulse 75 68 Resp 16 16 B/P (MAP) 176/107 (130) 152/98 Pulse Ox 97 96 97 O2 Delivery Room Air Room Air Room Air Capillary Refill : Less Than 3 Seconds Blood Pressure Mean: 130 Progress Note : Progress Note Work-up was grossly unremarkable. CT of the head was obtained and cervical spine was included as patient gave history of spinal stenosis. Symptoms were global in nature and likely secondary to a systemic or metabolic insult. She was treated with DuoNeb nebulizer for COPD exacerbation and hydrated with a liter of IV fluid. She did gradually improved during the course of her ER stay. She was near her baseline at the time of discharge. I suspect her weakness may be related to medication effect and/or COPD exacerbation with hypercarbia and/or sleep apnea. She does take gabapentin which is known for causing asthenia. Alternatively, global weakness below the neck could be related to cervical spinal stenosis although CT scan did not suggest this. Cervical spinal stenosis was noted on an MRI from 2012. Patient was stable for discharge. See discharge instructions for further discussion. Departure Impression Primary Impression: Generalized weakness Additional Impression: COPD exacerbation Disposition: 01 HOME, SELF-CARE Condition: Improved Departure-Patient Inst. Decision time for Depature: 14:28 Referrals: ANAT BERNABE DO (PCP/Family) Primary Care Physician Patient Instructions: Weakness ED Add. Discharge Instructions: The exact cause of your weakness today is uncertain but several factors may be contributing includin. Medications such as gabapentin causing adverse effects. 2. Uncontrolled COPD causing an increase in carbon dioxide in your blood at night when you sleep. This may be compounded by undiagnosed sleep apnea. 3. Poor hydration. 4. General deconditioning. Follow-up with your primary care provider soon as possible. You may consider stopping gabapentin until you can discuss this with your doctor further. Discuss if testing for sleep apnea would be appropriate at this time. Monitor your COPD symptoms and use your inhaled treatments aggressively if needed if you find yourself feeling weak, short of breath, or excessively groggy. Drink plenty of water to stay well-hydrated. Discuss ways to increase her general conditioning with your primary care provider which might include physical therapy or other exercise programs. All discharge instructions reviewed with patient and/or family. Voiced understanding. Copy Copies To 1: ANAT BERNABE JOSHUA T MD Jan 17, 2022 14:32
[2022-01-17 14:53] VITALS: BP 152/98
== END 2022-01-17 14:53 | disposition home or self-care (01) ==
LOC: EDUNIT# 07:13 → ER 07:14
DX: J44.1 Chronic obstructive pulmonary disease with (acute) exacerbation (principal); R53.1 Weakness; E66.9 Obesity, unspecified; Z68.37 Body mass index [BMI] 37.0-37.9, adult; Z20.822 Contact with and (suspected) exposure to COVID-19
CPT/HCPCS: 36415; 70450; 71045; 72125; 80053; 81000; 82550; 83735; 84443; 85025; 86141; 87636; 94640

== ENCOUNTER 2022-02-08 14:33 | Emergency (ER) | payer MEDICARE, MEDICAID ==
[~2022-02-08] VITALS: Ht 165.1 cm; Wt 122.5 kg
[2022-02-08] MEDS ORDERED: LACTATED RINGERS 1,000 ML IV STA (14:58)
[2022-02-08] MEDS ORDERED: LORazepam 0.5 MG (ATIVAN) TABLET PO ONE (15:00)
[2022-02-08] MEDS ORDERED: ACETAMINOPHEN 500 MG TAB (TYLENOL) PO ONE (15:00)
[2022-02-08] MEDS ORDERED: IBUPROFEN 600 MG (MOTRIN) TAB PO ONE (15:00)
--- NOTE | 2022-02-08 15:02 | ED Lower Extremity ---
General Chief Complaint: Lower Extremity Stated Complaint: PAIN IN BOTH LEGS Nursing Triage Note: pt to ED via [facility]. pt states she has "stiff legs" in bilat lower legs and knees. pt reports hx of osteoarthritis and neuropathy and has pain in bilat legs. pt states this is her main complaint today Source: patient, family Exam Limitations: no limitations History of Present Illness Date Seen by Provider: Feb 08, 2022 Time Seen by Provider: 14:37 Initial Comments 76-year-old female with past medical history most notably for osteoarthritis coming in due to lower extremity stiffness and difficulty walking. She states that been getting more stiff over the past couple days, now she feels like she can barely bend them. Normally walks with a walker, but has not been able to for the past day. Denies any falls, upper extremity pain, chest pain, shortness of breath, abdominal pain, nausea, vomiting, diarrhea, focal weakness or numbness, dysuria, rash, or any other concerns. She states this is happened in the past and felt better after fluids. Allergies and Home Medications Allergies Coded Allergies: clindamycin (Verified Allergy, Unknown, SEVERE DIARRHEA, 02/08/17) Patient Home Medication List Home Medication List Reviewed: Yes Albuterol Sulfate (Proair Hfa) 1 Puff Puff, 2 PUFF INH QID PRN for SHORTNESS OF BREATH, (Reported) Entered as Reported by: PAYAL OSORIO on 02/08/17 0847 Aspirin (Aspirin) 81 Mg Tab.chew, 81 MG PO DAILY Prescribed by: SERGEY DELGADILLO on 09/30/21 1143 Atorvastatin Calcium (Atorvastatin Calcium) 80 Mg Tablet, 80 MG PO DAILY Prescribed by: SERGEY DELGADILLO on 09/30/21 1143 Cetirizine HCl (Cetirizine HCl) 10 Mg Tablet, 10 MG PO HS, (Reported) Entered as Reported by: GUANAKITO EVANS on 02/08/17 1108 Fluticasone Propionate (Fluticasone Propionate) 16 Gm [place].susp, 1 SPRAY NS DAILY, (Reported) Entered as Reported by: PAYAL OSORIO on 01/18/17 0838 Metoprolol Tartrate (Metoprolol Tartrate) 50 Mg Tablet, 50 MG PO BID, (Reported) Entered as Reported by: GUANAKITO EVANS on 02/08/17 1110 Montelukast Sodium (Montelukast Sodium) 10 Mg Tablet, 10 MG PO HS, (Reported) Entered as Reported by: PAYAL OSORIO on 01/18/17 0838 Multivit-Min/FA/Lycopene/Lut (Centrum Silver Tablet) 1 Each Tablet, 1 TAB PO DAILY, (Reported) Entered as Reported by: GUANAKITO EVANS on 02/08/17 1113 Naproxen Sodium (Aleve) 220 Mg Tablet, 440 MG PO HS PRN for PAIN-MILD, (Reported) Entered as Reported by: GUANAKITO EVANS on 02/08/17 1114 Omeprazole (Omeprazole) 20 Mg Capsule.dr, 20 MG PO BID, (Reported) Entered as Reported by: PAYAL OSORIO on 01/18/17 0838 Review of Systems Constitutional: No fever EENTM: no symptoms reported Respiratory: no symptoms reported Cardiovascular: no symptoms reported Gastrointestinal: no symptoms reported Genitourinary: no symptoms reported Musculoskeletal: see HPI Skin: no symptoms reported Psychiatric/Neurological: No Symptoms Reported All Other Systems Reviewed Negative Unless Noted: Yes Past Lnackyu-Ejqpio-Itjrzi Hx Patient Social History Tobacco Use?: No Use of E-Cig and/or Vaping dev: No Substance use?: No Alcohol Use?: No Immunizations Up To Date Tetanus Booster (TDap): More than 5yrs PED Vaccines UTD: Yes Influenza Vaccine Up-to-Date: No; Not Current First/Initial COVID19 Vaccinat: UNKNOWN Second COVID19 Vaccination Jesus: UNKNOWN Third COVID19 Vaccination Date: UNKNOWN Seasonal Allergies Seasonal Allergies: Yes Past Medical History Surgeries: Yes Adenoidectomy, Breast, Orthopedic, Tonsillectomy Respiratory: Yes Asthma, COPD Currently Using CPAP: No Currently Using BIPAP: No Cardiac: Yes Hypertension Neurological: No Reproductive Disorders: No 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 Sexually Transmitted Disease: No Genitourinary: Yes UTI-Chronic Gastrointestinal: Yes Gastroesophageal Reflux Musculoskeletal: Yes (ARTHRITIS, CHRONIC PAIN, spinal stenosis) Arthritis Endocrine: No HEENT: No Cancer: No Psychosocial: No Integumentary: No Blood Disorders: No Family Medical History Arthritis Completed stroke Seizure disorder No Family History of: AIDS Abdominal aortic aneurysm Clint's disease Alcoholism Alzheimer's disease Aphasia Asthma Cancer of mouth Cardiovascular disease Cataracts Colon cancer Congenital disease Congenital heart disease Coronary thrombosis Cystic fibrosis Deafness or hearing loss Dementia Diabetes mellitus Drug abuse Dysphasia Fibrocystic disease of breast Gastroenteritis Glaucoma Headache disorder Hypercholesterolemia Hypertension Infertility Kidney disease Myocardial infarction Neoplasm Not obtainable due to adoption Osteoporosis Parkinson's disease Prostate cancer Psychosocial problem Respiratory disorder Severe allergy Thyroid disease Tuberculosis Visual disorder No Pertinent Family Hx Physical Exam Vital Signs Vital Signs - First Documented 02/08/22 14:35 Temp 37.0 Pulse 96 Resp 24 B/P (MAP) 177/93 (121) Pulse Ox 95 Capillary Refill : Height, Weight, BMI Height: 5'5.00" Weight: 230lbs. 4.8oz. 104.035151yt; 44.00 BMI Method:Stated General Appearance: WD/WN, no apparent distress HEENT: PERRL/EOMI, normal ENT inspection, pharynx normal Neck: non-tender, full range of motion, supple, normal inspection Cardiovascular: regular rate, rhythm, no edema, no murmur Respiratory: chest non-tender, lungs clear, normal breath sounds, no respiratory distress, no accessory muscle use Gastrointestinal: normal bowel sounds, non tender, soft; No distended, No guarding, No rebound Back: normal inspection, no CVA tenderness, no vertebral tenderness Legs: bilateral leg other (Bilateral lower extremities very stiff and difficult to move, exquisitely tender even to light touch anywhere from her hips down to her toes, upper extremities are completely normal, neurovascularly otherwise intact in lower extremities) Neurologic/Tendon: normal sensation, normal motor functions, normal tendon functions 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, no motor/sensory deficits, alert, normal mood/affect, oriented x 3 Skin: normal color, warm/dry Lymphatic: no adenopathy Progress/Results/Core Measures Results/Orders Lab Results Laboratory Tests Test 02/08/22 16:00 Range/Units White Blood Count 7.8 4.3-11.0 10^3/uL Red Blood Count 3.77 L 3.80-5.11 10^6/uL Hemoglobin 11.1 L 11.5-16.0 g/dL Hematocrit 35 35-52 % Mean Corpuscular Volume 92 80-99 fL Mean Corpuscular Hemoglobin 29 25-34 pg Mean Corpuscular Hemoglobin Concent 32 32-36 g/dL Red Cell Distribution Width 13.5 10.0-14.5 % Platelet Count 222 130-400 10^3/uL Mean Platelet Volume 9.5 9.0-12.2 fL Immature Granulocyte % (Auto) 0 % Neutrophils (%) (Auto) 72 42-75 % Lymphocytes (%) (Auto) 17 12-44 % Monocytes (%) (Auto) 9 0-12 % Eosinophils (%) (Auto) 1 0-10 % Basophils (%) (Auto) 1 0-10 % Neutrophils # (Auto) 5.6 1.8-7.8 X 10^3 Lymphocytes # (Auto) 1.4 1.0-4.0 X 10^3 Monocytes # (Auto) 0.7 0.0-1.0 X 10^3 Eosinophils # (Auto) 0.1 0.0-0.3 10^3/uL Basophils # (Auto) 0.0 0.0-0.1 10^3/uL Immature Granulocyte # (Auto) 0.0 0.0-0.1 10^3/uL Sodium Level 141 135-145 MMOL/L Potassium Level 5.0 3.6-5.0 MMOL/L Chloride Level 108 H 98-107 MMOL/L Carbon Dioxide Level 20 L 21-32 MMOL/L Anion Gap 13 5-14 MMOL/L Blood Urea Nitrogen 16 7-18 MG/DL Creatinine 1.07 0.60-1.30 MG/DL Estimat Glomerular Filtration Rate 53 BUN/Creatinine Ratio 15 Glucose Level 84 70-105 MG/DL Calcium Level 9.3 8.5-10.1 MG/DL Corrected Calcium 9.6 8.5-10.1 MG/DL Magnesium Level 1.6 1.6-2.4 MG/DL Total Bilirubin 0.5 0.1-1.0 MG/DL Aspartate Amino Transf (AST/SGOT) 31 5-34 U/L Alanine Aminotransferase (ALT/SGPT) 19 0-55 U/L Alkaline Phosphatase 92 40-136 U/L Total Creatine Kinase 53 29-168 U/L Total Protein 6.9 6.4-8.2 GM/DL Albumin 3.6 3.2-4.5 GM/DL Lipase 37 8-78 U/L My Orders Orders - KATLYN MORALES MD Lorazepam Tablet (Ativan Tablet) (02/08/22 15:00) Lactated Ringers (Lr 1000 Ml Iv Solution (02/08/22 14:58) Cbc With Automated Diff (02/08/22 14:58) Comprehensive Metabolic Panel (02/08/22 14:58) Creatine Kinase (02/08/22 14:58) Lipase (02/08/22 14:58) Magnesium (02/08/22 14:58) Acetaminophen Tablet (Tylenol Tablet) (02/08/22 15:00) Ibuprofen Tablet (Motrin Tablet) (02/08/22 15:00) Chest 1 View, Ap/Pa Only (02/08/22 16:13) Medications Given in ED Current Medications Medications Dose Ordered Sig/Negar Route Start Time Stop Time Status Last Admin Dose Admin Acetaminophen 1,000 mg ONCE ONCE PO 02/08/22 15:00 02/08/22 15:01 DC 02/08/22 15:12 1,000 MG Ibuprofen 600 mg ONCE ONCE PO 02/08/22 15:00 02/08/22 15:01 DC 02/08/22 15:12 600 MG Lorazepam 0.5 mg ONCE ONCE PO 02/08/22 15:00 02/08/22 15:01 DC 02/08/22 15:12 0.5 MG Vital Signs/I&O 02/08/22 02/08/22 02/08/22 14:35 15:12 15:12 Temp 37.0 37.0 37.0 Pulse 96 Resp 24 B/P (MAP) 177/93 (121) Pulse Ox 95 Blood Pressure Mean: 121 Progress Progress Note : Progress Note 76yoF with above history coming in due to leg cramping and pain. ABCs intact and VSS on presentation. Physical exam with leg pain bilaterally without swelling or redness. Does not appear infectious or like a DVT on exam. An IV was placed with ultrasound guidance by myself and labs were drawn. Electrolytes unremarkable, creatinine normal. Patient's cramping feeling better after IV fluids. I discussed with the patient regarding her labs and chest x-ray not showing any significant abnormality. The patient's and the patient herself are voicing concerned that she is unable to function at home, and he is unable to fully care for her given he is unable to lift her, feed her, or assist her with her activities of daily living. She requested admission to [facility] and rehab. They unfortunately are full, so than the patient was requesting [facility] Diagnostic Imaging Diagonstic Imaging: Xray Plain Films/CT/US/NM/MRI: chest Comments NAME: LYNNETTE CHOI [facility] REC#: [id number] PT STATUS: REG ER : 1945 PHYSICIAN: KATLYN MORALES MD ADMIT DATE: 02/08/22/ER Draft Date of Exam:02/08/22 CHEST 1 VIEW, AP/PA ONLY Indication: Shortness of breath. Frontal chest obtained at 4:30 p.m. and compared 01/17/2022. Heart and mediastinal silhouette are normal in appearance. The lungs are clear. There is no pneumothorax or pleural fluid. Impression: Negative chest. Dictated on workstation # [id number] Dict: 02/08/22 1632 Trans: 02/08/[address] [facility] [id number] Interpreted by: SIDDHARTHA MIRANDA MD Electronically signed by: Departure Impression Primary Impression: Leg cramping Disposition: 01 HOME, SELF-CARE Condition: Stable Departure-Patient Inst. Decision time for Depature: 17:42 Referrals: ANAT BERNABE DO (PCP/Family) Primary Care Physician Patient Instructions: Muscle Spasm ED Add. Discharge Instructions: Please drive to [facility] and rehab and they can help you get out of the ca r. Have your go home and get medicines and bring them later tonight. KATLYN MORALES MD Feb 08, 2022 15:02
[2022-02-08 16:12] LABS: BASOPHILS % (AUTO) 1 % (0-10); EOSINOPHILS # (AUTO) 0.1 10^3/uL (0.0-0.3); EOSINOPHILS % (AUTO) 1 % (0-10); HEMATOCRIT 35 % (35-52); HEMOGLOBIN 11.1 g/dL (11.5-16.0); LYMPHOCYTES # (AUTO) 1.4 X 10^3 (1.0-4.0); LYMPHOCYTES % (AUTO) 17 % (12-44); MEAN CORPUSCULAR HEMOGLOBIN 29 pg (25-34); MEAN CORPUSCULAR HGB CONC 32 g/dL (32-36); MEAN CORPUSCULAR VOLUME 92 fL (80-99); MEAN PLATELET VOLUME 9.5 fL (9.0-12.2); MONOCYTES # (AUTO) 0.7 X 10^3 (0.0-1.0); MONOCYTES % (AUTO) 9 % (0-12); NEUTROPHILS # (AUTO) 5.6 X 10^3 (1.8-7.8); NEUTROPHILS % (AUTO) 72 % (42-75); PLATELET COUNT 222 10^3/uL (130-400); WHITE BLOOD COUNT 7.8 10^3/uL (4.3-11.0)
[2022-02-08 16:26] LABS: ALBUMIN 3.6 GM/DL (3.2-4.5)
[2022-02-08 16:28] LABS: CALCIUM 9.3 MG/DL (8.5-10.1)
[2022-02-08 16:29] LABS: TOTAL PROTEIN 6.9 GM/DL (6.4-8.2)
[2022-02-08 16:31] LABS: BILIRUBIN,TOTAL 0.5 MG/DL (0.1-1.0)
[2022-02-08 16:32] LABS: CREATININE SERUM 1.07 MG/DL (0.60-1.30)
[2022-02-08 16:35] LABS: MAGNESIUM 1.6 MG/DL (1.6-2.4)
--- NOTE | 2022-02-08 16:38 | Diagnostic Imaging Report ---
Indication: Shortness of breath. Frontal chest obtained at 4:30 p.m. and compared 01/17/2022. Heart and mediastinal silhouette are normal in appearance. The lungs are clear. There is no pneumothorax or pleural fluid. Impression: Negative chest. Dictated by: Dictated on workstation # [id number]
[2022-02-08 18:38] VITALS: BP 168/93
== END 2022-02-08 18:38 | disposition home or self-care (01) ==
LOC: EDUNIT# 14:33 → ER 14:34
DX: R25.2 Cramp and spasm (principal)
CPT/HCPCS: 36415; 51702; 71045; 80053; 82550; 83690; 83735; 85025

== ENCOUNTER 2023-02-14 14:27 | Outpatient (RCR) | payer MEDICARE, MEDICAID ==
[~2023-02-14 14:27] MED LIST changes: +ALBU8.5H6 INH; -RT-ALBUINH INH
== END 2023-02-19 | disposition home or self-care (01) ==
PROVIDERS: ATTEND Internal Medicine
DX: M62.81 Muscle weakness (generalized) (principal); I10 Essential (primary) hypertension

== ENCOUNTER 2023-03-19 14:31 | Outpatient (RCR) | payer MEDICARE, MEDICAID | END 2023-03-21 | disposition home or self-care (01) | PROVIDERS: ATTEND Internal Medicine | DX: M62.81 Muscle weakness (generalized) (principal); R26.89 Other abnormalities of gait and mobility; I10 Essential (primary) hypertension ==